=== PATIENT | male | born 1945 | race Caucasian/White ===

== ENCOUNTER 2019-10-18 12:38 | Outpatient (CLI) | payer MEDICARE, SELFPAY ==
--- NOTE | ~2019-10-18 | US_ITS ---
EXAMINATION:US venous doppler LE RT INDICATION:Right leg pain and swelling TECHNIQUE: Multiple grayscale, color flow and Doppler images of the right lower extremity deep venous systems were obtained and reviewed. COMPARISON:No prior studies for comparison. FINDINGS: The common femoral, superficial femoral and popliteal veins demonstrate normal respiratory variation, augmentation and compressibility. Color flow is also seen within the posterior tibial, pe roneal, greater saphenous and profunda veins. IMPRESSION: 1: No lower extremity deep venous thrombosis. Reviewed, dictated and finalized at location B.
== END 2019-10-18 12:39 | disposition home or self-care (01) ==
PROVIDERS: PCP Internal Medicine; Visit Provider Internal Medicine
DX: R52 Pain, unspecified (principal); R60.9 Edema, unspecified
CPT/HCPCS: 93971

== ENCOUNTER 2021-05-04 11:36 | Inpatient (IN) | payer MEDICARE, SELFPAY ==
[2021-05-04] VITALS (12 sets, daily range): BP systolic 158–165; BP diastolic 100–118; PULSE 87–104; RESP 18–34; TEMP 37.1; O2SAT 95–97
--- NOTE | ~2021-05-04 | CT_ITS ---
EXAMINATION: CT brain wo con DATE: 05/04/2021 14:03 INDICATION: Slurred speech. Weakness. TECHNIQUE: Computed tomography (CT) of the head was performed without intravenous contrast. The mA wa s adjusted according to patient size. Iterative reconstruction technique was employed. The dose-lengt h product was 681.00 mGy-cm. COMPARISON: Head CT 11/12/2017 FINDINGS: There is an infarct in right parietal occipital region. There are scattered areas of low at tenuation in the cerebral white matter. There is a small old infarct in left parietal lobe. There is no intracranial hemorrhage or abnormal mass lesion. The ventricles are normal in size. There is mild mucosal thickening in the paranasal sinuses. The orbits are normal. There is a right mastoid effusion . IMPRESSION: 1. Age-indeterminate infarct in right parietal occipital region. 2. Small old infarct in left parietal lobe. 3. Moderate nonspecific cerebral white matter disease, which likely represents chronic small vessel i schemic disease. Reviewed, dictated and finalized at location A. CH DUMPER IMPRESSION: 1. Age-indeterminate infarct in right parietal occipital region. 2. Small old infarct in left parietal lobe. 3. Moderate nonspecific cerebral white matter disease, which likely represents chronic small vessel ischemic disease.
--- NOTE | ~2021-05-04 | US_ITS ---
US venous doppler LE RT DATE: 05/04/2021 14:28 INDICATION: Right lower extremity swelling TECHNIQUE: Real-time and color flow imaging and Doppler analysis of the veins of the right lower extr emity COMPARISON: 10/18/2019 venous duplex examination of the right lower extremity FINDINGS: The greater saphenous vein is patent. There is normal color flow signal and augmentation an d normal compression of the deep veins of the right lower extremity. There is no evidence of venous t hrombosis. There is an approximately 3.1 x 0.7 x 1.8 cm popliteal cyst. IMPRESSION: No evidence of deep venous thrombosis Right popliteal cyst Reviewed, dictated and finalized at Location A. Reviewed, dictated and finalized at location A. FORCEMENT MAKER
--- NOTE | ~2021-05-04 | US_ITS ---
EXAMINATION: US carotid duplex BI DATE: 05/05/2021 08:42 INDICATION: Speech deficit. Cerebrovascular accident. TECHNIQUE: Grayscale, color Doppler, and pulsed Doppler images of the cervical carotid arteries were obtained. The degree of vessel stenosis is placed in one of the following categories: normal, <50%, 5 0-69%, >=70% but less than near-occlusion, near-occlusion, or total occlusion. Note that percent sten osis relative to normal distal artery lumen diameter is indirectly measured from velocity measurement s as described by Valentino, et al. Radiology 2003; 229:340-346. COMPARISON: CTA neck 05/04/21 FINDINGS: RIGHT: The right common carotid artery (CCA) peak systolic velocity (PSV) is 72 cm/s. The right internal car otid artery (ICA) PSV is 192 cm/s. The right ICA end-diastolic velocity (EDV) is 81 cm/s. The right I CA/CCA PSV ratio is 2.7. Grayscale and color Doppler images yield an estimate of <50% diameter reduct ion from plaque in the ICA. There is antegrade flow in the right vertebral artery. LEFT: The left CCA PSV is 74 cm/s. The left ICA PSV is 197 cm/s. The left ICA EDV is 74 cm/s. The left ICA/ CCA PSV ratio is 2.7. Grayscale and color Doppler images yield an estimate of <50% diameter reduction from plaque in the ICA. There is antegrade flow in the left vertebral artery. IMPRESSION: 1. <50% stenosis in the right internal carotid artery. 2. <50% stenosis in the left internal carotid artery. Reviewed, dictated and finalized at location A. PATIAL IMAGERY INTELLIGENCE ANALYST
--- NOTE | ~2021-05-04 | XR_ITS ---
EXAMINATION: XR chest 1V portable DATE: 05/06/2021 07:11 INDICATION: Shortness of breath. Bacterial pneumonia and fluid overload. TECHNIQUE: A single frontal view of the chest was obtained. COMPARISON: Chest single view 05/04/2021 FINDINGS: There are airspace opacities in all lung zones bilaterally, left worse in right. No pleural effusion or pneumothorax. Cardiomegaly is noted. IMPRESSION: 1. Diffuse lung disease with improvement on the right, consistent with pulmonary edema versus pneumon ia. 2. Cardiomegaly. Reviewed, dictated and finalized at location A. WARE QUALITY ANALYST IMPRESSION: 1. Diffuse lung disease with improvement on the right, consistent with pulmonar y edema versus pneumonia. 2. Cardiomegaly.
--- NOTE | ~2021-05-04 | XR_ITS ---
EXAMINATION: XR chest 1V portable DATE: 05/04/2021 12:56 INDICATION: Shortness of breath. TECHNIQUE: A single frontal view of the chest was obtained. COMPARISON: Chest 2 views 09/25/2013, CT abdomen and pelvis 01/12/2017 FINDINGS: There are airspace opacities in the mid and lower lung zones. No pleural effusion or pneumo thorax. Cardiomegaly is noted. There are old healed right rib fractures. IMPRESSION: 1. Airspace opacities in the mid and lower lung zones, consistent with pulmonary edema versus pneumon ia. 2. Cardiomegaly. Reviewed, dictated and finalized at location A. INSPECTOR IMPRESSION: 1. Airspace opacities in the mid and lower lung zones, consistent with pulmonar y edema versus pneumonia. 2. Cardiomegaly.
--- NOTE | ~2021-05-04 | CT_ITS ---
EXAMINATION: CTA brain carotid DATE: 05/04/2021 16:14 INDICATION: Speech deficit. TECHNIQUE: Computed tomographic angiography (CTA) of the head was performed with 100 mL Omnipaque-350 intravenous contrast. CTA of the neck was performed with intravenous contrast. Automated exposure co ntrol and iterative reconstruction technique were employed. The dose-length product was 1292.87 mGy-c m. Maximum intensity projection and volume rendered 3D-reconstructions were created by the technologi st on a separate workstation. COMPARISON: Head CT 05/04/2021 FINDINGS: HEAD CTA: There is an infarct in the right parietal-occipital region. There are scattered areas of lo w attenuation in the cerebral white matter. There is a small old infarct in left parietal lobe. There is internal hemorrhage or abnormal mass lesion. The ventricles are normal in size. The orbits are no rmal. There is a right mastoid effusion. There is mild mucosal thickening in the paranasal sinuses. T he vertebral arteries are codominant. There is no significant stenosis of basilar artery or the poste rior cerebral arteries. There is no significant stenosis of the intracranial internal carotid arterie s or anterior or middle cerebral arteries. Anterior communicating artery is normal. The posterior com municating arteries are normal. NECK CTA: There are moderate-sized bilateral pleural effusions. There are groundglass opacities and s eptal thickening in the lungs. There are airspace opacities in the lungs bilaterally with a dependent predominance. There is mild mediastinal lymphadenopathy, likely reactive. The right sternocleidomast oid muscle in right submandibular gland are absent. There are no pathologically enlarged lymph nodes. There is plaque in the proximal internal carotid arteries. There is 38% stenosis of the proximal rig ht internal carotid artery relative to normal distal artery lumen diameter (NASCET criteria). There i s 12% stenosis of the proximal left internal carotid artery relative to normal distal artery lumen di ameter. There is no significant stenosis of the vertebral arteries. There is severe cervical spondylo sis. IMPRESSION: 1. Age-indeterminate infarct in right parietal occipital region. 2. Small old infarct in left parietal lobe. 3. Moderate nonspecific cerebral white matter disease, which likely represents chronic small vessel i schemic disease. 4. No aneurysm or significant intracranial arterial stenosis. 5. 38% stenosis of the proximal right internal carotid artery relative to normal distal artery lumen diameter (NASCET criteria). 6. 12% stenosis of the proximal left internal carotid artery relative to normal distal artery lumen d iameter. 7. Moderate-sized bilateral pleural effusions. 8. Diffuse lung disease, likely moderate pulmonary edema and dependent atelectasis. Reviewed, dictated and finalized at location A. A CRITIC IMPRESSION: 1. Age-indeterminate infarct in right parietal occipital region. 2. Small old infarct in left parietal lobe. 3. Moderate nonspecific cerebral white matter disease, which likely represents chronic small vessel ischemic disease. 4. No aneurysm or significant intracranial arterial stenosis. 5. 38% stenosis of the proximal right internal carotid artery relative to dennise l distal artery lumen diameter (NASCET criteria). 6. 12% stenosis of the proximal left internal carotid artery relative to normal distal artery lumen diameter. 7. Moderate-sized bilateral pleural effusions. 8. Diffuse lung disease, likely moderate pulmonary edema and dependent atelecta sis.
--- NOTE | 2021-05-04 11:44 | ECG_ITS ---
Measurements Intervals [place] Rate: 98 P: SC: 0 QRS: 21 QRSD: 97 T: 27 QT: 379 QTc: 484 Interpretive Statements ATRIAL FIBRILLATION FREQUENT VENTRICULAR PREMATURE COMPLEXES BORDERLINE R WAVE PROGRESSION, ANTERIOR LEADS CONSIDER INFERIOR INFARCT, AGE INDETERMINATE BASELINE ARTIFACT- I, II, III, AVR, AVF, V2-V6 ABNORMAL ECG Electronically Signed On 05-05-2021 16:16:07 RECORD PRESS TENDER by Thang Guerra D.O.
[2021-05-04 12:01] LABS: Basophils Absolute Auto 0.1 K/mm3 (0.0-0.1); Basophils Percent Auto 0.5 % (0.2-1.2); Eosinophils Percent Auto 0.2 % (0-4.4); Hematocrit 49.4 % (42.0-52.0); Immature Granulocyte Absolute 0.07 K/mm3 (0.00-0.031); Immature Granulocyte Percent A 0.6 % (0-0.5); Lymphocytes Percent Auto 22.2 % (18.3-44.2); Mean Corpuscular HGB Conc 32.4 g/dl (32-36); Mean Corpuscular Hemoglobin 30.4 pg (26-34); Mean Corpuscular Volume 93.7 fl (80-100); Mean Platelet Volume 10.3 fl (7.4-10.4); Monocytes Absolute Auto 1.3 K/mm3 (0.1-0.6); Monocytes Percent Auto 10.5 % (2.6-8.5); Platelet Count Result 214 k/mm3 (150-375); Red Blood Count 5.27 M/mm3 (4.6-6.20); Red Cell Distribution Width 15.4 % (11.5-14.5); White Blood Count 12.2 K/mm3 (4.5-10.0)
[2021-05-04 12:11] LABS: INR 1.2
[2021-05-04 12:12] LABS: Partial Thromboplastin Time 29.2 SECONDS (22.3-36.8)
--- NOTE | 2021-05-04 12:14 | PC.NURSE ---
Per pt has been lethargic the last 4 days and sleeping more than usual. She also noted some slurred speech and that he seemed to be short of breath but pt had no complaints other than some back pain. She called 911 when he was unable to hold a conversation with her and had difficulty standing/walking. Denies sick contacts. States they never leave the house.
[2021-05-04 12:19] LABS: Alanine Aminotransferase 39 U/L (4-50); Albumin Level 4.4 g/dL (3.5-5.1); Alkaline Phosphatase 70 U/L (38-126); Anion Gap 2 mmol/L (8-16); Aspartate Amino Transferase 41 U/L (17-59); Bilirubin,Total 1.1 mg/dL (0.2-1.3); Blood Urea Nitrogen 26 mg/dL (9-20); Calcium 8.8 mg/dL (8.4-10.2); Carbon Dioxide 34 mmol/L (22-30); Chloride 108 mmol/L (98-107); Estimated CRCL calculation 70 ml/min; Estimated Glomerular Filt Rate 54; Glucose 144 mg/dL (65-110); Potassium 4.8 mmol/L (3.4-5.0); Sodium 144 mmol/L (137-145)
[2021-05-04 12:21] LABS: Alveolar/Arterial O2 Gradient 201.6 mmHg; Base Excess ABG -0.3 mEq/l (+/-2.0); Carboxyhemoglobin 1.4 % THb (0-2.0); Fractional Inspired Oxygen 52 %; HCO3 ABG 30.5 mEq/l (22.0-26.0); Methemoglobin ABG 0.4 %THb (0-1.5); Oxygen Saturation ABG 92.8 % (95.0-100.0); Oxyhemoglobin 92.1 % THb (90.0-100.0); PO2 ABG 80.7 mmHg (80.0-100.0); PO2 FiO2 Ratio Arterial Blood 1.55 %; Reduced Hemoglobin 6.1 %THb (0-5.0); Total Hemoglobin 16.2 g/dL (12.0-18.0)
[2021-05-04 12:22] LABS: Modified Allen's Test Pass; Site Drawn RIGHT RADIAL; pH ABG 7.204 (7.350-7.450)
[2021-05-04 12:23] LABS: Device HIGH FLOW NASAL CANN
[2021-05-04 12:31] LABS: NT Pro B Type Natriuretic Pept 2520 pg/mL (5-100); Troponin I < 0.012 ng/mL (0.000-0.034)
--- NOTE | 2021-05-04 13:49 | ED.SOB ---
HPI - SOB/Dyspnea General Chief Complaint: Shortness of Breath/Dyspnea Stated Complaint: LOW O2 SATS Time Seen by Provider: 05/04/21 11:54 Source: patient, EMS and RN notes reviewed Mode of arrival: EMS Limitations: altered mental status History of Present Illness HPI Narrative: This is a 75 year old male with history of atrial fibrillation, Squamous cell carcinoma, and hypertension who presents for evaluation of difficulty breathing and confusion. Nursing staff spoke to patient's . She told nursing that he has been lethargic for 4 days. Today he was slurred his speech and having difficulty conversing with her. He was also too weak to walk today so they called EMS. EMS reported to nursing that his oxygen saturation was 60s in room air, so patient was placed on nonrebreather. Patient denies any shortness of breath , chest pain, abdominal pain, nausea or vomiting. He is oriented to person and place. He denies any lung or heart disease. He reports atrial fibrillation. Related Data Home Medications Medication Instructions Recorded Confirmed aspirin 81 mg tablet,delayed 81 mg PO DAILY 03/16/19 11/21/20 release finasteride 5 mg tablet 5 mg PO DAILY 03/16/19 11/21/20 Allergies Allergy/AdvReac Type Severity Reaction Status Date / Time No Known Allergies Allergy Verified 05/04/21 16:28 Review of Systems Review of Systems: All systems reviewed & are unremarkable except as noted in HPI and below PMFSH Past Medical History Medical History (Updated 05/04/21 @ 19:03 by Cristiana Harden MD) BPH (benign prostatic hyperplasia) CVA (cerebral vascular accident) Hx of atrial fibrillation, no current medication Hyperlipidemia Hypertension Hypothyroidism Obesity Surgical History Surgical History (Updated 05/04/21 @ 17:17 by Chloe Hunt NP) History of removal of pigmented skin lesion S/P TURP Family History Family History Sibling Patient's sister is in good health Family history of lung cancer, Onset Age: 62 Family history of malignant neoplasm of breast Father Family history of primary malignant neoplasm of liver Social History Social History (Updated 05/04/21 @ 17:30 by Chloe Hunt NP) Social History: The patient lives with his lucille. He states that he has three children . 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 He used to drink heavily when he was younger. Code staus : full code Smoking status: Former smoker Second hand tobacco smoke exposure: No Smoking end date: 04/06/14 Alcohol intake: never Substance use: never Exam Const: General: alert and ill appearing Nutritional Appearance: obese Eyes: EOM: EOMs intact bilaterally Resp: Effort & Inspection: normal respiratory effort and no retractions Auscultation: clear to auscultation bilaterally Cardio: Rate: regular rate Rhythm: abnormal rhythm Heart sounds: no murmurs GI: GI Palp: Yes Soft to palpation, No Tenderness to palpation present (GI) and No Guarding due to palpation present (GI) Auscultation: normal bowel sounds Skin: Other: right leg with erythematous rash, no tenderness. Neuro: General: patient oriented x3 and moves all extremities Extrem: General: edema Psych: Mental Status: mental status grossly normal Affect: normal affect Course Reevaluation(s) Reevaluation #1: Patient has been oriented x 3 . He is improving in BIPAP slowly. CTA did not show any significant narrowing or thrombus so will admit to [facility] for evaluation. Treating CHF and pneumonia. Patient is aware of his admission to [facility]. Date: 05/04/21 Time: 17:30 Consultations Consultation #1: I discussed case with Chloe Hunt who accepts patient to hospitalist service for acute respiratory failure. CT shows possible age indeterminate infarct. PAtient has no focal deficits on exam. Patient's last known
[2021-05-04 13:59] LABS: Alveolar/Arterial O2 Gradient 191.8 mmHg; Base Excess ABG 0.2 mEq/l (+/-2.0); Carboxyhemoglobin 1.7 % THb (0-2.0); Fractional Inspired Oxygen 50 %; HCO3 ABG 30.7 mEq/l (22.0-26.0); Methemoglobin ABG 0.2 %THb (0-1.5); Oxygen Saturation ABG 92.2 % (95.0-100.0); Oxyhemoglobin 91.8 % THb (90.0-100.0); PO2 ABG 77.5 mmHg (80.0-100.0); PO2 FiO2 Ratio Arterial Blood 1.55 %; Reduced Hemoglobin 6.3 %THb (0-5.0); Total Hemoglobin 16.3 g/dL (12.0-18.0)
[2021-05-04 14:00] LABS: PCO2 ABG 77.5 mmHg (35.0-45.0); pH ABG 7.216 (7.350-7.450)
[2021-05-04 14:01] LABS: Device BIPAP; Expiratory Pressure 6 cmH2O; Inspiratory Pressure 14 cmH2O; Modified Allen's Test Pass; Site Drawn LEFT RADIAL
[2021-05-04 14:23] LABS: SARS-CoV-2 RNA PCR Negative
[2021-05-04] MEDS: FUROSEMIDE INJ 40 MG/4 ML VIAL IV PUSH ×2 (15:34→21:29)
[2021-05-04 15:58] LABS: Free T4 Free Thyroxine Reflex 0.83 ng/dL (0.78-2.19)
--- NOTE | 2021-05-04 16:27 | PM.IMHP ---
H&P: HPI History of Present Illness Date/Time: 05/04/21 16:27 this is a 75-year-old male patient with past medical history of atrial fibrillation. The patient has had edema to his lower extremities for over year. The patient has been lethargic for 4 days. He has had a slurred speech and having difficulty conversing with her. The patient has been complaining of having lower back pain due to laying on the couch frequently. The patient was to weak to walk today therefore the EMS was activated. The patient denied being short of breath however his O2 saturations were noted to be 60% air. The patient was then placed on a non-rebreather. Patient is answering some questions for me when I entered the room. The patient currently on a BiPAP machine with settings 18/6 50% FiO2 and a rate of 24. His white count is 12.2. ABG pH 7.216, pCO2 77.5, PO2 77.5, and O2 saturation 92.2% his BNP is reported as 2520. Patient's right leg is red and excoriated. He has 4+ edema to the right lower extremity and 3+ pitting edema to the left. Patient's right leg is blanchable. Patient's venous Doppler to the right lower extremity shows no evidence of deep vein thrombosis. He has a right popliteal cyst. Chest x-ray was read as airspace opacities in the mid lower lung zones consistent with pulmonary edema versus pneumonia. Cardiomegaly. Head CT was read as the following 1. Age-indeterminate infarct in right parietal occipital region. 2. Small old infarct in left parietal lobe. 3. Moderate nonspecific cerebral white matter disease, which likely represents chronic small vessel ischemic disease. A consult was placed for neurology. The patient was started on azithromycin Rocephin as well as a dose of IV Lasix in the emergency room. Blood cultures are pending. It is difficult to get a history from the patient at this time due to him being on a BiPAP. The patient appears to be more awake and is moving all extremities. The patient is negative for COVID. However it is difficult to understand with the patient is staying with the BiPAP on. The patient is being admitted to inpatient services on the date of 05/04/2021. Chief Complaint: Confusion hypoxic Review of Systems Review of Systems: ROS unobtainable: Yes unobtainable due to mental status PMFSH Past Medical History Medical History (Updated 05/04/21 @ 17:46 by Chloe Hunt NP) BPH (benign prostatic hyperplasia) CVA (cerebral vascular accident) Hx of atrial fibrillation, no current medication Hyperlipidemia Hypertension Hypothyroidism Obesity Surgical History Surgical History (Updated 05/04/21 @ 17:17 by Chloe Hunt NP) History of removal of pigmented skin lesion S/P TURP Family History Family History Sibling Patient's sister is in good health Family history of lung cancer, Onset Age: 62 Family history of malignant neoplasm of breast Father Family history of primary malignant neoplasm of liver Social History Social History (Updated 05/04/21 @ 17:30 by Chloe Hunt NP) Social History: The patient lives with his lucille. He states that he has three children . 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 He used to drink heavily when he was younger. Code staus : full code Smoking status: Former smoker Second hand tobacco smoke exposure: No Smoking end date: 04/06/14 Alcohol intake: never Substance use: never Meds Home Medications and Allergies Home Medications Medication Instructions Recorded Confirmed Type aspirin 81 mg tablet,delayed 81 mg PO DAILY 03/16/19 11/21/20 History release finasteride 5 mg tablet 5 mg PO DAILY 03/16/19 11/21/20 History lisinopril 40 mg tablet 40 mg PO DAILY #90 tablet 06/22/20 11/21/20 Rx metoprolol tartrate 50 mg tablet 50 mg PO BID #180 tablet 06/22/20 11/21/20 Rx levothyroxine 112 mcg tablet 112 mcg PO DAILY #90 tablet
[2021-05-04 16:39] LABS: Total Triiodothyronine (T3) 0.71 NG/ML (0.97-1.69)
[2021-05-04 18:00] LABS: Alveolar/Arterial O2 Gradient 211.7 mmHg; Base Excess ABG 1.8 mEq/l (+/-2.0); Fractional Inspired Oxygen 50 %; HCO3 ABG 31.8 mEq/l (22.0-26.0); Oxygen Content ABG 19.9 %vol (16.0-22.0); PO2 ABG 60.8 mmHg (80.0-100.0); PO2 FiO2 Ratio Arterial Blood 1.22 %; Total Hemoglobin 16.2 g/dL (12.0-18.0)
[2021-05-04 18:01] LABS: pH ABG 7.247 (7.350-7.450)
[2021-05-04 18:05] LABS: Oxygen Saturation ABG 86.2 % (95.0-100.0); Oxyhemoglobin 87.5 % THb (90.0-100.0); PCO2 ABG 74.7 mmHg (35.0-45.0)
[2021-05-04 18:06] LABS: Device BIPAP; Expiratory Pressure 6 cmH2O; Inspiratory Pressure 18 cmH2O; Modified Allen's Test Pass; Site Drawn RIGHT RADIAL
[2021-05-04 19:15] LABS: Add Urine Microscopic? YES; Appearance Urine Clear (Clear); Bilirubin Urine Negative (Negative); Blood Urine 1+ (Negative); Color Urine Straw (Yellow); Glucose Urine UA Negative (Negative); Ketones Urine Negative (Negative); Leukocyte Esterase Ur Negative LEU/UL (Negative); Mucus Urine Rare /lpf; Nitrate Urine Negative (Negative); Protein Urine 2+ mg/dL (Negative); RBC Urine 0-2 /hpf (0-2); Specific Grav Ur 1.018 (1.001-1.035); Squamous Epithelial Cell Urine Rare /hpf (Few); Urobilinogen Urine Negative mg/dL (<2.0); WBC Urine 0-3 /hpf
[2021-05-04] MEDS: IPRATROPIUM BR 0.02% INH SOLN 0.5 MG/2.5 ML VIAL INHALATION (19:34)
[2021-05-04] MEDS: ALBUTEROL SULFATE NEB 2.5 MG/0.5 ML INH INHALATION (19:34)
[2021-05-04 20:39] LABS: Alveolar/Arterial O2 Gradient 217.4 mmHg; Fractional Inspired Oxygen 50 %; HCO3 ABG 31.2 mEq/l (22.0-26.0); Oxygen Content ABG 21.1 %vol (16.0-22.0); Oxygen Saturation ABG 91.8 % (95.0-100.0); Oxyhemoglobin 92.7 % THb (90.0-100.0); PO2 ABG 68.7 mmHg (80.0-100.0); PO2 FiO2 Ratio Arterial Blood 1.37 %; Total Hemoglobin 16.2 g/dL (12.0-18.0); pH ABG 7.316 (7.350-7.450)
[2021-05-04 20:40] LABS: PCO2 ABG 62.6 mmHg (35.0-45.0)
[2021-05-04 20:41] LABS: Device BIPAP; Modified Allen's Test Pass; Site Drawn RIGHT RADIAL
[2021-05-04 20:42] LABS: Expiratory Pressure 6 cmH2O; Inspiratory Pressure 20 cmH2O
[2021-05-05] VITALS (32 sets, daily range): BP systolic 103–153; BP diastolic 55–85; PULSE 85–119; RESP 20–26; TEMP 35.9–37.2; O2SAT 94–100; BMI 43.4
--- NOTE | 2021-05-05 01:04 | ADMGEN ---
This patient, Evan Wright Jr., was admitted to IMU Room 203-01 on 05/05/21 at 0045. Patient/family oriented to hospital policies and general routines including ID bracelet, bed and alarms, visiting hours, pain management, procedures, bathroom and other care routines, personal items, smoking policy, room service/diet, and visiting hours. Information on how to activate the Rapid Response Team has been discussed. Patient/Family are encouraged to report perceived risks to care and to ask questions if they do not understand what they are told or what they should do.
[2021-05-05] MEDS: ALBUTEROL SULFATE NEB 2.5 MG/0.5 ML INH INHALATION ×4 (02:20→20:53)
[2021-05-05] MEDS: IPRATROPIUM BR 0.02% INH SOLN 0.5 MG/2.5 ML VIAL INHALATION ×4 (02:20→20:52)
[2021-05-05 05:13] LABS: Alveolar/Arterial O2 Gradient 207.8 mmHg; Base Excess ABG 4.2 mEq/l (+/-2.0); Fractional Inspired Oxygen 50 %; Oxygen Saturation ABG 92.6 % (95.0-100.0); Oxyhemoglobin 92.4 % THb (90.0-100.0); PO2 ABG 72.3 mmHg (80.0-100.0); PO2 FiO2 Ratio Arterial Blood 1.45 %; Total Hemoglobin 15.4 g/dL (12.0-18.0); pH ABG 7.305 (7.350-7.450)
[2021-05-05 05:16] LABS: Device BIPAP; Inspiratory Pressure 20 cmH2O; Modified Allen's Test Pass; PCO2 ABG 67.9 mmHg (35.0-45.0); Site Drawn RIGHT RADIAL
[2021-05-05 05:17] LABS: Expiratory Pressure 6 cmH2O
[2021-05-05 05:25] LABS: Basophils Absolute Auto 0.1 K/mm3 (0.0-0.1); Basophils Percent Auto 0.6 % (0.2-1.2); Eosinophils Absolute Auto 0.1 K/mm3 (0-0.3); Eosinophils Percent Auto 1.3 % (0-4.4); Hematocrit 47.1 % (42.0-52.0); Hemoglobin 14.4 g/dL (14.0-18.0); Immature Granulocyte Absolute 0.03 K/mm3 (0.00-0.031); Immature Granulocyte Percent A 0.3 % (0-0.5); Lymphocytes Absolute Auto 2.26 K/mm3 (0.9-3.2); Lymphocytes Percent Auto 21.9 % (18.3-44.2); Mean Corpuscular HGB Conc 30.6 g/dl (32-36); Mean Corpuscular Hemoglobin 29.8 pg (26-34); Mean Corpuscular Volume 97.5 fl (80-100); Mean Platelet Volume 11.2 fl (7.4-10.4); Monocytes Absolute Auto 1.3 K/mm3 (0.1-0.6); Monocytes Percent Auto 12.7 % (2.6-8.5); Neutrophils Absolute Auto 6.5 K/mm3 (1.3-6.7); Neutrophils Percent Auto 63.2 % (45.5-73.1); Platelet Count Result 194 k/mm3 (150-375); Red Blood Count 4.83 M/mm3 (4.6-6.20); Red Cell Distribution Width 15.6 % (11.5-14.5); White Blood Count 10.3 K/mm3 (4.5-10.0)
[2021-05-05 05:49] LABS: Alanine Aminotransferase 29 U/L (4-50); Albumin Level 3.8 g/dL (3.5-5.1); Alkaline Phosphatase 53 U/L (38-126); Anion Gap 3 mmol/L (8-16); Aspartate Amino Transferase 31 U/L (17-59); Bilirubin,Total 1.1 mg/dL (0.2-1.3); Blood Urea Nitrogen 25 mg/dL (9-20); Calcium 8.4 mg/dL (8.4-10.2); Carbon Dioxide 34 mmol/L (22-30); Chloride 104 mmol/L (98-107); Estimated CRCL calculation 62 ml/min; Estimated Glomerular Filt Rate 46; Glucose 114 mg/dL (65-110); Lactate Dehydrogenase 509 U/L (313-618); Lipase 109 U/L (23-300); Magnesium 1.9 mg/dL (1.6-2.3); Potassium 3.9 mmol/L (3.4-5.0); Sodium 141 mmol/L (137-145)
[2021-05-05 07:29] LABS: Glucose Point of Care 97 mg/dl (65-105)
[2021-05-05] MEDS: FUROSEMIDE INJ 40 MG/4 ML VIAL IV PUSH ×2 (09:06→20:34)
[2021-05-05] MEDS: ASPIRIN 81 MG ENTERIC TABLET PO (09:06)
[2021-05-05 11:36] LABS: Free T4 Free Thyroxine Reflex 0.87 ng/dL (0.78-2.19)
--- NOTE | 2021-05-05 12:00 | WPDNEURCNPN ---
Assessment and Plan Additional Plan 1. Right parieto-occipital stroke by CTA. With small old infarct in left parietal lobe as well. No aneurysm or significant intracranial arterial stenosis. 2. 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 Normal carotid ultrasound 3. Atrial fibrillation and with documentation of bihemispheric stroke will benefit from anticoagulation if there is no other contraindication. An echocardiogram will be obtained. Consult date: 05/05/21 HPI: Evan Wright Jr. is a 75 year old male Admitted to the hospital for the complaints of change in the mental status and difficulties in breathing and confusion in addition to ongoing history of 1. Atrial fibrillation 2. Squamous cell carcinoma 3. Hypertension as per the nursing staff he had been lethargic for four days on the day of admission he complained of slurred speech and had difficulties in conversation. He was too weak to walk so the call the EMS who brought him to the emergency room his oxygen saturation was down to 60 on room air when he was placed on non-rebreather. He had been taking aspirin eighty one mg daily with finasteride five and he is not known to be allergic to any medications. But he did have the history of cerebrovascular accident in the past along with history of atrial fibrillation, hypertension, hypothyroidism, and benign prostatic hyperplasia. He is a former smoker and never drink alcohol. Patient was admitted to the hospital for acute respiratory failure. Pertinent lab included CBC with mild leukocytosis and BNP of two thousand five hundred in twenty along with low PO2. Initial chest x-ray documented cardiomegaly, moderate nonspecific white matter disease on CT scan of the brain without evidence of bleed venous Doppler study negative with right popliteal cyst, negative CTA of the head and neck Review of Systems Review of Systems: All systems reviewed & are unremarkable except as noted in HPI and below PMFSH Past Medical History Medical History BPH (benign prostatic hyperplasia) CVA (cerebral vascular accident) Hx of atrial fibrillation, no current medication Hyperlipidemia Hypertension Hypothyroidism Obesity Surgical History Surgical History History of removal of pigmented skin lesion S/P TURP Family History Family History Sibling Patient's sister is in good health Family history of lung cancer, Onset Age: 62 Family history of malignant neoplasm of breast Father Family history of primary malignant neoplasm of liver Social History Social History Social History: The patient lives with his lucille. He states that he has three children . 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 He used to drink heavily when he was younger. Code staus : full code Smoking packs per day: 1 Smoking cigarettes per day: 20.0 Years smoked: 40 Smoking pack-years: 40.00 Smoking status: Former smoker Second hand tobacco smoke exposure: No Smoking end date: 04/06/14 Alcohol intake: never Substance use: never Spiritual care concerns: No Meds Home Medications and Allergies Home Medications Medication Instructions Recorded Confirmed Type aspirin 81 mg tablet,delayed 81 mg PO DAILY 03/16/19 05/05/21 History release finasteride 5 mg tablet 5 mg PO DAILY 03/16/19 05/05/21 History lisinopril 40 mg tablet 40 mg PO DAILY #90 tablet 06/22/20 05/05/21 Rx metoprolol tartrate 50 mg tablet 50 mg PO BID #180 tablet 06/22/20 05/05/21 Rx levothyroxine 112 mcg tablet 112 mcg PO DAILY #90 tablet 11/21/20 05/05/21 Rx felodipine 5 mg tablet,extended 5 mg PO DAILY #90 tablet 12/11/20 05/05/21 Rx release 24 hr simvastatin 10
--- NOTE | 2021-05-05 13:55 | PM.IMPN ---
Progress Note: A&P Assessment and Plan (1) Cerebral infarct: Qualifiers: Laterality of affected vessel: unspecified Code(s): I63.9 - Cerebral infarction, unspecified Status: Acute Assessment and Plan: Pt seen by neurology Right parieto-occipital stroke by CTA. With small old infarct in left parietal lobe as well. No aneurysm or significant intracranial arterial stenosis. Echo pending US carotids negative MRI pt could not have earlier this morning due to severe hypoxia, can go elena AM for MRI. PT IS ON ASA and STATIN (2) Congestive heart failure: Qualifiers: Heart failure chronicity: acute Code(s): I50.9 - Heart failure, unspecified Status: Acute Assessment and Plan: An echo has been ordered. Continue with IV Lasix. Continue with metoprolol on lisinopril. Monitor BMP (3) Pneumonia: Code(s): J18.9 - Pneumonia, unspecified organism Status: Acute Assessment and Plan: Patient was started on azithromycin Rocephin. Nebulizer treatments. Blood and sputum cultures are pending. (4) Acute respiratory failure with hypoxia and hypercapnia: Code(s): J96.01 - Acute respiratory failure with hypoxia; J96.02 - Acute respiratory failure with hypercapnia Status: Acute Assessment and Plan: Pt was on bipap this morning, pt had abg pt is reduced to 4 liters of oxygen. Pts COVID screening was negative. According to the chest x-ray it could be pulmonary edema versus pneumonia. However the patient's BNP is elevated and he is edematous. Continue with iv lasix and IV rocephin and Azithromycin (5) BPH (benign prostatic hyperplasia): Code(s): N40.0 - Benign prostatic hyperplasia without lower urinary tract symptoms Status: Acute Assessment and Plan: Continue with finasteride (6) Hx of atrial fibrillation, no current medication: Code(s): Z86.79 - Personal history of other diseases of the circulatory system Status: Chronic Assessment and Plan: Continue with metoprolol (7) Hypertension: Code(s): I10 - Essential (primary) hypertension Status: Chronic Assessment and Plan: Continue with metoprolol and lisinopril, Bp is 103/73 continue to watch. (8) Hyperlipidemia: Code(s): E78.5 - Hyperlipidemia, unspecified Status: Chronic Assessment and Plan: Continue with simvastatin. (9) Obesity: Code(s): E66.9 - Obesity, unspecified Status: Acute Assessment and Plan: Adviced to loose weight (10) Hypothyroidism: Code(s): E03.9 - Hypothyroidism, unspecified Status: Acute Assessment and Plan: Continue with levothyroxine (11) CVA (cerebral vascular accident): Code(s): I63.9 - Cerebral infarction, unspecified Status: Chronic Assessment and Plan: Patient has age indeterminate infarction the right parietal occipital region. The patient was started on an aspirin. Neurology consulted. MRI brain and US CAROTIDS and echo ordered. Subjective Date/time seen: 05/05/21 13:55 Interval history: INTERVAL HISTORY: 75-year-old male patient with past medical history of atrial fibrillation. The patient has had edema to his lower extremities for over year. The patient has been lethargic for 4 days. He has had a slurred speech and having difficulty conversing with her. The patient has been complaining of having lower back pain due to laying on the couch frequently. The patient was to weak to walk today therefore the EMS was activated. The patient denied being short of breath however his O2 saturations were noted to be 60% air. The patient was then placed on a non-rebreather. 05/05/2021: Pt is doing better today holding conversation not confused on 4 liters of oxygen. Pt could not have MRI earlier this morning as he was wearing his BIPAP and was too unwell, will postpone until elena AM. Pt is covid is negative cxr shows pneumonia. Review
[2021-05-05 14:21] LABS: Glucose Point of Care 129 mg/dl (65-105)
[2021-05-05 17:19] LABS: Glucose Point of Care 140 mg/dl (65-105)
[2021-05-05 18:23] LABS: Glucose Point of Care 137 mg/dl (65-105)
[2021-05-05 20:21] LABS: Glucose Point of Care 139 mg/dl (65-105)
[2021-05-06] VITALS (20 sets, daily range): BP systolic 114–154; BP diastolic 55–85; PULSE 92–122; RESP 18–26; TEMP 36.6–37; O2SAT 95–97
--- NOTE | 2021-05-06 | ECHO_ITS ---
Patient Info Name: Evan Wright Age: 75 years : 1945 Gender: Male Ht: 75 in Wt: 337 lbs BSA: 2.91 m2 HR: 101 bpm BP: 154 / 81 mmHg Heart Rhythm: Sinus Rhythm Technical Quality: Fair Exam Date: 05/06/2021 9:33 AM Exam Location: [facility] Pulmonary Patient Status: Inpatient Admit Date: 05/04/2021 Staff Ordering Physician: Chloe Hunt NP Phys Assistant: Julianna Sun RDCS Attending Provider: Jose G Bah MD Referring Physician: Gilbert MAN; Exam Type: CA echo dop color flow w con Study Info Indications - chf Complete two-dimensional, color flow and Doppler transthoracic echocardiogram is performed. Summary 1. Complete two-dimensional, color flow and Doppler transthoracic echocardiogram is performed. 2. Left ventricular chamber dimension is normal. 3. Definity contrast administered improved wall motion interpretation. 4. Left ventricular systolic function is normal, estimated at 55-60%. 5. There is mildly increased left ventricular wall thickness. 6. Left ventricular septal wall motion is abnormal with septal motion related to bundle branch block. 7. The left ventricular diastolic function is abnormal. 8. E/e' 12 is mildly elevated. 9. Right ventricular systolic function is reduced based on an abnormal TAPSE 1.2 cm. 10. Left atrial chamber dimension is mildly enlarged. 11. The aortic valve is not well visualized. Trileaflet aortic valve leaflets. 12. There is mild aortic valve sclerosis. 13. The mitral valve has mildly calcified annulus. 14. No pulmonary hypertension, estimated pulmonary arterial systolic pressure is 34 mmHg. 15. The aortic root size at the sinus of Valsalva is borderline dilated. Aortic annular calcification. Left Ventricle E/e' 12 is mildly elevated. Definity contrast administered improved wall motion interpretation. Left ventricular chamber dimension is normal. Left ventricular systolic function is normal, estimated at 55-60%. There is mildly increased left ventricular wall thickness. Left ventricular septal wall motion is abnormal with septal motion related to bundle branch block. The left ventricular diastolic function is abnormal. Right Ventricle Right ventricular systolic function is reduced based on an abnormal TAPSE 1.2 cm. Right ventricular chamber dimension is not well visualized. Left Atria Left atrial chamber dimension is mildly enlarged. Right Atria Right atrial chamber dimension is not well visualized. Aortic Valve The aortic valve is not well visualized. Trileaflet aortic valve leaflets. There is mild aortic valve sclerosis. There is no aortic valve stenosis. There is no aortic valve regurgitation. Pulmonic Valve There is no pulmonic regurgitation. Mitral Valve The mitral valve has mildly calcified annulus. There is no mitral valve stenosis. There is no mitral valve regurgitation. Tricuspid Valve There is no tricuspid valve regurgitation. No pulmonary hypertension, estimated pulmonary arterial systolic pressure is 34 mmHg. Pericardium/Pleural There is no pericardial effusion. Inferior Vena Cava Normal inferior vena cava with >50% collapse upon inspiration consistent with normal right atrial pressure, 5 mmHg. Aorta The aortic root size at the sinus of Valsalva is borderline dilated. Aortic annular calcification. Left Ventricular Outflow Tract Name Santa
[2021-05-06] MEDS: IPRATROPIUM BR 0.02% INH SOLN 0.5 MG/2.5 ML VIAL INHALATION ×4 (02:51→21:00)
[2021-05-06] MEDS: ALBUTEROL SULFATE NEB 2.5 MG/0.5 ML INH INHALATION ×4 (02:51→21:00)
[2021-05-06 05:26] LABS: Alveolar/Arterial O2 Gradient 142.5 mmHg; Base Excess ABG 5.2 mEq/l (+/-2.0); Fractional Inspired Oxygen 40 %; HCO3 ABG 32.4 mEq/l (22.0-26.0); Oxygen Content ABG 19.6 %vol (16.0-22.0); Oxygen Saturation ABG 94.6 % (95.0-100.0); PCO2 ABG 57.8 mmHg (35.0-45.0); PO2 ABG 76.2 mmHg (80.0-100.0); Total Hemoglobin 14.8 g/dL (12.0-18.0); pH ABG 7.366 (7.350-7.450)
[2021-05-06 05:28] LABS: Device NON-INVASIVE VENT; Modified Allen's Test Pass; Non-Invasive Expiratory Pressure 6 CMH2O; Non-Invasive Inspiratory Pressure 20 CMH2O; Non-Invasive Vent Rate 24 /MIN; Site Drawn RIGHT RADIAL
[2021-05-06 08:30] LABS: Glucose Point of Care 124 mg/dl (65-105)
[2021-05-06] MEDS: PERFLUTREN LIPID MICROSPHERES 1.5 ML VIAL DILUTED TO 10 ML TOTAL VOLUME IV PUSH (10:37)
--- NOTE | 2021-05-06 10:38 | IVDEFINITY ---
Prior to administration of IV Definity the patient was educated on the risks and benefits of the imaging enhancing agent including potential adverse side effects. The patient verbalized understanding. Allergies were verified. No exclusion criteria were identified and at least one of the following inclusion criteria were met: 1) physician request, 2) patient technically difficult to image (per the [place] [employer] guidelines of two or more segments not discernable within the apical view), or 3) questionable left ventricular function. ?
[2021-05-06] MEDS: ENOXAPARIN 40 MG/0.4 ML SYRINGE SUB-Q (11:19)
[2021-05-06] MEDS: FUROSEMIDE INJ 40 MG/4 ML VIAL IV PUSH ×2 (11:19→20:29)
[2021-05-06] MEDS: ATORVASTATIN 20 MG TABLET PO (11:19)
[2021-05-06] MEDS: ASPIRIN 325 MG ENTERIC TABLET PO (11:20)
[2021-05-06 12:46] LABS: Glucose Point of Care 177 mg/dl (65-105)
--- NOTE | 2021-05-06 14:39 | PM.IMPN ---
Progress Note: A&P Assessment and Plan (1) Cerebral infarct: Qualifiers: Laterality of affected vessel: unspecified Code(s): I63.9 - Cerebral infarction, unspecified Status: Acute Assessment and Plan: Pt seen by neurology Right parieto-occipital stroke by CTA. With small old infarct in left parietal lobe as well. No aneurysm or significant intracranial arterial stenosis. Echo pending US carotids negative MRI pt could not have due to BMI will have to have MRI outpatient. PT IS ON ASA and STATIN (2) Congestive heart failure: Qualifiers: Heart failure chronicity: acute Code(s): I50.9 - Heart failure, unspecified Status: Acute Assessment and Plan: An echo has been ordered. Continue with IV Lasix. Continue with metoprolol on lisinopril. Monitor BMP (3) Pneumonia: Code(s): J18.9 - Pneumonia, unspecified organism Status: Acute Assessment and Plan: Patient was started on azithromycin Rocephin. Nebulizer treatments. Blood and sputum cultures are pending. (4) Acute respiratory failure with hypoxia and hypercapnia: Code(s): J96.01 - Acute respiratory failure with hypoxia; J96.02 - Acute respiratory failure with hypercapnia Status: Acute Assessment and Plan: Pt was on bipap this morning, pt had abg pt is reduced to 4 liters of oxygen. Pts COVID screening was negative. According to the chest x-ray it could be pulmonary edema versus pneumonia. However the patient's BNP is elevated and he is edematous. Continue with iv lasix and IV rocephin and Azithromycin (5) BPH (benign prostatic hyperplasia): Code(s): N40.0 - Benign prostatic hyperplasia without lower urinary tract symptoms Status: Acute Assessment and Plan: Continue with finasteride (6) Hx of atrial fibrillation, no current medication: Code(s): Z86.79 - Personal history of other diseases of the circulatory system Status: Chronic Assessment and Plan: Continue with metoprolol (7) Hypertension: Code(s): I10 - Essential (primary) hypertension Status: Chronic Assessment and Plan: Continue with metoprolol and lisinopril, Bp is 133/76 continue to watch. (8) Hyperlipidemia: Code(s): E78.5 - Hyperlipidemia, unspecified Status: Chronic Assessment and Plan: Continue with simvastatin. (9) Obesity: Code(s): E66.9 - Obesity, unspecified Status: Acute Assessment and Plan: Adviced to loose weight (10) Hypothyroidism: Code(s): E03.9 - Hypothyroidism, unspecified Status: Acute Assessment and Plan: Continue with levothyroxine (11) CVA (cerebral vascular accident): Code(s): I63.9 - Cerebral infarction, unspecified Status: Chronic Assessment and Plan: Patient has age indeterminate infarction the right parietal occipital region. The patient was started on an aspirin. Neurology consulted. US CAROTIDS and echo ordered. MRI unable to perform due to weight Subjective Date/time seen: 05/06/21 14:39 Interval history: INTERVAL HISTORY: 75-year-old male patient with past medical history of atrial fibrillation. The patient has had edema to his lower extremities for over year. The patient has been lethargic for 4 days. He has had a slurred speech and having difficulty conversing with her. The patient has been complaining of having lower back pain due to laying on the couch frequently. The patient was to weak to walk today therefore the EMS was activated. The patient denied being short of breath however his O2 saturations were noted to be 60% air. The patient was then placed on a non-rebreather. 05/05/2021: Pt is doing better today holding conversation not confused on 4 liters of oxygen. Pt could not have MRI earlier this morning as he was wearing his BIPAP and was too unwell, will postpone until elena AM. Pt is covid is negative cxr shows pneumonia.
[2021-05-06 17:10] LABS: Glucose Point of Care 121 mg/dl (65-105)
[2021-05-06 20:40] LABS: Glucose Point of Care 157 mg/dl (65-105)
[2021-05-07] VITALS (20 sets, daily range): BP systolic 111–138; BP diastolic 58–73; PULSE 49–108; RESP 17–24; TEMP 35.9–37.1; O2SAT 90–97
--- NOTE | 2021-05-07 02:23 | PCRCNOTE ---
pt refusing 0200 nebulizer treatment, stating he would like to rest instead of being woken up.
[2021-05-07 07:43] LABS: Hematocrit 45.1 % (42.0-52.0); Hemoglobin 14.3 g/dL (14.0-18.0); Mean Corpuscular HGB Conc 31.7 g/dl (32-36); Mean Corpuscular Hemoglobin 30.2 pg (26-34); Mean Corpuscular Volume 95.3 fl (80-100); Mean Platelet Volume 10.4 fl (7.4-10.4); Platelet Count Result 189 k/mm3 (150-375); Red Blood Count 4.73 M/mm3 (4.6-6.20); Red Cell Distribution Width 14.9 % (11.5-14.5); White Blood Count 9.3 K/mm3 (4.5-10.0)
[2021-05-07 07:55] LABS: Anion Gap 3 mmol/L (8-16); Blood Urea Nitrogen 28 mg/dL (9-20); Calcium 8.1 mg/dL (8.4-10.2); Carbon Dioxide 37 mmol/L (22-30); Chloride 97 mmol/L (98-107); Estimated CRCL calculation 62 ml/min; Estimated Glomerular Filt Rate 46; Glucose 123 mg/dL (65-110); Potassium 3.8 mmol/L (3.4-5.0); Sodium 137 mmol/L (137-145)
[2021-05-07] MEDS: ENOXAPARIN 40 MG/0.4 ML SYRINGE SUB-Q (08:05)
[2021-05-07] MEDS: ATORVASTATIN 20 MG TABLET PO (08:05)
[2021-05-07] MEDS: ASPIRIN 325 MG ENTERIC TABLET PO (08:05)
[2021-05-07] MEDS: FUROSEMIDE INJ 40 MG/4 ML VIAL IV PUSH ×2 (08:06→21:10)
[2021-05-07] MEDS: IPRATROPIUM BR 0.02% INH SOLN 0.5 MG/2.5 ML VIAL INHALATION ×3 (08:21→22:48)
[2021-05-07] MEDS: ALBUTEROL SULFATE NEB 2.5 MG/0.5 ML INH INHALATION ×3 (08:21→22:47)
--- NOTE | 2021-05-07 08:30 | P.CDI_ITS ---
CDI Query Clarification Request -CHF has been documented -05/06 Echo summary: EF 55-60%, abnormal left ventricular diastolic function -05/04 BNP 2520 -Pt is on Lasix 40mg IV q 12 hrs. Please further clarify type and acuity of CHF: * Systolic *Acute * Diastolic *Chronic * Both Systolic and Diastolic *Acute on Chronic * Unable to determine *Unable to determine <Mireille encinas RN - Last Filed: 05/07/21 08:33> Clarified Diagnosis (1) Acute on chronic combined systolic (congestive) and diastolic (congestive) heart failure: Code(s): I50.43 - Acute on chronic combined systolic (congestive) and diastolic (congestive) heart failure <Mireille Mendoza RN - Last Filed: 05/07/21 08:33> Status: Acute <Mireille Mendoza RN - Last Filed: 05/07/21 08:33> Assessment and Plan: most likely patient has both systolic diastolic congestive heart failure with a mild EF reduction as well as abnormal diastolic dysfunction. <Jose Soler MD - Last Filed: 05/15/21 18:22>
[2021-05-07 08:36] LABS: Glucose Point of Care 117 mg/dl (65-105)
[2021-05-07 12:21] LABS: Glucose Point of Care 149 mg/dl (65-105)
[2021-05-07 16:25] LABS: Glucose Point of Care 107 mg/dl (65-105)
--- NOTE | 2021-05-07 17:35 | P.PNIM_ITS ---
Progress Note: A&P Assessment and Plan (1) Cerebral infarct: Qualifiers: Laterality of affected vessel: unspecified Code(s): I63.9 - Cerebral infarction, unspecified Status: Acute Assessment and Plan: Pt seen by neurology Right parieto-occipital stroke by CTA. With small old infarct in left parietal lobe as well. No aneurysm or significant intracranial arterial stenosis. Echo pending US carotids negative MRI pt could not have due to BMI will have to have MRI outpatient. PT IS ON ASA and STATIN (2) Congestive heart failure: Qualifiers: Heart failure chronicity: acute Code(s): I50.9 - Heart failure, unspecified Status: Acute Assessment and Plan: An echo has been ordered. Continue with IV Lasix. Continue with metoprolol on lisinopril. Monitor BMP (3) Pneumonia: Code(s): J18.9 - Pneumonia, unspecified organism Status: Acute Assessment and Plan: Patient was started on azithromycin Rocephin. Nebulizer treatments. Blood and sputum cultures are pending. (4) Acute respiratory failure with hypoxia and hypercapnia: Code(s): J96.01 - Acute respiratory failure with hypoxia; J96.02 - Acute respiratory failure with hypercapnia Status: Acute Assessment and Plan: Pt was on bipap this morning, pt had abg pt is reduced to 4 liters of oxygen. Pts COVID screening was negative. According to the chest x-ray it could be pulmonary edema versus pneumonia. However the patient's BNP is elevated and he is edematous. Continue with iv lasix and IV rocephin and Azithromycin (5) BPH (benign prostatic hyperplasia): Code(s): N40.0 - Benign prostatic hyperplasia without lower urinary tract symptoms Status: Acute Assessment and Plan: Continue with finasteride (6) Hx of atrial fibrillation, no current medication: Code(s): Z86.79 - Personal history of other diseases of the circulatory system Status: Chronic Assessment and Plan: Continue with metoprolol (7) Hypertension: Code(s): I10 - Essential (primary) hypertension Status: Chronic Assessment and Plan: Continue with metoprolol and lisinopril, Bp is 133/76 continue to watch. (8) Hyperlipidemia: Code(s): E78.5 - Hyperlipidemia, unspecified Status: Chronic Assessment and Plan: Continue with simvastatin. (9) Obesity: Code(s): E66.9 - Obesity, unspecified Status: Acute Assessment and Plan: Adviced to loose weight (10) Hypothyroidism: Code(s): E03.9 - Hypothyroidism, unspecified Status: Acute Assessment and Plan: Continue with levothyroxine (11) CVA (cerebral vascular accident): Code(s): I63.9 - Cerebral infarction, unspecified Status: Chronic Assessment and Plan: Patient has age indeterminate infarction the right parietal occipital region. The patient was started on an aspirin. Neurology consulted. US CAROTIDS and echo ordered. MRI unable to perform due to weight Subjective Date/time seen: 05/07/21 17:35 Interval history: INTERVAL HISTORY: 75-year-old male patient with past medical history of atrial fibrillation. The patient has had edema to his lower extremities for over year. The patient has been lethargic for 4 days. He has had a slurred speech and having difficulty conversing with her. The patient has been complaining of having lower back pain due to laying on the couch frequently. The patient was to weak to walk today therefore the EMS was activated. The patient denied being short of breath
--- NOTE | 2021-05-07 18:17 | PC.NURSE ---
This patient, Evan Wright Jr., was transferred to [[id number] ] on 05/07/21 at 1810. Personal belongings sent with patient. Report given to []. Appropriate documentation sent with patient.
[2021-05-07] MEDS: APIXABAN 5 MG TABLET PO (21:11)
[2021-05-07] MEDS: METOPROLOL TARTRATE 50 MG TAB PO (21:14)
[2021-05-07 22:46] LABS: Glucose Point of Care 149 mg/dl (65-105)
[2021-05-08] VITALS (8 sets, daily range): PULSE 83–105; RESP 20; O2SAT 93
[2021-05-08] MEDS: IPRATROPIUM BR 0.02% INH SOLN 0.5 MG/2.5 ML VIAL INHALATION (03:03)
[2021-05-08] MEDS: ALBUTEROL SULFATE NEB 2.5 MG/0.5 ML INH INHALATION (03:03)
[2021-05-08] MEDS: LEVOTHYROXINE SODIUM 112 MCG TABLET PO (06:02)
[2021-05-08 07:54] LABS: Glucose Point of Care 116 mg/dl (65-105)
[2021-05-08] MEDS: ATORVASTATIN 20 MG TABLET PO (08:21)
[2021-05-08] MEDS: FUROSEMIDE INJ 40 MG/4 ML VIAL IV PUSH (08:21)
[2021-05-08] MEDS: FINASTERIDE 5 MG TABLET PO (08:21)
[2021-05-08] MEDS: METOPROLOL TARTRATE 50 MG TAB PO (08:21)
[2021-05-08] MEDS: APIXABAN 5 MG TABLET PO (08:21)
--- NOTE | 2021-05-08 10:08 | PM.DS ---
DS: Admitting Diagnosis Discharge Date 05/08/2021 Admitting Diagnosis Confusion hypoxic DS: Discharge Diagnosis Discharge Diagnosis (1) Acute on chronic combined systolic (congestive) and diastolic (congestive) heart failure: Code(s): I50.43 - Acute on chronic combined systolic (congestive) and diastolic (congestive) heart failure Status: Acute Assessment and Plan: most likely patient has both systolic diastolic congestive heart failure with a mild EF reduction as well as abnormal diastolic dysfunction. DS: Summary Hospital Course Reason for hospitalization: this is a 75-year-old male patient with past medical history of atrial fibrillation. The patient has had edema to his lower extremities for over year. The patient has been lethargic for 4 days. He has had a slurred speech and having difficulty conversing with her. The patient has been complaining of having lower back pain due to laying on the couch frequently. The patient was to weak to walk today therefore the EMS was activated. The patient denied being short of breath however his O2 saturations were noted to be 60% air. The patient was then placed on a non-rebreather. Patient is answering some questions for me when I entered the room. The patient currently on a BiPAP machine with settings 18/6 50% FiO2 and a rate of 24. His white count is 12.2. ABG pH 7.216, pCO2 77.5, PO2 77.5, and O2 saturation 92.2% his BNP is reported as 2520. Patient's right leg is red and excoriated. He has 4+ edema to the right lower extremity and 3+ pitting edema to the left. Patient's right leg is blanchable. Patient's venous Doppler to the right lower extremity shows no evidence of deep vein thrombosis. He has a right popliteal cyst. Chest x-ray was read as airspace opacities in the mid lower lung zones consistent with pulmonary edema versus pneumonia. Cardiomegaly. Head CT was read as the following 1. Age-indeterminate infarct in right parietal occipital region. 2. Small old infarct in left parietal lobe. 3. Moderate nonspecific cerebral white matter disease, which likely represents chronic small vessel ischemic disease. A consult was placed for neurology. The patient was started on azithromycin Rocephin as well as a dose of IV Lasix in the emergency room. Blood cultures are pending. It is difficult to get a history from the patient at this time due to him being on a BiPAP. The patient appears to be more awake and is moving all extremities. The patient is negative for COVID. However it is difficult to understand with the patient is staying with the BiPAP on. The patient is being admitted to inpatient services on the date of 05/04/2021. Chief Complaint: Confusion hypoxic Hospital Course: patient with stroke requiring anticoagulation with Eliquis or Xarelto, patient is refusing it as he as history or hematuria with Xarelto, patient understands he has high risk of CVA. patient will continue a aspirin, statin and will follow up with his primary care as soon as possible, patient is instructed if any symptoms redevelop to go to nearest ER. (1) Cerebral infarct: Qualifiers: Laterality of affected vessel: unspecified Code(s): I63.9 - Cerebral infarction, unspecified Status: Acute Assessment and Plan: Pt seen by neurology Right parieto-occipital stroke by CTA. With small old infarct in left parietal lobe as well. No aneurysm or significant intracranial arterial stenosis. Echo pending US carotids negative MRI pt could not have due to BMI will have to have MRI outpatient. PT IS ON ASA and STATIN (2) Congestive heart failure: Qualifiers: Heart failure chronicity: acute Code(s): I50.9 - Heart failure, unspecified Status: Acute Assessment and Plan: An echo has been ordered. Continue with IV Lasix. Continue with metoprolol on lisinopril. Monitor BMP (3) Pneumonia: Code(s): J18.9 - Pneumonia, unspecified organism
== END 2021-05-08 10:42 | disposition home or self-care (01) | DRG 189 ==
LOC: ANHED 19:03 → ANHIMU 05-05 03:44 → ANH2MED 05-07 19:56 → ANHIMU 05-09 15:01
PROVIDERS: Family Medicine; Nurse Practitioner; Admitting Provider Internal Medicine; Emergency Provider General Practice; PCP Internal Medicine; Visit Provider Family Medicine
DX: J96.01 Acute respiratory failure with hypoxia (principal); I63.9 Cerebral infarction, unspecified; J18.9 Pneumonia, unspecified organism; I50.43 Acute on chronic combined systolic (congestive) and diastolic (congestive) heart failure; Z68.41 Body mass index [BMI] 40.0-44.9, adult; E66.9 Obesity, unspecified; J96.02 Acute respiratory failure with hypercapnia; R47.81 Slurred speech; Z20.822 Contact with and (suspected) exposure to COVID-19; I11.0 Hypertensive heart disease with heart failure; G47.33 Obstructive sleep apnea (adult) (pediatric); E78.5 Hyperlipidemia, unspecified; E03.9 Hypothyroidism, unspecified; N40.0 Benign prostatic hyperplasia without lower urinary tract symptoms; Z79.82 Long term (current) use of aspirin; Z79.899 Other long term (current) drug therapy; Z85.828 Personal history of other malignant neoplasm of skin; Z86.73 Personal history of transient ischemic attack (TIA), and cerebral infarction without residual deficits; Z86.79 Personal history of other diseases of the circulatory system; Z87.891 Personal history of nicotine dependence
CPT/HCPCS: 36415; 36600; 70450; 70496; 70498; 71045; 80048; 80053; 81001; 82375; 82728; 82805; 82948; 83050; 83605; 83615; 83690; 83735; 83880; 84439; 84443; 84480; 84484; 85025; 85027; 85610; 85730; 87040; 93005; 93880; 93971; 94002; 94003; 94640; 96365; 96367; 96375; 97110; 97161; 97165; 97530; 97535; 99291; A9270; C8929; C9803; J0456; J0696; J1650; J1940; Q9957; Q9967; U0003; U0005

== ENCOUNTER 2021-05-08 15:08 | Emergency (ER) | payer MEDICARE, SELFPAY ==
[2021-05-08] VITALS (8 sets, daily range): BP systolic 126–131; BP diastolic 78–89; PULSE 65–95; RESP 14–25; TEMP 36.2–36.7; O2SAT 85–98
--- NOTE | ~2021-05-08 | XR_ITS ---
EXAMINATION: XR chest 2V DATE: 05/08/2021 15:42 INDICATION: Shortness of breath and hypoxia. TECHNIQUE: PA and lateral views of the chest were obtained. COMPARISON: Chest radiograph dated 05/06/2021 FINDINGS: Mild opacities in the bilateral dependent lower lung zones. No pneumothorax or pleural effusion. Card iomegaly. Old healed right sixth and seventh rib fractures. IMPRESSION: 1. Mild opacities in the in bilateral dependent lower lung zones which could represent mild pulmonary edema, atelectasis, pneumonia or some combination thereof. 2. Cardiomegaly. Reviewed, dictated and finalized at location A. IFIED PHYSICAL THERAPIST ASSISTANT IMPRESSION: 1. Mild opacities in the in bilateral dependent lower lung zones which could re present mild pulmonary edema, atelectasis, pneumonia or some combination thereo f. 2. Cardiomegaly.
--- NOTE | 2021-05-08 15:28 | ECG_ITS ---
Measurements Intervals [place] Rate: 92 P: CA: 0 QRS: 47 QRSD: 109 T: 44 QT: 386 QTc: 479 Interpretive Statements ATRIAL FIBRILLATION VENTRICULAR BIGEMINY MINIMAL Q WAVES- INFERIOR LEADS BASELINE ARTIFACT- I, II, III, AVR, AVL, AVF, V2-V6 ABNORMAL ECG Electronically Signed On 05-08-2021 16:16:32 [employer]OTHES DESIGNER by Thang Guerra D.O.
[2021-05-08] MEDS: ALBUTEROL SULFATE NEB 2.5 MG/0.5 ML INH INHALATION (15:51)
[2021-05-08 15:56] LABS: Basophils Percent Auto 0.4 % (0.2-1.2); Eosinophils Absolute Auto 0.4 K/mm3 (0-0.3); Eosinophils Percent Auto 3.7 % (0-4.4); Hematocrit 50.6 % (42.0-52.0); Immature Granulocyte Absolute 0.04 K/mm3 (0.00-0.031); Immature Granulocyte Percent A 0.4 % (0-0.5); Lymphocytes Absolute Auto 2.12 K/mm3 (0.9-3.2); Lymphocytes Percent Auto 21.7 % (18.3-44.2); Mean Corpuscular HGB Conc 31.6 g/dl (32-36); Mean Corpuscular Hemoglobin 29.9 pg (26-34); Mean Corpuscular Volume 94.4 fl (80-100); Mean Platelet Volume 10.3 fl (7.4-10.4); Monocytes Absolute Auto 1.3 K/mm3 (0.1-0.6); Monocytes Percent Auto 13.2 % (2.6-8.5); Neutrophils Absolute Auto 5.9 K/mm3 (1.3-6.7); Neutrophils Percent Auto 60.6 % (45.5-73.1); Platelet Count Result 206 k/mm3 (150-375); Red Blood Count 5.36 M/mm3 (4.6-6.20); Red Cell Distribution Width 14.7 % (11.5-14.5); White Blood Count 9.8 K/mm3 (4.5-10.0)
[2021-05-08 16:06] LABS: Alanine Aminotransferase 28 U/L (4-50); Albumin Level 4.4 g/dL (3.5-5.1); Alkaline Phosphatase 73 U/L (38-126); Anion Gap 4 mmol/L (8-16); Aspartate Amino Transferase 45 U/L (17-59); Blood Urea Nitrogen 27 mg/dL (9-20); Calcium 8.7 mg/dL (8.4-10.2); Carbon Dioxide 39 mmol/L (22-30); Chloride 96 mmol/L (98-107); Estimated CRCL calculation 61 ml/min; Estimated Glomerular Filt Rate 46; Glucose 161 mg/dL (65-110); INR 1.3; Potassium 3.9 mmol/L (3.4-5.0); Prothrombin Time 16.2 Seconds (11.1-14.7); Sodium 139 mmol/L (137-145)
[2021-05-08 16:07] LABS: Partial Thromboplastin Time 35.4 SECONDS (22.3-36.8)
--- NOTE | 2021-05-08 16:13 | ED.SOB ---
HPI - SOB/Dyspnea General Chief Complaint: Shortness of Breath/Dyspnea Stated Complaint: low O2 Time Seen by Provider: 05/08/21 15:15 History of Present Illness HPI Narrative: Patient is a 75-year-old male who presents ER with low oxygen saturation. Patient was discharged from the hospital today after being treated for CVA and pneumonia and CHF. He was started on doxycycline for the pneumonia and also Eliquis. While in the hospital he had been oxygen dependent and had not been oxygen dependent prior to being hospitalized. He was discharged home without oxygen and his pulse oximeter was in the 70s at home according to light. No new shortness of breath or chest pain. No new cough or fevers or chills. No chest pain. Related Data Home Medications Medication Instructions Recorded Confirmed aspirin 81 mg tablet,delayed 81 mg PO DAILY 03/16/19 05/05/21 release finasteride 5 mg tablet 5 mg PO DAILY 03/16/19 05/05/21 Allergies Allergy/AdvReac Type Severity Reaction Status Date / Time No Known Allergies Allergy Verified 05/04/21 16:28 Review of Systems Review of Systems: All systems reviewed & are unremarkable except as noted in HPI and below Constitutional: Constitutional: Denies chills, Denies fever(s) and Denies weakness ENT: Denies nasal congestion and Denies sore throat Cardiovascular: Cardiovascular: Denies chest pain, Denies rapid heart rate and Denies radiating jaw, neck or arm pain Respiratory: Respiratory: Denies cough, Denies dyspnea and Reports wheezing Gastrointestinal: Gastrointestinal: Denies abdominal pain, Denies nausea and Denies vomiting PMFSH Past Medical History Medical History BPH (benign prostatic hyperplasia) CVA (cerebral vascular accident) Hx of atrial fibrillation, no current medication Hyperlipidemia Hypertension Hypothyroidism Obesity Surgical History Surgical History History of removal of pigmented skin lesion S/P TURP Family History Family History Sibling Patient's sister is in good health Family history of lung cancer, Onset Age: 62 Family history of malignant neoplasm of breast Father Family history of primary malignant neoplasm of liver Social History Social History Social History: The patient lives with his lucille. He states that he has three children . 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 He used to drink heavily when he was younger. Code staus : full code Smoking packs per day: 1 Smoking cigarettes per day: 20.0 Years smoked: 40 Smoking pack-years: 40.00 Smoking status: Former smoker Second hand tobacco smoke exposure: No Smoking end date: 04/06/14 Alcohol intake: never Substance use: never Spiritual care concerns: No Exam Narrative: GENERAL: Well-appearing, well-nourished, and in no acute distress. HEAD: Normocephalic, atraumatic. ENT: Mucous membranes moist. CHEST: Bibasilar wheezing. No respiratory distress. HEART: Regular rate and rhythm. Normal peripheral pulses. ABDOMEN: Soft, nontender, nondistended. EXTREMITIES: Normal range of motion. Normal strength.. SKIN: Warm, dry, no rash. NEURO: Alert and oriented x3. PSYCH: Normal mood and affect. Course Course Emergency Course: Patient requires 2 L of oxygen at home at rest. Evaluated by respiratory therapy. Set up for home oxygen and is being given a tank to take home. He has been educated on its use and verbalized understanding. Vital Signs Vital signs: Vital Signs Temperature 97.2 F L 05/08/21 15:18 Pulse Rate 89 05/08/21 15:18 Respiratory Rate 14 05/08/21 15:18 Blood Pressure 126/89 05/08/21 15:18 Pulse Oximetry 98 05/08/21 15:18 Temperature 97.2 F L 05/08/21 15:18 Pulse Rate 75
[2021-05-08 16:19] LABS: NT Pro B Type Natriuretic Pept 1350 pg/mL (5-100)
[2021-05-08 16:20] LABS: Troponin I < 0.012 ng/mL (0.000-0.034)
--- NOTE | 2021-05-08 17:53 | PCRCNOTE ---
PT resting on room air desated to 85 after sitting on RA after 3 min. Added oxygen to 2 LPM and pt sated 94. With activity pt needs 2 lpm as well. PT requires oxygen at home during rest and activity.
--- NOTE | 2021-05-08 18:06 | HOMEO2EVAL ---
Evaluation was performed at [facility] Home Oxygen Evaluation RC: Home Oxygen (O2) Evaluation Start: 05/08/21 17:52 Freq: Status: Active Protocol: RPE Activity Type Activity Date Activity User E-Sign Co-Sign Detail Recorded Client Recorded Date Recorded By Document 05/08/21 17:52 ELM [email or web address] 05/08/21 17:53 ELM Document 05/08/21 17:53 ELM [email or web address] 05/08/21 17:53 ELM 05/08/21 05/08/21 17:52 17:53 Home O2 Evaluation Test Phase Resting Exercise Oxygen Delivery Room Air Room Air Pulse Oximetry (90-100 %) 85 L 85 L Pulse Rate (60-100 beats/min) 88 Activity Tolerance Good Good Home Oxygen Evaluation Comments Pt requires 2 LPM at home for rest and activity Treatment Charges O2 Evaluation - Inpatient
--- NOTE | 2021-05-08 18:13 | PCRCNOTE ---
OXYGEN SET UP WITH [place] HOME PATIENT, TANK IN THE ROOM. INFO FAXED AND CONFIRMED O2 DELIVERY WITH HOTBED TRANSFER OPERATOR.
== END 2021-05-08 18:45 | disposition home or self-care (01) ==
PROVIDERS: Emergency Provider Emergency Medicine; PCP Internal Medicine
DX: R06.02 Shortness of breath (principal); Z99.81 Dependence on supplemental oxygen; N40.0 Benign prostatic hyperplasia without lower urinary tract symptoms; E78.5 Hyperlipidemia, unspecified; I10 Essential (primary) hypertension; E03.9 Hypothyroidism, unspecified
CPT/HCPCS: 36415; 71046; 80053; 83880; 84484; 85025; 85610; 85730; 93005; 94640; 99284

== ENCOUNTER 2021-08-01 01:05 | Day surgery (SDC) | payer MEDICARE, SELFPAY ==
[2021-07-22 12:31] VITALS: BMI 41.3
--- NOTE | 2021-08-01 08:02 | WPDANESEPPF ---
Anes - Initial Pre Proc Eval Procedure: Operation Date: 08/01/21 11:00 Proposed Procedures p Colonoscopy - Ant Calero MD Date/Time: 08/01/21 08:02 Surgeon: Ant Calero MD Pre Op Diagnosis: positive cologuard Patient Data Age: 75 Gender: M Height: 1.91 m Weight: 150 kg Allergies Allergy/AdvReac Type Severity Reaction Status Date / Time No Known Allergies Allergy Verified 08/01/21 10:04 Home Medications Medication Instructions Recorded Confirmed Type aspirin 81 mg tablet,delayed 81 mg PO DAILY 03/16/19 07/22/21 History release finasteride 5 mg tablet 5 mg PO DAILY 03/16/19 07/22/21 History albuterol sulfate 2 puff INHALATION QID PRN #8 gm 05/08/21 07/22/21 Rx atorvastatin 40 mg tablet 40 mg PO DAILY #90 tablet 05/10/21 07/22/21 Rx levothyroxine 112 mcg tablet 112 mcg PO DAILY #90 tablet 05/12/21 07/22/21 Rx metoprolol tartrate 50 mg tablet 50 mg PO BID #180 tablet 06/09/21 07/22/21 Rx felodipine 5 mg tablet,extended 5 mg PO DAILY #90 tablet 06/10/21 07/22/21 Rx release 24 hr lisinopril 40 mg tablet 40 mg PO DAILY #90 tablet 06/11/21 07/22/21 Rx aspirin 325 mg tablet 325 mg PO DAILY 06/18/21 07/22/21 History betamethasone dipropionate 0.05 % 1 applic TOPICAL BID PRN #60 ml 06/18/21 07/22/21 Rx lotion triamcinolone acetonide 0.1 % 1 applic TOPICAL BID #30 g 06/18/21 07/22/21 Rx topical cream Other studies: Admit Date: 05/04/2021 Staff Ordering Physician: Chloe Hunt NP Starting Gate Driver: Julianna Sun RDCS Attending Provider: Jose G Bah MD Referring Physician: Gilbert MAN; Exam Type: CA echo dop color flow w con Study Info Indications - chf Complete two-dimensional, color flow and Doppler transthoracic echocardiogram is performed. Summary 1. Complete two-dimensional, color flow and Doppler transthoracic echocardiogram is performed. 2. Left ventricular chamber dimension is normal. 3. Definity contrast administered improved wall motion interpretation. 4. Left ventricular systolic function is normal, estimated at 55-60%. 5. There is mildly increased left ventricular wall thickness. 6. Left ventricular septal wall motion is abnormal with septal motion related to bundle branch block. 7. The left ventricular diastolic function is abnormal. 8. E/e' 12 is mildly elevated. 9. Right ventricular systolic function is reduced based on an abnormal TAPSE 1.2 cm. 10. Left atrial chamber dimension is mildly enlarged. 11. The aortic valve is not well visualized. Trileaflet aortic valve leaflets. 12. There is mild aortic valve sclerosis. 13. The mitral valve has mildly calcified annulus. 14. No pulmonary hypertension, estimated pulmonary arterial systolic pressure is 34 mmHg. 15. The aortic root size at the sinus of Valsalva is borderline dilated. Aortic annular calcification. Patient hx anesthesia problems: none Family hx anesthesia problems: none Results Review: All pre-operative results and documents have been reviewed as part of the pre-operative evaluation. [facility] Past Medical History Medical History (Updated 08/01/21 @ 10:36 by Ant Calero MD) Acute on chronic combined systolic (congestive) and diastolic (congestive) heart failure BPH (benign prostatic hyperplasia) Congestive heart failure CVA (cerebral vascular accident) Hx of atrial fibrillation, no current medication Hyperlipidemia Hypertension Hypothyroidism Obesity Surgical History Surgical History History of removal of pigmented skin lesion S/P TURP Family History Family History Sibling Patient's sister is in good health Family history of lung cancer, Onset Age: 62 Family history of malignant neoplasm of breast Father Family history of primary malignant neoplasm of liver Social Hist
[2021-08-01 10:07] VITALS: BP 96/68; PULSE 70; RESP 18; TEMP 36.1; O2SAT 94
[2021-08-01] MEDS: LACTATED RINGERS 1,000 ML 150 ML IV CONT (10:14)
--- NOTE | 2021-08-01 10:34 | WPDGICN ---
Assessment and Plan Assessment and plan (1) Positive colorectal cancer screening using Cologuard test: Code(s): R19.5 - Other fecal abnormalities Status: Acute Assessment and Plan: Patient found to have Cologuard test which was positive recently. This suggest higher than average risk of colon polyps for this reason colonoscopy will be performed. Further recommendations will be given after endoscopy. (2) Family history of colonic polyps: Code(s): Z83.71 - Family history of colonic polyps Status: Acute Assessment and Plan: Patient has 2 brothers who have had colon polyps. Plan is for surveillance colonoscopy at this time because of this finding. GI Consult Note Consult date/time: 08/01/21 10:34 HPI: Evan Wright Jr. is a 75 year old male Presents for screening colonoscopy. Patient's current weight appetite and bowel movements are normal. Patient denies abdominal pain. He has had no bleeding. Family history is significant for 2 brothers that have had colon polyps. Patient has had Cologuard test on several occasions previously negative recent Cologuard test was found to be positive. For this reason he presents today for screening colonoscopy. 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 He has been treated for underlying CHF. He does have a history of CVA for which she is essentially recovered. Patient presents today for neoplasia screening colonoscopy. Review of Systems Review of Systems: All systems reviewed & are unremarkable except as noted in HPI and below [facility] [place] Past Medical History Medical History (Updated 08/01/21 @ 10:36 by Ant Calero MD) Acute on chronic combined systolic (congestive) and diastolic (congestive) heart failure BPH (benign prostatic hyperplasia) Congestive heart failure CVA (cerebral vascular accident) Hx of atrial fibrillation, no current medication Hyperlipidemia Hypertension Hypothyroidism Obesity Surgical History Surgical History History of removal of pigmented skin lesion S/P TURP Family History Family History Sibling Patient's sister is in good health Family history of lung cancer, Onset Age: 62 Family history of malignant neoplasm of breast Father Family history of primary malignant neoplasm of liver Social History Social History Social History: The patient lives with his lucille. He states that he has three children . 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 He used to drink heavily when he was younger. Code staus : full code Smoking packs per day: 1 Smoking cigarettes per day: 20.0 Years smoked: 55 Smoking pack-years: 55.00 Smoking status: Former smoker Tobacco type: cigarettes Second hand tobacco smoke exposure: No Smoking end date: 04/06/14 Alcohol intake: former Substance use: never Substance use type: does not use Living arrangements: with family Spiritual care concerns: No Meds Home Medications and Allergies Home Medications Medication Instructions Recorded Confirmed Type aspirin 81 mg tablet,delayed 81 mg PO DAILY 03/16/19 07/22/21 History release finasteride 5 mg tablet 5 mg PO DAILY 03/16/19 07/22/21 History albuterol sulfate 2 puff INHALATION QID PRN #8 gm 05/08/21 07/22/21 Rx atorvastatin 40 mg tablet 40 mg PO DAILY #90 tablet 05/10/21 07/22/21 Rx levothyroxine 112 mcg tablet 112 mcg PO DAILY #90 tablet 05/12/21 07/22/21 Rx metoprolol tartrate 50 mg tablet 50 mg PO BID #180 tablet 06/09/21 07/22/21 Rx felodipine 5 mg tablet,extended 5 mg PO DAILY #90 tablet 06/10/21 07/22/21 Rx release 24 hr lisinopril 40 mg tablet 40 mg PO DAILY #90 tablet 06/11/21 07/22/21 Rx aspirin 325 mg tab
[2021-08-01 11:48] VITALS: BP 103/66; PULSE 62; RESP 22; O2SAT 98
[2021-08-01 11:58] VITALS: BP 106/66; PULSE 72; RESP 16; O2SAT 97
[2021-08-01 12:08] VITALS: BP 120/71; PULSE 63; RESP 15; O2SAT 98
== END 2021-08-01 12:24 | disposition home or self-care (01) ==
PROVIDERS: PCP Internal Medicine; Visit Provider Internal Medicine Gastroenterology
PROC: 0DJD8ZZ Inspection of Lower Intestinal Tract, Via Natural or Artificial Opening Endoscopic (ICD-10-PCS; CPT 45378; principal; 2021-08-01 11:00)
DX: R19.5 Other fecal abnormalities (principal); D12.5 Benign neoplasm of sigmoid colon; Z83.71 Family history of colonic polyps; I11.0 Hypertensive heart disease with heart failure; I50.43 Acute on chronic combined systolic (congestive) and diastolic (congestive) heart failure; E78.5 Hyperlipidemia, unspecified; E03.9 Hypothyroidism, unspecified; N40.0 Benign prostatic hyperplasia without lower urinary tract symptoms; Z86.73 Personal history of transient ischemic attack (TIA), and cerebral infarction without residual deficits; E66.01 Morbid (severe) obesity due to excess calories; Z68.41 Body mass index [BMI] 40.0-44.9, adult; Z87.891 Personal history of nicotine dependence; Z79.82 Long term (current) use of aspirin; Z79.51 Long term (current) use of inhaled steroids
CPT/HCPCS: 45385; 88305; J2704; J7120

== ENCOUNTER 2021-09-09 08:04 | Outpatient (CLI) | payer MEDICARE, SELFPAY ==
--- NOTE | 2021-10-03 09:34 | WPDSLEEPSTUD ---
Sleep Study Date of Study: 09/09/21 Ordering Provider: Sina Etienne MD Interpreting Physician: Varsha Paz MD Sleep Study Type: Split Polysomnogram Height: 1.91 m Weight: 148.778 kg Body Mass Index: 41.0 Neck Circumference (inches): 18 [place]: 10 Reason for Sleep Study Hypersomnolence Sleep History Evan Juan Jr is a 75-year-old man who was hospitalized in April with a stroke, congestive heart failure and pneumonia. Since then he has been on oxygen around the clock. Since starting oxygen he has been able to sleep more comfortably and does not wake up as much during the night. He does not awaken from sleep feeling short of breath, does not awaken at night with heartburn, belching or coughing. He does not snore and does not snore loudly enough that others complain about it. He does not have trouble sleeping with a cold. He does not wake up gasping for breath at night. He does not have breathing problems at night observed by others. He frequently sweats excessively at night. He does not notice his heart pounding or beating irregularly at night. He constantly falls asleep during the day. He occasionally falls asleep involuntarily. He does not fall asleep while driving. He does not have loss of muscle tone with strong emotion. He does not have daytime difficulties due to excessive sleepiness. He does not feel paralyzed on waking or falling asleep. He does not have vivid dreamlike scenes upon awakening or falling asleep. He does not feel afraid to go to sleep. He does not have nightmares. He does not have dream recall. He does not have racing thoughts. He denies feelings of sadness, depression and anxiety. He does not have muscular tension. He occasionally notices parts of his body jerking. He rarely kicks at night. He does not have crawling aching feelings in his legs. He does not have any kind of leg pain at night. He does not have morning jaw pain. He does not grind his teeth during sleep. He is not bothered by pain during the day or awakened by pain during the night. He does not wake up feeling stiff in the morning. He frequently wakes up with sore achy muscles. He does not wake up with pain in the neck and spine. Normal bedtime is between 9:00 p.m. and 9:30 p.m. taking 5 minutes to fall asleep, waking twice at night to urinate. He wakes in the morning between 430 and 5:00 a.m.. Weekend schedule is the same. He takes naps in the afternoon or evening. A short nap 10 or 15 minutes in duration may be refreshing. He feels good on waking. He feels better in the afternoon compared to other times of day Habits: Stop tobacco 5 years ago. Caffeine 6 cups a day. No alcohol or recreational drugs. [facility] Past Medical History Medical History Acute on chronic combined systolic (congestive) and diastolic (congestive) heart failure BPH (benign prostatic hyperplasia) Congestive heart failure CVA (cerebral vascular accident) Hx of atrial fibrillation, no current medication Hyperlipidemia Hypertension Hypothyroidism Obesity Surgical History Surgical History History of removal of pigmented skin lesion S/P TURP Family History Family History Sibling Patient's sister is in good health Family history of lung cancer, Onset Age: 62 Family history of malignant neoplasm of breast Father Family history of primary malignant neoplasm of liver Social History Social History (Updated 10/03/21 @ 09:21 by Karen Martinez [facility]) Social History: The patient lives with his lucille. He states that he has three children . 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 He used to drink heavily when he was younger. Code staus : full code Smoking packs per day: 1 Smoking cigarettes per day: 20.0 Years sm
[2021-10-03 10:16] VITALS: BMI 41.0
== END 2021-09-10 05:42 | disposition home or self-care (01) ==
PROVIDERS: PCP Internal Medicine; Visit Provider Internal Medicine Pulmonary Disease
DX: G47.10 Hypersomnia, unspecified (principal); J96.11 Chronic respiratory failure with hypoxia; J96.12 Chronic respiratory failure with hypercapnia
CPT/HCPCS: 95811

== ENCOUNTER 2021-10-01 13:55 | Outpatient (CLI) | payer MEDICARE, SELFPAY ==
--- NOTE | ~2021-10-01 | XR_ITS ---
XR chest 2V DATE: 10/01/2021 14:28 INDICATION: Hypoxia. Chronic respiratory failure. TECHNIQUE: AP and lateral views COMPARISON: May 08, 2021 PA and lateral chest FINDINGS: Mild cardiomegaly. Is aortic calcification, ectasia and tortuosity. There is pulmonary vascular congestion. Small bilateral pleural effusions. Mild central and lower lung zone infiltrates and/or atelectasis. Old healed posterolateral right sixth, seventh and eighth rib fractures. Degenerative spurring of the thoracic spine. IMPRESSION: Mild cardiomegaly, mild congestive changes, including small pleural effusions Bilateral central and to a greater extent lower lung infiltrate and/or atelectasis, most prominent at the right lung base; this may be due to pulmonary edema. Superimposed pneumonia is not excluded. Reviewed, dictated and finalized at location B. IMPRESSION: Mild cardiomegaly, mild congestive changes, including small pleural effusions Bilateral central and to a greater extent lower lung infiltrate and/or atelecta sis, most prominent at the right lung base; this may be due to pulmonary edema. Superimposed pneumonia is not excluded.
[2021-10-01 14:30] VITALS: PULSE 69; O2SAT 86
[2021-10-01 14:32] VITALS: O2SAT 87
[2021-10-01 14:33] VITALS: O2SAT 92
[2021-10-01 14:35] VITALS: PULSE 106; O2SAT 89
[2021-10-01 14:45] VITALS: PULSE 64; O2SAT 94
--- NOTE | 2021-10-01 15:30 | HOMEO2EVAL ---
Evaluation was performed at [facility] Home Oxygen Evaluation RC: Home Oxygen (O2) Evaluation Start: 10/01/21 15:26 Freq: Status: Active Protocol: RPE Activity Type Activity Date Activity User E-sign Co-sign Detail Recorded Client Recorded Date Recorded By Document 10/01/21 14:30 ELENI [email or web address] 10/01/21 15:30 ELENI Document 10/01/21 14:32 ELENI [email or web address] 10/01/21 15:30 ELENI Document 10/01/21 14:33 ELENI [email or web address] 10/01/21 15:30 ELENI Document 10/01/21 14:35 ELENI [email or web address] 10/01/21 15:30 ELENI Document 10/01/21 14:45 ELENI [email or web address] 10/01/21 15:30 ELENI 10/01/21 10/01/21 10/01/21 14:30 14:32 14:33 Home O2 Evaluation Test Phase Resting Resting Resting Oxygen Delivery Room Air Nasal Cannula Nasal Cannula Oxygen Flow Rate (L/min) 1 2 Pulse Oximetry (90-100 %) 86 L 87 L 92 Pulse Rate (60-100 beats/min) 69 Activity Tolerance Rating of Perceived Dyspnea (PD) Ambulation Distance (feet) Ambulation Distance (meters) Home Oxygen Evaluation Comments Treatment Charges O2 Evaluation - Outpatient 10/01/21 10/01/21 14:35 14:45 Home O2 Evaluation Test Phase Exercise Resting Oxygen Delivery Nasal Cannula Nasal Cannula Oxygen Flow Rate (L/min) 2 2 Pulse Oximetry (90-100 %) 89 L 94 Pulse Rate (60-100 beats/min) 106 H 64 Activity Tolerance Good Rating of Perceived Dyspnea (PD) +2 Mild, Some Difficulty, Noticeable to the Observer Ambulation Distance (feet) 100 Ambulation Distance (meters) 30.47 Home Oxygen Evaluation Comments PT REQUIRES 2 AT REST AND WITH ACTIVITY Treatment Charges
--- NOTE | 2021-10-02 07:13 | WPDPFTINT ---
PFT Procedure Performed PFT Procedure Performed Spirometry with Pre/Post Bronchodilator Plethysmography (Lung Vol) Diffusing Cap (DLCO) Flow Vol Loop PFT Interpretation This is a pulmonary function test with pre and post-bronchodilator spirometry, plethysmography and diffusing capacity. The test was performed and results interpreted in accordance with the 2019 and 2005 ATS/ERS Task Force guidelines respectively using the Global Lung Function Initiative-2012 reference equations. Patient demonstrated good effort and cooperation. Reproducibility criteria were met. The quality of the pre bronchodilator spirometry maneuver was Grade B and post bronchodilator spirometry maneuver was Grade A. Findings: Spirometry: There is decreased maximal expiratory airflow at low lung volumes with concave expiratory flow tracing. The contour the inspiratory flow tracing is normal. The pre bronchodilator FVC is 2.80 L, 58% predicted. The pre bronchodilator FEV1 is 1.90 L, 53% predicted. The pre bronchodilator FEV1: FVC ratio is 68%. The post bronchodilator FVC is 2.88 L, representing a 3% increase. The post bronchodilator FEV1 is 2.02 L, representing a 6% increase. The post bronchodilator FEV1: FVC ratio 70%. Plethysmography: The total lung capacity is 3.76 L, 46% predicted. The functional residual capacity is 1.29 L, 29% predicted. The residual volume is 0.96 L, 34% predicted. Diffusion capacity: The diffusion capacity unadjusted for hemoglobin and carboxyhemoglobin is 13.2, 49% predicted. The diffusion capacity adjusted for alveolar volume is 4.16, 119% predicted. Impression: There is a combined obstructive and restrictive ventilatory abnormality. There are no guidelines to assign the severity of obstruction and restriction with a combined abnormality. In my opinion, given the mildly concave expiratory flow tracing and minimally decreased FEV1: FVC ratio and moderately severe restrictive abnormality I would state there is a mild obstructive abnormality and a moderately severe restrictive abnormality resulting in a moderately severe decreased FEV1. There is no significant improvement after inhaling a single dose of albuterol. The diffusing capacity unadjusted for hemoglobin and carboxyhemoglobin is moderately decreased and normalizes when adjusted for alveolar volume. There are no prior studies for comparison
== END 2021-10-01 13:56 | disposition home or self-care (01) ==
PROVIDERS: PCP Internal Medicine; Visit Provider Internal Medicine Pulmonary Disease
DX: J96.11 Chronic respiratory failure with hypoxia (principal); J96.12 Chronic respiratory failure with hypercapnia; Z87.891 Personal history of nicotine dependence; I51.7 Cardiomegaly
CPT/HCPCS: 71046; 94060; 94618; 94726; 94729

== ENCOUNTER 2021-10-11 07:22 | Outpatient (CLI) | payer MEDICARE, SELFPAY ==
--- NOTE | ~2021-10-11 | CT_ITS ---
EXAMINATION: CT lung screening DATE: 10/11/2021 07:57 INDICATION: Personal history of nicotine dependence, prior smoker with 55 pack year history TECHNIQUE: Computed tomography (CT) of the chest was performed without intravenous contrast. The dose -length product (DLP) was 596.90 mGy-cm. Automated exposure control and iterative reconstruction tech Yunno were employed. COMPARISON: 09/25/2013 FINDINGS: There is mild emphysema. There is a 2 mm nodule of the right upper lobe. There is mild depe ndent atelectasis. The lungs are free of focal airspace opacities. Calcified pleural plaques are note d which can be seen in the setting of prior asbestos exposure. There is a small left pleural effusion of unclear etiology. No pathologically enlarged thoracic lymph nodes are identified. The heart size is normal. Calcified coronary artery atherosclerosis is noted. There are healed right-sided rib fract ures. There are bridging osteophytes at multiple levels in the spine, consistent with diffuse idiopat hic skeletal hyperostosis (DISH). IMPRESSION: 1. Lung-RADS category 2S: Benign appearance or behavior. Continue annual screening with noncontrast l ow-dose chest CT in 12 months. 2. Small left pleural effusion of unclear etiology. Reviewed, dictated and finalized at location B. IMPRESSION: 1. Lung-RADS category 2S: Benign appearance or behavior. Continue annual screen ing with noncontrast low-dose chest CT in 12 months. 2. Small left pleural effusion of unclear etiology.
== END 2021-10-11 07:23 | disposition home or self-care (01) ==
PROVIDERS: PCP Internal Medicine; Visit Provider Nurse Practitioner Family
DX: Z12.2 Encounter for screening for malignant neoplasm of respiratory organs (principal); Z87.891 Personal history of nicotine dependence; J90 Pleural effusion, not elsewhere classified
CPT/HCPCS: 71271

== ENCOUNTER 2022-01-08 12:16 | Inpatient (IN) | payer MEDICARE, SELFPAY ==
[2022-01-08] VITALS (35 sets, daily range): BP systolic 116–153; BP diastolic 73–95; PULSE 74–104; RESP 16–36; TEMP 36.4–36.8; O2SAT 92–98; BMI 42.1
--- NOTE | ~2022-01-08 | XR_ITS ---
EXAMINATION: [id number] DATE: 01/08/2022 15:27 INDICATION: Left pleural effusion postthoracentesis TECHNIQUE: frontal view of the chest was obtained. COMPARISON: Chest radiograph dated 01/08/2022 at 1:01 PM FINDINGS: Improved aeration of the partially collapsed left lung with residual large left pleural effusion like ly loculated along the lateral aspect of the upper to lower left hemithorax. No pneumothorax or defin itive right-sided pleural effusion. Pulmonary vascular congestion. Decrease in the indistinct interst itial pattern in the right mid to lower lung zone consistent with improving pulmonary edema. Left hea rt border is obscured limiting assessment for heart size. Visualized bones and soft tissues are unrem arkable. IMPRESSION: 1. Decreased still large likely loculated left pleural effusion with improved aeration of the partial ly collapsed left lung. Underlying pneumonia or malignancy not excludable. 2. Decreasing mild pulmonary edema in the right lung. Reviewed, dictated and finalized at location A. IMPRESSION: 1. Decreased still large likely loculated left pleural effusion with improved a eration of the partially collapsed left lung. Underlying pneumonia or malignanc y not excludable. 2. Decreasing mild pulmonary edema in the right lung.
--- NOTE | ~2022-01-08 | XR_ITS ---
XR chest 1V portable 01/08/2022 13:04 Indication: Cough, shortness of breath. Pneumonia. Procedure: AP portable chest Comparison: Comparison to multiple prior studies sequentially, with oldest reviewed study dated 05/04. Findings: New large left pleural effusion. There is cardiomegaly. There is pulmonary edema. Impression: 1: Cardiomegaly with pulmonary edema. 2: New large left pleural effusion. Reviewed, dictated and finalized at location B. Impression: 1: Cardiomegaly with pulmonary edema. 2: New large left pleural effusion.
--- NOTE | ~2022-01-08 | XR_ITS ---
XR chest 1V portable 01/12/2022 10:22 Indication: Shortness of breath Procedure: AP portable chest Comparison: Comparison to multiple prior studies sequentially, with oldest reviewed study dated 08/2021. Findings: Large left pleural effusion unchanged. Diffuse bilateral airspace disease is unchanged, mos t likely edema. Possible small right effusion. No pneumothorax. Impression: 1: Diffuse bilateral airspace disease, most likely edema. 2: Stable large left pleural effusion. Reviewed, dictated and finalized at location A. Impression: 1: Diffuse bilateral airspace disease, most likely edema. 2: Stable large left pleural effusion.
--- NOTE | ~2022-01-08 | CT_ITS ---
EXAMINATION: CTA chest PE protocol DATE: 01/08/2022 16:53 INDICATION: Low oxygen levels. Pleural effusion. TECHNIQUE: Computed tomography angiography (CTA) of the chest was performed with 100 mL Omnipaque-350 intravenous contrast timed to evaluate the pulmonary arteries. Coronal maximum intensity projection 3D-reconstructions were created by the technologist. Automated exposure control and iterative reconst ruction technique were employed. The dose-length product was 834.76 mGy-cm. COMPARISON: Chest CT 10/11/2021, chest single view 01/08/2022 FINDINGS: There are calcified pleural plaques on the right. There is a large left pleural effusion. T here are airspace opacities in left lung with volume loss, likely predominantly atelectasis. The hear t size is normal. No pericardial effusion. There is no pulmonary embolus. There is ectasia of ascendi ng aorta measuring 4.9 cm. There are old healed right rib fractures. IMPRESSION: 1. No pulmonary embolus. 2. Large left pleural effusion. Reviewed, dictated and finalized at location A.
--- NOTE | ~2022-01-08 | XR_ITS ---
EXAMINATION: XR chest 1V portable DATE: 01/10/2022 06:03 INDICATION: Large pleural effusion TECHNIQUE: frontal view of the chest was obtained. COMPARISON: Chest radiograph dated 01/09/[address] dated 01/08/2022 FINDINGS: No significant change in a large left pleural effusion which extends from the apex. Compensatory atel ectasis throughout much of the left lung with unchanged small amount of residual aerated lung at the medial aspect of the mid and upper lung zones. Cannot exclude underlying pneumonia or malignancy. Rig ht lung is clear. No pneumothorax or right-sided pleural effusion. Portions of the left side of the c ardiac silhouette are obscured of the heart does not appear enlarged on prior CT. A couple old healed right rib fractures. IMPRESSION: 1. Unchanged large left pleural effusion with partial collapse of the left lung. Underlying malignanc y or pneumonia not excludable. Reviewed, dictated and finalized at location A. IMPRESSION: 1. Unchanged large left pleural effusion with partial collapse of the left lung . Underlying malignancy or pneumonia not excludable.
--- NOTE | ~2022-01-08 | US_ITS ---
EXAMINATION: US thoracentesis DATE: 01/08/2022 15:36 INDICATION: Left pleural effusion TECHNIQUE: The procedure and its risks and benefits were discussed with the patient. Potential risks discussed included bleeding, infection, and pneumothorax. The patient understood the risks and agreed to proceed. The skin was prepped and draped in sterile fashion. 1% lidocaine was used for local anes thesia. Under ultrasound guidance, a 5 Fr catheter with trochar was advanced into the large left pleu ral effusion. Fluid was aspirated. The catheter was removed, and a dressing was applied. There were n o immediate complications. FINDINGS: Ultrasound images demonstrate a complex large left pleural effusion with a few thin internal septatio ns. Subsequent images demonstrate the catheter within the fluid. IMPRESSION: 1. Successful ultrasound-guided thoracentesis yielding 700 mL of dark maroon-colored fluid. 2. Several thin internal septations consistent with a complex exudative effusion. Reviewed, dictated and finalized at location A. IMPRESSION: 1. Successful ultrasound-guided thoracentesis yielding 700 mL of dark maroon-c olored fluid. 2. Several thin internal septations consistent with a complex exudative effusio n.
--- NOTE | ~2022-01-08 | XR_ITS ---
EXAMINATION: XR chest 1V portable DATE: 01/09/2022 09:11 INDICATION: Pleural effusion. Dyspnea. TECHNIQUE: A single frontal view of the chest was obtained. COMPARISON: Chest single view 01/08/2022 FINDINGS: There is a large left pleural effusion. There are airspace opacities in all right lung zone s, worse in the mid and lower lung zones. No pneumothorax. The heart size is obscured. There are old healed right rib fractures. IMPRESSION: 1. Worsened large left pleural effusion. 2. Stable airspace opacities in right lung, consistent with pulmonary edema versus pneumonia versus a telectasis. Reviewed, dictated and finalized at location A. IMPRESSION: 1. Worsened large left pleural effusion. 2. Stable airspace opacities in right lung, consistent with pulmonary edema salo jo-ann pneumonia versus atelectasis.
--- NOTE | ~2022-01-08 | US_ITS ---
EXAMINATION: US venous doppler [facility] DATE: 01/09/2022 10:38 INDICATION: Bilateral lower limb edema TECHNIQUE: Nunez scale images without and with compression and Doppler images of the bilateral lower e xtremity veins were obtained. COMPARISON: 05/04/2021 FINDINGS: The right common femoral vein, profunda femoral vein, femoral vein, popliteal vein, peroneal trunk, p osterior tibial veins, and greater saphenous vein are patent. The left common femoral vein, profunda femoral vein, femoral vein, popliteal vein, peroneal trunk, po sterior tibial veins, and greater saphenous vein are patent. IMPRESSION: 1. Patent bilateral lower extremity veins. No evidence of deep venous thrombosis. Reviewed, dictated and finalized at location B. IMPRESSION: 1. Patent bilateral lower extremity veins. No evidence of deep venous thrombosi s.
--- NOTE | 2022-01-08 12:34 | ECG_ITS ---
Measurements Intervals [place] Rate: 85 P: IA: 0 QRS: 10 QRSD: 104 T: 34 QT: 367 QTc: 438 Interpretive Statements ATRIAL FIBRILLATION BASELINE ARTIFACT LOW-VOLTAGE QRS IN PRECORDIAL LEADS ABNORMAL ECG COMPARED TO ECG 05/08/2021 15:44:18 PVCS VERSUS ABERRANT CONDUCTION NO LONGER APPRECIATED Electronically Signed On 01-08-2022 15:25:13 CDT by Gabriel Coello M.D.
--- NOTE | 2022-01-08 12:47 | ED.GENADULT ---
HPI - General Adult General Chief complaint: Shortness of Breath/Dyspnea Stated complaint: SHORT OF BREATH ON HOME O2 Time Seen by Provider: 01/08/22 12:29 Source: RN notes reviewed History of Present Illness HPI narrative: Patient presents emergency department from home for shortness of breath. Patient states has been having progressively worsening shortness of breath over the past 2 to 3 days states has been associate with a cough this been nonproductive. He denies any fevers or chills chest pain abdominal pain nausea vomiting states he has had swelling in his legs. He states he does have a history of CHF and is chronically on 2 L nasal cannula at all times he is followed by Drs. Etienne for pulmonary as well as Dr. Bran for cardiology. states he has had to turn up his at home oxygen to 3 to 4 L at home Related Data Home Medications Medication Instructions Recorded Confirmed finasteride 5 mg tablet 5 mg PO DAILY 03/16/19 01/05/22 aspirin 325 mg tablet 325 mg PO DAILY 06/18/21 01/05/22 Allergies Allergy/AdvReac Type Severity Reaction Status Date / Time No Known Allergies Allergy Verified 01/02/22 08:43 Review of Systems Review of Systems: Gen.: Denies fevers or chills ENT: Denies congestion Respiratory: See HPI CV: Denies chest pain or palpitations GI: Denies abdominal pain nausea, emesis or diarrhea Musculoskeletal: Denies back pain or muscle pain Neuro: Denies numbness, tingling, weakness or focal weakness Skin: Denies rash Except as documented, all other systems reviewed and negative [facility] Past Medical History Medical History Acute on chronic combined systolic (congestive) and diastolic (congestive) heart failure BPH (benign prostatic hyperplasia) Congestive heart failure CVA (cerebral vascular accident) Hx of atrial fibrillation, no current medication Hyperlipidemia Hypertension Hypothyroidism Obesity Surgical History Surgical History History of removal of pigmented skin lesion S/P TURP Family History Family History Sibling Patient's sister is in good health Family history of lung cancer, Onset Age: 62 Family history of malignant neoplasm of breast Father Family history of primary malignant neoplasm of liver Social History Social History Social History: The patient lives with his lucille. He states that he has three children . 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 He used to drink heavily when he was younger. Code staus : full code Smoking packs per day: 1 Smoking cigarettes per day: 20.0 Years smoked: 55 Smoking pack-years: 55.00 Smoking status: Former smoker Tobacco type: cigarettes Second hand tobacco smoke exposure: No Smoking end date: 04/06/16 Alcohol intake: former Substance use: never Substance use type: does not use Spiritual care concerns: No Exam Narrative: APPEARANCE: No acute distress, nontoxic, resting in bed EYES: EOMI HEENT: Normocephalic, atraumatic, OMM RESPIRATORY: No respiratory distress decreased breath sounds in the bilateral lung gonzalez mild wheezing in upper lung gonzalez CARDIOVASCULAR: Irregular irregular without murmurs rubs or gallops. ABDOMINAL: Soft, nontender, nondistended, no rebound or guarding MUSCULOSKELETAl: Moves all extremities. No clubbing, cyanosis 3+ edema of the bilateral lower extremities NEURO: Awake and alert. Following commands, speech normal, no focal deficits SKIN:: Warm, dry. No rashes lesions or abrasions PSYCHIATRIC: Normal affect/mood, Course Course Emergency Course: Discussed with Dr. Gusman for pulmonary recommends little thoracentesis of pleural effusion with labs sent off. Recommends patient start on antibiotics Discussed with Dr. Georges
[2022-01-08 12:57] LABS: PCO2 ABG 65.3 mmHg (35.0-45.0); PO2 ABG 80.8 mmHg (80.0-100.0); pH ABG 7.261 (7.350-7.450)
[2022-01-08 12:58] LABS: Base Excess ABG 0.1 mEq/l (+/-2.0); HCO3 ABG 28.7 mEq/l (22.0-26.0); Oxygen Content ABG 17.9 %vol (16.0-22.0); Oxygen Saturation ABG 93.9 % (95.0-100.0); Oxyhemoglobin 92.9 % THb (90.0-100.0); Total Hemoglobin 13.7 g/dL (12.0-18.0)
[2022-01-08 12:59] LABS: Device NASAL CANNULA; Fractional Inspired Oxygen 44 %; Methemoglobin ABG 0.2 %THb (0-1.5); Modified Allen's Test Pass; Reduced Hemoglobin 5.7 %THb (0-5.0); Site Drawn LEFT RADIAL
[2022-01-08] MEDS: FUROSEMIDE INJ 40 MG/4 ML VIAL IV PUSH (13:15)
[2022-01-08 13:36] LABS: Basophils Absolute Auto 0.1 K/mm3 (0.0-0.1); Basophils Percent Auto 0.4 % (0.2-1.2); Eosinophils Absolute Auto 0.1 K/mm3 (0-0.3); Eosinophils Percent Auto 0.4 % (0-4.4); Hematocrit 43.4 % (42.0-52.0); Hemoglobin 13.1 g/dL (14.0-18.0); Immature Granulocyte Absolute 0.09 K/mm3 (0.00-0.031); Immature Granulocyte Percent A 0.6 % (0-0.5); Lymphocytes Absolute Auto 1.85 K/mm3 (0.9-3.2); Lymphocytes Percent Auto 13.3 % (18.3-44.2); Mean Corpuscular HGB Conc 30.2 g/dl (32-36); Mean Platelet Volume 9.7 fl (7.4-10.4); Monocytes Percent Auto 14.1 % (2.6-8.5); Neutrophils Absolute Auto 9.9 K/mm3 (1.3-6.7); Neutrophils Percent Auto 71.2 % (45.5-73.1); Platelet Count Result 344 k/mm3 (150-375); Red Blood Count 4.52 M/mm3 (4.6-6.20); White Blood Count 13.9 K/mm3 (4.5-10.0)
[2022-01-08 13:51] LABS: Alanine Aminotransferase 53 U/L (6-50); Albumin Level 3.9 g/dL (3.5-5.1); Alkaline Phosphatase 115 U/L (38-126); Anion Gap 11 mmol/L (8-16); Aspartate Amino Transferase 61 U/L (17-59); Bilirubin,Total 0.6 mg/dL (0.2-1.3); Blood Urea Nitrogen 26 mg/dL (9-20); Carbon Dioxide 37 mmol/L (22-30); Chloride 99 mmol/L (98-107); Estimated Glomerular Filt Rate 49; Glucose 201 mg/dL (65-110); Potassium 4.4 mmol/L (3.4-5.0); Sodium 147 mmol/L (137-145)
[2022-01-08 13:54] LABS: INR 1.3; Prothrombin Time 15.5 Seconds (11.1-14.7)
[2022-01-08 13:55] LABS: Partial Thromboplastin Time 34.3 SECONDS (22.3-36.8)
[2022-01-08 14:03] LABS: NT Pro B Type Natriuretic Pept 1270 pg/mL (5-100); Troponin I < 0.012 ng/mL (0.000-0.034)
[2022-01-08 14:21] LABS: SARS-CoV-2 RNA PCR Negative
[2022-01-08 16:04] LABS: pH Pleural Fluid 7.199 (7.210-7.500)
--- NOTE | 2022-01-08 16:27 | PM.CNCAR ---
Assessment and Plan Assessment and plan (1) Morbid obesity with BMI of 40.0-44.9, adult: Code(s): E66.01 - Morbid (severe) obesity due to excess calories; Z68.41 - Body mass index [BMI] 40.0-44.9, adult Status: Acute (2) Pleural effusion: Code(s): J90 - Pleural effusion, not elsewhere classified Status: Acute (3) Obstructive sleep apnea: Code(s): G47.33 - Obstructive sleep apnea (adult) (pediatric) Status: Acute (4) Atrial fibrillation: Code(s): I48.91 - Unspecified atrial fibrillation Status: Acute (5) History of CVA (cerebrovascular accident): Code(s): Z86.73 - Personal history of transient ischemic attack (TIA), and cerebral infarction without residual deficits Status: Acute (6) Acute on chronic diastolic (congestive) heart failure: Code(s): I50.33 - Acute on chronic diastolic (congestive) heart failure Status: Acute Plan Patient improved with thoracentesis and IV Lasix. Continue with IV intermittent diuresis. AFIB is rate-controlled, continue with oral home dose Metoprolol. Not on anticoagulation for his AFIB due to the reasons mentioned in HPI. History of Present Illness History of Present Illness Consult date/time: 01/08/22 16:27 Requesting physician: Caleb Meadows DO Consult reason: congestive heart failure Reason For Visit: SHORT OF BREATH ON HOME O2 Narrative: Patient is a 76 year old male with a history of diastolic heart failure, atrial fibrillation not on anticoagulation, morbid obesity, history of CVA who presented with shortness of breath and acute hypoxic respiratory failure. Patient is a known patient of Dr. Bran. 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 Patient declined to be on anticoagulation after this, and had declined Watchman as well. Patient then had a CVA. After the CVA, he started anticoagulation, but again developed hematuria, so has been off of it. Patient began having shortness of breath yesterday. ED evaluation showed BNP of 1270. CXR showed large left pleural effusion. Underwent thoracentesis which showed 700ccs of dark maroon-colored fluid, several thin internal septations consistent with a complex exudative effusion. EKG shows rate controlled AFIB. Patient given IV Lasix. A CTA has been ordered and pending at this time. Review of Systems Review of Systems: All systems reviewed & are unremarkable except as noted in HPI and below (HPI) [facility] Past Medical History Medical History Acute on chronic combined systolic (congestive) and diastolic (congestive) heart failure BPH (benign prostatic hyperplasia) Congestive heart failure CVA (cerebral vascular accident) Hx of atrial fibrillation, no current medication Hyperlipidemia Hypertension Hypothyroidism Obesity Surgical History Surgical History History of removal of pigmented skin lesion S/P TURP Family History Family History Sibling Patient's sister is in good health Family history of lung cancer, Onset Age: 62 Family history of malignant neoplasm of breast Father Family history of primary malignant neoplasm of liver Social History Social History Social History: The patient lives with his lucille. He states that he has three children . 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 He used to drink heavily when he was younger. Code staus : full code Smoking packs per day: 1 Smoking cigarettes per day: 20.0 Years smoked: 55 Smoking pack-years: 55.00 Smoking status: Former smoker Tobacco type: cigarettes Second hand tobacco smoke exposure: No Smo
[2022-01-08 18:11] LABS: Appearance Pleural Fluid Bloody (Clear); Color Pleural Fluid Red (Colorless); Pleural fluid source Pleural fluid
[2022-01-08 18:14] LABS: Lymphocytes Pleural Fluid 44 %; Neutrophils Pleural Fluid 14 % (0-25)
[2022-01-08 18:15] LABS: Monocytes Pleural Fluid 42 %
--- NOTE | 2022-01-08 19:46 | PC.NURSE ---
report to corey steve imu. hospitalist at bedside
--- NOTE | 2022-01-08 19:47 | PM.IMHP ---
H&P: HPI History of Present Illness Date/Time: 01/08/22 19:47 Chief Complaint: Shortness of breath Narrative: This is a 76-year-old male patient to wears oxygen at home. He came to the emergency room with complaints of shortness of breath. He does have a history of CHF. Over the last 3 days he has had a cough that is nonproductive. Patient is typically on oxygen at 2 L per nasal cannula. He follows with ship fastener here at [facility]. Since he has been more short of breath he did increase his oxygen to 3-4 L at home. He typically sees Dr. Bran and cardiology was consulted today. His white count 13.9. Patient's arterial blood gases pH 7.26 and a CO2 of 65.3. Patient's creatinine is 1.4 BUN is 26. And glucose 201. BNP 1270. Chest x-ray was read as cardiomegaly with pulmonary edema. New large left pleural effusion. The patient had a thoracentesis that yielded 700 mL of dark maroon colored fluid. Several thin internal septations consistent with a complex exudate effusion. Repeat chest x-ray shows decreased still large likely loculated left pleural effusion with improved aeration the partially collapsed left lung. Underlying pneumonia or malignancy not excludable. Decreasing mild pulmonary edema and the right lung. Chest CTA was read as no pulmonary embolism. Large left pleural effusion. Patient was started on Rocephin and azithromycin as well as Lasix in the emergency room. Patient initially was admitted to observation and then changed to inpatient services on the date of service of 01/08/2022. Review of Systems Review of Systems: See HPI All systems reviewed & are unremarkable except as noted in HPI and below Constitutional: Constitutional: Reports as per HPI and Reports no additional constitutional complaints Eyes: Eyes: Reports as per HPI and Reports no additional eye complaints ENT: Reports system reviewed and no additional complaints, except as documented and Reports Normal hearing present Cardiovascular: Cardiovascular: Reports no additional cardiovascular complaints Respiratory: Respiratory: Reports no additional respiratory complaints and Reports no additional respiratory complaints Gastrointestinal: Gastrointestinal: Reports as per HPI and Reports no additional gastrointestinal complaints Musculoskeletal: Musculoskeletal: Reports no additional musculoskeletal complaints Integumentary/Breasts: Skin/Breast: Reports system reviewed and no additional complaints, except as docu and Reports as per HPI Neurologic: Reports system reviewed and no additional complaints, except as documented, Reports as per HPI and Reports Normal hearing present Psychiatric: Psychiatric: Reports no additional psychiatric complaints and Reports as per HPI Endocrine: Endocrine: Reports no additional endocrine complaints Hematologic/Lymphatic: Hematologic/Lymphatic: Reports no additional hematologic/lymphatic complaints Allergic/Immunologic: Allergic/Immunologic: Reports no additional allergic/immunologic complaints [facility] Past Medical History Medical History Acute on chronic combined systolic (congestive) and diastolic (congestive) heart failure BPH (benign prostatic hyperplasia) Congestive heart failure CVA (cerebral vascular accident) History of throat cancer Hx of atrial fibrillation, no current medication Hx of bladder cancer Hyperlipidemia Hypertension Hypothyroidism Obesity Surgical History Surgical History H/O knee surgery telly History of bladder surgery History of removal of pigmented skin lesion History of throat surgery S/P TURP Family History Family History Sibling Family history of lung cancer, Onset Age: 62 Family history of malignant neoplasm of breast sister Father Family history of primary malignant neoplasm of eva
--- NOTE | 2022-01-08 20:00 | PC.NURSE ---
RT called and reported nurse can transport pt on n/c and RT will come down for BiPAP at later time.
--- NOTE | 2022-01-08 20:22 | ADMGEN ---
This patient, Evan Wright Jr., was admitted to IMU Room 201-01 at 2020. Patient/family oriented to hospital policies and general routines including ID bracelet, bed and alarms, visiting hours, pain management, procedures, bathroom and other care routines, personal items, smoking policy, room service/diet, and visiting hours. Information on how to activate the Rapid Response Team has been discussed. Patient/Family are encouraged to report perceived risks to care and to ask questions if they do not understand what they are told or what they should do.
[2022-01-08 22:07] LABS: Lactate Dehydrogenase 216 U/L (120-246)
[2022-01-08 22:21] LABS: Troponin I < 0.012 ng/mL (0.000-0.034)
[2022-01-09] VITALS (16 sets, daily range): BP systolic 107–139; BP diastolic 64–88; PULSE 80–123; RESP 16–32; TEMP 36.2–36.7; O2SAT 92–98
--- NOTE | 2022-01-09 | ECHO_ITS ---
Patient Info Name: Evan Wright Age: 76 years : 1945 Gender: Male Ht: 75 in Wt: 357 lbs BSA: 3.00 m2 HR: 105 bpm BP: 139 / 88 mmHg Heart Rhythm: Atrial Fibrillation Technical Quality: Fair Exam Date: 01/09/2022 8:31 AM Exam Location: [facility] Patient Status: Outpatient Admit Date: 01/08/2022 Staff Ordering Physician: Chloe Hunt NP Microsystems Engineer: Julianna Sun RDCS Attending Provider: Darvin Rob MD Referring Physician: Gilbert MAN; Exam Type: CA echo dop color flow w con Study Info Indications - pleural effusion Complete two-dimensional, color flow and Doppler transthoracic echocardiogram is performed with contrast to opacify the left ventricle and to improve the deliniation of the left ventricle endocardial borders. Contrast/Agitated Saline Contrast/Ag. Saline: Definity Amount: 3.00 ml Administered By: Julianna Sun RDCS Existing IV Access: Yes IV Access Condition: patent with no signs of infiltration Summary 1. Technically difficult study with limited views. Despite definity contrast enhancement regional wall motion assessment limited due to poor endomyocardial border definition in several views. 2. Left ventricular chamber dimension is normal. 3. Left ventricular systolic function is normal, estimated at 60-65%. 4. There is mildly increased left ventricular wall thickness. 5. Right ventricular chamber dimension is not well visualized. TAPSE 2.1 suggestive of preserved LV systolic function. 6. Right atrial chamber dimension is mildly enlarged. 7. There is trace tricuspid valve regurgitation. 8. No pulmonary hypertension, estimated pulmonary arterial systolic pressure is 22 mmHg. Left Ventricle Left ventricular chamber dimension is normal. Left ventricular systolic function is normal, estimated at 60-65%. There is mildly increased left ventricular wall thickness. The left ventricular diastolic function is indeterminate. Technically difficult study with limited views. Despite definity contrast enhancement regional wall motion assessment limited due to poor endomyocardial border definition in several views. Right Ventricle Right ventricular chamber dimension is not well visualized. TAPSE 2.1 suggestive of preserved LV systolic function. Left Atria Left atrial chamber dimension is normal. Right Atria Right atrial chamber dimension is mildly enlarged. Aortic Valve The aortic valve is not well visualized. There is no aortic valve stenosis. Pulmonic Valve The pulmonic valve is not well visualized. Mitral Valve The mitral valve has not well visualized. There is trace mitral valve regurgitation. Tricuspid Valve The tricuspid valve leaflets are not well visualized. There is trace tricuspid valve regurgitation. No pulmonary hypertension, estimated pulmonary arterial systolic pressure is 22 mmHg. Pericardium/Pleural The pericardium appears epicardial fat pad. There is small pericardial effusion. Aorta The aortic root size at the sinus of Valsalva is mildly dilated. The prox ascending aorta size is mildly dilated. There is mild aortic atherosclerosis. Left Ventricular Outflow Tract Name Value Normal LVOT 2D
--- NOTE | 2022-01-09 03:53 | PC.NURSE ---
PATIENT IS HAVING DIFFICULTY URINATING. KEEPS GETTING UP AND TRYING AND HIS HEART RATE INCREASES INTO 160'S AND PATIENT BECOMES MORE SOB. BLADDER SCAN WAS GREATER THAN 350. DR AREVALO IS AWARE AND A DUMONT CATHETER WAS ORDERED.
[2022-01-09 04:20] LABS: Basophils Absolute Auto 0.1 K/mm3 (0.0-0.1); Basophils Percent Auto 0.4 % (0.2-1.2); Eosinophils Absolute Auto 0.2 K/mm3 (0-0.3); Eosinophils Percent Auto 1.3 % (0-4.4); Hematocrit 44.1 % (42.0-52.0); Hemoglobin 13.3 g/dL (14.0-18.0); Immature Granulocyte Absolute 0.09 K/mm3 (0.00-0.031); Immature Granulocyte Percent A 0.7 % (0-0.5); Lymphocytes Absolute Auto 2.53 K/mm3 (0.9-3.2); Lymphocytes Percent Auto 20.5 % (18.3-44.2); Mean Corpuscular HGB Conc 30.2 g/dl (32-36); Mean Corpuscular Hemoglobin 28.9 pg (26-34); Mean Corpuscular Volume 95.7 fl (80-100); Mean Platelet Volume 9.7 fl (7.4-10.4); Monocytes Absolute Auto 1.6 K/mm3 (0.1-0.6); Monocytes Percent Auto 12.6 % (2.6-8.5); Neutrophils Percent Auto 64.5 % (45.5-73.1); Platelet Count Result 356 k/mm3 (150-375); Red Blood Count 4.61 M/mm3 (4.6-6.20); White Blood Count 12.3 K/mm3 (4.5-10.0)
[2022-01-09] MEDS: LEVOTHYROXINE SODIUM 112 MCG TABLET PO (05:49)
[2022-01-09 07:23] LABS: Alanine Aminotransferase 49 U/L (6-50); Albumin Level 3.5 g/dL (3.5-5.1); Alkaline Phosphatase 112 U/L (38-126); Anion Gap 10 mmol/L (8-16); Aspartate Amino Transferase 43 U/L (17-59); Bilirubin,Total 0.6 mg/dL (0.2-1.3); Blood Urea Nitrogen 24 mg/dL (9-20); Carbon Dioxide 34 mmol/L (22-30); Chloride 97 mmol/L (98-107); Estimated CRCL calculation 74 ml/min; Estimated Glomerular Filt Rate 59; Glucose 154 mg/dL (65-110); Potassium 4.4 mmol/L (3.4-5.0); Sodium 141 mmol/L (137-145)
[2022-01-09] MEDS: PERFLUTREN LIPID MICROSPHERES 1.5 ML VIAL DILUTED TO 10 ML TOTAL VOLUME IV PUSH (08:42)
--- NOTE | 2022-01-09 08:43 | IVDEFINITY ---
Prior to administration of IV Definity the patient was educated on the risks and benefits of the imaging enhancing agent including potential adverse side effects. The patient verbalized understanding. Allergies were verified. No exclusion criteria were identified and at least one of the following inclusion criteria were met: 1) physician request, 2) patient technically difficult to image (per the [employer] guidelines of two or more segments not discernable within the apical view), or 3) questionable left ventricular function. ?
[2022-01-09] MEDS: FINASTERIDE 5 MG TABLET PO (09:17)
[2022-01-09] MEDS: METOPROLOL TARTRATE 50 MG TAB PO (09:17)
[2022-01-09] MEDS: lisinopriL 20 MG TABLET 40 MG PO (09:17)
[2022-01-09] MEDS: FELODIPINE 5 MG TAB CR PO (09:17)
[2022-01-09] MEDS: ATORVASTATIN 40 MG TABLET PO (09:17)
[2022-01-09] MEDS: FUROSEMIDE INJ 40 MG/4 ML VIAL IV PUSH (09:17)
[2022-01-09] MEDS: TOLNAFTATE 1% POWDER 45 GM BTL 1 APPLIC TOPICAL ×2 (09:17→21:47)
[2022-01-09] MEDS: ASPIRIN 325 MG TABLET PO (09:17)
--- NOTE | 2022-01-09 09:23 | PM.CNPUL ---
Assessment and Plan Assessment and plan (1) Pleural effusion on left: Code(s): J90 - Pleural effusion, not elsewhere classified Status: Acute Assessment and Plan: patient presents on 01/08 with 2 weeks worsening oxygenation, back pain, leukocytosis, acute on chronic hypercarbic and hypoxemic respiratory failure with a complex left pleural effusion by ultrasound (several septations), status post thoracentesis of 700 mL of dark maroon fluid with a pH of 7.20. CT scan after the thoracentesis shows a large left pleural effusion with areas of loculation. Chest x-ray this morning demonstrates worsening consolidation of the left lung such that 10% of the hemithorax is aerated. Patient is currently on ceftriaxone and azithromycin and recommend changing to broader antibiotics pending pleural cultures in case this is the empyema to vancomycin, imipenem and Levaquin. Recommend patient be transferred to higher level of care facility with cardiothoracic evaluation for consideration of surgical chest tube or VATS procedure. Along these lines I have requested radiographs be forwarded to CTS colleagues at [facility] and am awaiting a call back from them. I will have Dr. Rob, the hospitalist, request transfer to [facility]. Discussed with Dr. Rob, will follow with you. (2) Respiratory failure with hypoxia and hypercapnia: Code(s): J96.91 - Respiratory failure, unspecified with hypoxia; J96.92 - Respiratory failure, unspecified with hypercapnia Status: Acute Assessment and Plan: Patient with a history of restrictive lung disease, obstructive sleep apnea on CPAP 11 and now presents with acute on chronic hypercarbic and hypoxemic respiratory failure with a blood gas of 7.26/65/81 on 6 L nasal cannula. I changed his BiPAP to a noninvasive ventilator with an AVAPS mode and adjusted the settings for comfort which resulted in a rate of 16, tidal volume 500, EPAP 7, minimal inspiratory pressure 8, maximal inspiratory pressure 25, inspiratory time 1.2, rise of 5 which is are slowest and 45%. The patient should wear the noninvasive ventilator p.r.n. during the day and at night. History of Present Illness History of Present Illness Consult date: 01/09/22 Chief complaint: acute respiratory failure with hypoxia and hyperca Narrative: 01/09/2022: This is a new pulmonary consult for complex left pleural effusion. 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 Patient tells me he has had 2 weeks of worsening oxygenation requiring him to turn up his oxygen from his usual 2 L to 4 L. the patient has chronic back pain and says that this may have been worse over the last 2 weeks. patient states his cough has increased over the last 2 days with no change in his white phlegm production. Patient denied fever, chills, rigors, Or shortness of breath. Patient presented to the emergency due room on 01/08 and had a white blood cell count of 13.9, 0.4% eosinophils, creatinine of 1.4, BNP of 1270 and a blood gas on 6 L nasal cannula with a pH of 7.26/65/81. Patient had a chest x-ray demonstrating a large left pleural effusion new compared to 10/01/2021. Patient had An ultrasound-guided left lung thoracentesis that noticed a complex large left pleural effusion with a several thin internal septations . thoracentesis with 700 mill is of dark maroon fluid removed, grand stain rare white blood cells, no organisms seen, pH 7.20, differential neutrophils 14, lymphocytes 44, monocytes 42. a CTA scan of the was then obtained and demonstrated no pulmonary embolism, calcified pleural plaques on the right a large partially lo
--- NOTE | 2022-01-09 10:59 | PM.PNCARD ---
Progress Note: A&P Assessment and Plan (1) Respiratory failure with hypoxia and hypercapnia: Code(s): J96.91 - Respiratory failure, unspecified with hypoxia; J96.92 - Respiratory failure, unspecified with hypercapnia Status: Acute (2) Pleural effusion on left: Code(s): J90 - Pleural effusion, not elsewhere classified Status: Acute (3) Acute renal insufficiency: Code(s): N28.9 - Disorder of kidney and ureter, unspecified Status: Acute (4) Morbid obesity with BMI of 40.0-44.9, adult: Code(s): E66.01 - Morbid (severe) obesity due to excess calories; Z68.41 - Body mass index [BMI] 40.0-44.9, adult Status: Acute (5) Atrial fibrillation: Code(s): I48.91 - Unspecified atrial fibrillation Status: Acute Plan Pulmonary recommends patient be transferred to high level of care facility for CTS eval for surgical chest tube or VATS. Given his AFIB with RVR overnight and this morning, will increase dose of Metoprolol to optimize rate control. Subjective Date/time seen: 01/09/22 10:59 Interval history: CT scan was done yesterday afternoon which showed large left pleural effusion with areas of loculation. CXR this morning shows worsening consolidation of the lung. Seen by Pulmonary who recommends patient be transferred to high level of care facility for CTS eval for surgical chest tube or VATS. Patient in AFIB with RVR overnight and this morning. Patient denies any chest pain or feeling palpitations. Review of Systems Review of Systems: All systems reviewed & are unremarkable except as noted in HPI and below (subjective) Exam Const: General: comfortable and no acute distress Other: Morbidly obese Resp: Effort & Inspection: normal respiratory effort Other: Decreased breath sounds on the left Cardio: Rate: tachycardic Rhythm: abnormal rhythm irregularly irregular Heart sounds: no murmurs Skin: General skin exam: normal color Neuro: Speech: normal speech Extrem: General: no edema Psych: Mental Status: mental status grossly normal Objective Data Vital Signs Vital Signs: Vital Signs - 24 hr 01/08/22 12:39 01/08/22 12:45 01/08/22 12:45 Temperature 36.8 C Pulse Rate 83 86 83 Respiratory Rate 20 32 H Blood Pressure 126/82 127/82 Pulse Oximetry 94 95 Oxygen Delivery Nasal Cannula Oxygen Flow Rate 6.0 01/08/22 13:46 01/08/22 14:12 01/08/22 12:40 Temperature Pulse Rate 88 Respiratory Rate 18 18 29 H Blood Pressure Pulse Oximetry 95 Oxygen Delivery BiPAP BiPAP Oxygen Flow Rate 01/08/22 12:45 01/08/22 12:46 01/08/22 13:00 Temperature Pulse Rate 87 83 89 Respiratory Rate 32 H 16 24 H Blood Pressure 119/85 Pulse Oximetry 95 95 Oxygen Delivery Oxygen Flow Rate 01/08/22 13:01 01/08/22 13:45 01/08/22 14:00 Temperature Pulse Rate 94 91 87 Respiratory Rate 36 H 22 H 29 H Blood Pressure 129/81 Pulse Oximetry 94 98 Oxygen Delivery Oxygen Flow Rate 01/08/22 14:16 01/08/22 14:17 01/08/22 14:30 Temperature Pulse Rate 85 81 86 Respiratory Rate 28 H 31 H 28 H Blood Pressure 118/85 Pulse Oximetry Oxygen Delivery Oxygen Flow Rate 01/08/22 14:31 01/08/22 14:45 01/08/22 14:46 Temperature Pulse Rate 85 83 74 Respiratory Rate 29 H 23 H 19 Blood Pressure 116/84 121/73 Pulse Oximetry Oxygen Delivery Oxygen Flow Rate 01/08/22 14:47 01/08/22 15:04 01/08/22 15:15 Temperature Pulse Rate 75 83 86 Respiratory Rate 17 30 H 21 H Blood Pressure Pulse Oximetry Oxygen Delivery Oxygen Flow Rate 01/08/22 15:42 01/08/22 15:45 01/08/22 16:00 Temperature Pulse Rate 85 91 81 Respiratory Rate 17 30 H 17 Blood Pressure Pulse Oximetry Oxygen Delivery Oxygen Flow Rate 01/08/22 17:28 01/08/22 17:30 01/08/22 17:31 Temperature Pulse Rate 93 89 94 Respiratory Rate 23 H 27 H 20 Blood Pressure 153/89 H Pulse Oximetry 97
--- NOTE | 2022-01-09 12:56 | PM.IMPN ---
Progress Note: A&P Assessment and Plan (1) Pleural effusion on left: Code(s): J90 - Pleural effusion, not elsewhere classified Status: Acute Assessment and Plan: -new Status post thoracentesis 01/08/2022. 700 mL recovered. Pulmonary consult On Rocephin and azithromycin Post tap CT with local to pleural effusion PH on the pleural fluid analysis low suggestive of complicated pleural effusion/empyema Antibiotics switched to vancomycin Primaxin and Levaquin Needs VATS like CT surgery Discussed [facility] hospitalist team and excepted it this facility awaiting bed placement. (2) Acute on chronic diastolic (congestive) heart failure: Code(s): I50.33 - Acute on chronic diastolic (congestive) heart failure Status: Acute Assessment and Plan: -continue with lisinopril and monitor BMP -continue with IV Lasix. -continue with metoprolol. -cardiology has been consulted and has already seen the patient. -echo 01/09/2022 with EF 60-65%, no pulmonary hypertension (3) Obstructive sleep apnea: Code(s): G47.33 - Obstructive sleep apnea (adult) (pediatric) Status: Acute Assessment and Plan: -continue with home settings for CPAP (4) Chronic respiratory failure with hypoxia and hypercapnia: Code(s): J96.11 - Chronic respiratory failure with hypoxia; J96.12 - Chronic respiratory failure with hypercapnia Status: Acute Assessment and Plan: Pulmonary consulted -the patient stated that he has sleep apnea and had is having difficulty with his CPAP machine. Sometimes he cannot tolerated for more than 4 5 hours. -The patient wears oxygen at 2-3 L typically but he increased it himself to 4 -5 this past week. (5) Atrial fibrillation: Code(s): I48.91 - Unspecified atrial fibrillation Status: Acute Assessment and Plan: -patient is no longer on anticoagulation due to hematuria another bleeding problems. -the patient is in atrial fibrillation today but is rate controlled. -continue with metoprolol. (6) Acute on chronic combined systolic (congestive) and diastolic (congestive) heart failure: Code(s): I50.43 - Acute on chronic combined systolic (congestive) and diastolic (congestive) heart failure Status: Acute Assessment and Plan: -continue with IV Lasix -continue with metoprolol -contine with lisinopril (7) Pneumonia: Qualifiers: Laterality: bilateral Lung location: lower lobe of lung Pneumonia type: due to unspecified organism Qualified Code(s): J18.9 - Pneumonia, unspecified organism Code(s): J18.9 - Pneumonia, unspecified organism Status: Acute Assessment and Plan: -Continue with azithromycin Rocephin. -blood and sputum cultures are pending. Switch antibiotic to vancomycin Primaxin and Levaquin (8) BPH (benign prostatic hyperplasia): Code(s): N40.0 - Benign prostatic hyperplasia without lower urinary tract symptoms Status: Acute Assessment and Plan: -continue with finasteride (9) Hypertension: Code(s): I10 - Essential (primary) hypertension Status: Chronic Assessment and Plan: -continue metoprolol -continue with lisinopril -continue with felodipine (10) Hyperlipidemia: Code(s): E78.5 - Hyperlipidemia, unspecified Status: Chronic Assessment and Plan: -Continue with atorvastatin (11) Hypothyroidism: Code(s): E03.9 - Hypothyroidism, unspecified Status: Acute Assessment and Plan: -continue levothyroxine -continue with levothyroxine. Subjective Date/time seen: 01/09/22 12:56 Interval history: This is a 76-year-old male patient to wears oxygen at home.? He came to the emergency room with complaints of shortness of breath.? He does have a history of CHF.? Over the last 3 days he has had a cough that is nonproductive.? Patient is typically on oxygen at 2 L per nasal cannula.? He follows with security coordinator here at [facility]
--- NOTE | 2022-01-09 14:56 | PC.NURSE ---
On 01/09/22, the student, [Mirna Montero], provided care and completed [facility] documentation on this patient. I have reviewed the student's documentation and agree with the findings.
[2022-01-09] MEDS: ACETAMINOPHEN 500 MG TABLET 1000 MG PO (18:22)
[2022-01-09] MEDS: METOPROLOL TARTRATE 50 MG TAB 100 MG PO (21:46)
[2022-01-10] VITALS (15 sets, daily range): BP systolic 95–138; BP diastolic 62–82; PULSE 69–112; RESP 18–28; TEMP 36.3–36.8; O2SAT 92–98
[2022-01-10 04:36] LABS: Basophils Absolute Auto 0.1 K/mm3 (0.0-0.1); Basophils Percent Auto 0.5 % (0.2-1.2); Eosinophils Absolute Auto 0.2 K/mm3 (0-0.3); Eosinophils Percent Auto 1.9 % (0-4.4); Hematocrit 41.6 % (42.0-52.0); Hemoglobin 12.7 g/dL (14.0-18.0); Immature Granulocyte Absolute 0.08 K/mm3 (0.00-0.031); Immature Granulocyte Percent A 0.7 % (0-0.5); Lymphocytes Absolute Auto 2.44 K/mm3 (0.9-3.2); Mean Corpuscular HGB Conc 30.5 g/dl (32-36); Mean Corpuscular Hemoglobin 28.8 pg (26-34); Mean Corpuscular Volume 94.3 fl (80-100); Mean Platelet Volume 9.6 fl (7.4-10.4); Monocytes Absolute Auto 1.4 K/mm3 (0.1-0.6); Monocytes Percent Auto 12.4 % (2.6-8.5); Neutrophils Absolute Auto 7.4 K/mm3 (1.3-6.7); Neutrophils Percent Auto 63.5 % (45.5-73.1); Platelet Count Result 352 k/mm3 (150-375); Red Blood Count 4.41 M/mm3 (4.6-6.20); Red Cell Distribution Width 13.5 % (11.5-14.5); White Blood Count 11.6 K/mm3 (4.5-10.0)
[2022-01-10 05:04] LABS: Alanine Aminotransferase 37 U/L (6-50); Albumin Level 3.4 g/dL (3.5-5.1); Alkaline Phosphatase 92 U/L (38-126); Anion Gap 6 mmol/L (8-16); Aspartate Amino Transferase 37 U/L (17-59); Bilirubin,Total 0.5 mg/dL (0.2-1.3); Blood Urea Nitrogen 27 mg/dL (9-20); Calcium 8.6 mg/dL (8.4-10.2); Carbon Dioxide 38 mmol/L (22-30); Chloride 96 mmol/L (98-107); Estimated CRCL calculation 69 ml/min; Estimated Glomerular Filt Rate 54; Glucose 147 mg/dL (65-110); Magnesium 2.1 mg/dL (1.6-2.3); Potassium 4.2 mmol/L (3.4-5.0); Sodium 140 mmol/L (137-145)
[2022-01-10] MEDS: LEVOTHYROXINE SODIUM 112 MCG TABLET PO (06:15)
[2022-01-10] MEDS: lisinopriL 20 MG TABLET 40 MG PO (09:28)
[2022-01-10] MEDS: FELODIPINE 5 MG TAB CR PO (09:29)
[2022-01-10] MEDS: ASPIRIN 325 MG TABLET PO (09:29)
[2022-01-10] MEDS: FINASTERIDE 5 MG TABLET PO (09:29)
[2022-01-10] MEDS: FUROSEMIDE INJ 40 MG/4 ML VIAL IV PUSH (09:29)
[2022-01-10] MEDS: ATORVASTATIN 40 MG TABLET PO (09:29)
[2022-01-10] MEDS: METOPROLOL TARTRATE 50 MG TAB 100 MG PO ×2 (09:29→20:25)
[2022-01-10] MEDS: TOLNAFTATE 1% POWDER 45 GM BTL 1 APPLIC TOPICAL ×2 (09:50→20:25)
--- NOTE | 2022-01-10 09:55 | PM.PNPUL ---
Progress Note: A&P Assessment and Plan (1) Pleural effusion on left: Code(s): J90 - Pleural effusion, not elsewhere classified Status: Acute Assessment and Plan: patient presents on 01/08 with 2 weeks worsening oxygenation, back pain, leukocytosis, acute on chronic hypercarbic and hypoxemic respiratory failure with a complex left pleural effusion by ultrasound (several septations), status post thoracentesis of 700 mL of dark maroon fluid with a pH of 7.20. CT scan after the thoracentesis shows a large left pleural effusion with areas of loculation. Chest x-ray this morning demonstrates worsening consolidation of the left lung such that 5% of the hemithorax is aerated. 01/09 Patient is currently on ceftriaxone and azithromycin and recommend changing to broader antibiotics pending pleural cultures in case this is the empyema to vancomycin, imipenem and Levaquin. Recommend patient be transferred to higher level of care facility with cardiothoracic evaluation for consideration of surgical chest tube or VATS procedure. Along these lines I have requested radiographs be forwarded to CTS colleagues at [facility] and am awaiting a call back from them. I will have Dr. Rob, the hospitalist, request transfer to [facility]. Later in the day, I spoke with the cardiothoracic team at [facility] and they have accepted the patient and are awaiting a bed. 01/10 patient is sitting in a chair and states he feels fine he has no respiratory complaints. 6 L saturations 96%. White blood cell count 11.6, creatinine 1.3. Chest x-ray with a centrally no change in the large left pleural effusion with approximately 90% of the left hemithorax consolidated. waiting for transfer to [facility]. Pulmonary inpatient services will resume on 01/13/2022, call with questions. (2) Respiratory failure with hypoxia and hypercapnia: Code(s): J96.91 - Respiratory failure, unspecified with hypoxia; J96.92 - Respiratory failure, unspecified with hypercapnia Status: Acute Assessment and Plan: Patient with a history of restrictive lung disease, obstructive sleep apnea on CPAP 11 and now presents with acute on chronic hypercarbic and hypoxemic respiratory failure with a blood gas of 7.26/65/81 on 6 L nasal cannula. 01/09 I changed his BiPAP to a noninvasive ventilator with an AVAPS mode and adjusted the settings for comfort which resulted in a rate of 16, tidal volume 500, EPAP 7, minimal inspiratory pressure 8, maximal inspiratory pressure 25, inspiratory time 1.2, rise of 5 which is are slowest and 45%. The patient should wear the noninvasive ventilator p.r.n. during the day and at night. 01/10 The patient stated that he tried to wear the noninvasive ventilator for an hour and 20 minutes last night but he could not get comfortable and could not sleep and therefore requested the machine be taken off and he did not wear it the rest of the night. Continue to try to see if patient can wear the noninvasive ventilator but I am not a to optimistic that he will be able to rest comfortably and sleep with this machine on. He says that it is not painful and he just can't get comfortable with the mask on his face. Subjective Date/time seen: 01/10/22 09:55 Interval history: 01/09/2022:? This is a new pulmonary consult for complex left pleural effusion.? 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 ? Patient tells me he has had 2 weeks of worsening oxygenation requiring him to turn up his oxygen from his usual 2 L to 4 L. the patient has chronic back pain and says that this may have been worse over the last 2 weeks.? patient states h
--- NOTE | 2022-01-10 11:54 | PM.PNCARD ---
Progress Note: A&P Assessment and Plan (1) Hx of atrial fibrillation, no current medication: Code(s): Z86.79 - Personal history of other diseases of the circulatory system Status: Chronic (2) Atrial fibrillation: Code(s): I48.91 - Unspecified atrial fibrillation Status: Acute Plan 76-year-old man with chronic persistent atrial fibrillation for a long time. He now presents with shortness of breath and has a complex left-sided pleural effusion that is going to require surgical attention. Transfer is pending to [facility] for thoracic surgery consultation. He is receiving metoprolol and has very good heart rate control at this time Hiram Bran MD [facility] Subjective Date/time seen: Date of service: 01/10/22 11:54 Interval history: Follow-up visit in this 76-year-old man with: History of permanent atrial fibrillation being managed with rate control. Patient as stated are consult note has chosen to not be anticoagulated and chosen to decline in left atrial appendage occlusion procedure in the past. He now has a complex left pleural effusion that requires surgical attention. He is currently waiting for a bed over at [facility] for thoracic surgery consultation. He feels well today sitting in the bed visiting his family he offers no complaints of any kind Exam Const: General: comfortable and no acute distress Other: Morbidly obese gentleman comfortable cooperative no distress sitting in bedside chair visiting with family HENMT: Mouth: Yes moist mucous membranes Eyes: Sclera: sclerae normal Neck: Neck: supple Other: Cannot assess JVD given his obesity Resp: Effort & Inspection: normal respiratory effort Other: Diminished breath sounds in the left hemithorax Cardio: Rhythm: abnormal rhythm irregularly irregular GI: GI Palp: Yes Soft to palpation Auscultation: normal bowel sounds Skin: General skin exam: normal color Neuro: Other: Alert and oriented x3 Objective Data Vital Signs Vital Signs: Vital Signs - 24 hr 01/09/22 12:00 01/09/22 16:00 01/09/22 12:00 Temperature 36.7 C 36.2 C L Pulse Rate 83 100 81 Respiratory Rate 28 H 16 Blood Pressure 107/85 107/64 Pulse Oximetry 94 97 Oxygen Delivery Oxygen Flow Rate 01/09/22 14:00 01/09/22 16:00 01/09/22 18:00 Temperature Pulse Rate 80 97 95 Respiratory Rate Blood Pressure Pulse Oximetry Oxygen Delivery Oxygen Flow Rate 01/09/22 12:00 01/09/22 16:00 01/09/22 20:00 Temperature 36.6 C Pulse Rate 83 Respiratory Rate 20 Blood Pressure 124/84 Pulse Oximetry 98 97 93 Oxygen Delivery Nasal Cannula Nasal Cannula Oxygen Flow Rate 6 6 01/09/22 21:10 01/09/22 21:46 01/09/22 20:00 Temperature Pulse Rate 94 Respiratory Rate Blood Pressure Pulse Oximetry 95 96 Oxygen Delivery Nasal Cannula Nasal Cannula Oxygen Flow Rate 5 6 01/10/22 00:00 01/10/22 04:00 01/09/22 20:00 Temperature 36.6 C 36.6 C Pulse Rate 79 105 H 97 Respiratory Rate 20 20 Blood Pressure 106/71 138/82 Pulse Oximetry 95 97 Oxygen Delivery Oxygen Flow Rate 01/09/22 22:00 01/10/22 00:00 01/10/22 02:00 Temperature Pulse Rate 103 H 77 81 Respiratory Rate Blood Pressure Pulse Oximetry Oxygen Delivery Oxygen Flow Rate 01/10/22 04:00 01/10/22 06:00 01/10/22 00:00 Temperature Pulse Rate 87 102 H Respiratory Rate Blood Pressure Pulse Oximetry 96 Oxygen Delivery Nasal Cannula Oxygen Flow Rate 6 01/10/22 04:00 01/10/22 08:00 01/10/22 08:00 Temperature 36.4 C L Pulse Rate 91 91 Respiratory Rate 20 20 Blood Pressure 120/74 Pulse Oximetry 96 96 96 Oxygen Delivery Nasal Cannula Nasal Cannula Oxygen Flow Rate 6 4 01/10/22 09:29 01/10/22 08:00 01/10/22 10:00 Temperature Pulse Rate 112 H 103 H 86 Respiratory Rate Blood Pressure Pulse Oximetry Oxygen Delivery Oxygen Flow Rate Inta
--- NOTE | 2022-01-10 12:43 | PM.IMPN ---
Progress Note: A&P Assessment and Plan (1) Pleural effusion on left: Code(s): J90 - Pleural effusion, not elsewhere classified Status: Acute Assessment and Plan: -new Status post thoracentesis 01/08/2022. 700 mL recovered. Pulmonary consult On Rocephin and azithromycin Post tap CT with local to pleural effusion PH on the pleural fluid analysis low suggestive of complicated pleural effusion/empyema Antibiotics switched to vancomycin Primaxin and Levaquin Needs VATS like CT surgery Discussed [facility] hospitalist team and excepted it this facility awaiting bed placement. (2) Acute on chronic diastolic (congestive) heart failure: Code(s): I50.33 - Acute on chronic diastolic (congestive) heart failure Status: Acute Assessment and Plan: -continue with lisinopril and monitor BMP -continue with IV Lasix. -continue with metoprolol. -cardiology has been consulted and has already seen the patient. -echo 01/09/2022 with EF 60-65%, no pulmonary hypertension (3) Obstructive sleep apnea: Code(s): G47.33 - Obstructive sleep apnea (adult) (pediatric) Status: Acute Assessment and Plan: -continue with home settings for CPAP (4) Chronic respiratory failure with hypoxia and hypercapnia: Code(s): J96.11 - Chronic respiratory failure with hypoxia; J96.12 - Chronic respiratory failure with hypercapnia Status: Acute Assessment and Plan: Pulmonary consulted -the patient stated that he has sleep apnea and had is having difficulty with his CPAP machine. Sometimes he cannot tolerated for more than 4 5 hours. -The patient wears oxygen at 2-3 L typically but he increased it himself to 4 -5 this past week. (5) Atrial fibrillation: Code(s): I48.91 - Unspecified atrial fibrillation Status: Acute Assessment and Plan: -patient is no longer on anticoagulation due to hematuria another bleeding problems. -the patient is in atrial fibrillation today but is rate controlled. -continue with metoprolol. (6) Acute on chronic combined systolic (congestive) and diastolic (congestive) heart failure: Code(s): I50.43 - Acute on chronic combined systolic (congestive) and diastolic (congestive) heart failure Status: Acute Assessment and Plan: -continue with IV Lasix -continue with metoprolol -contine with lisinopril (7) Pneumonia: Qualifiers: Pneumonia type: due to unspecified organism Laterality: bilateral Lung location: lower lobe of lung Qualified Code(s): J18.9 - Pneumonia, unspecified organism Code(s): J18.9 - Pneumonia, unspecified organism Status: Acute Assessment and Plan: -Continue with azithromycin Rocephin. -blood and sputum cultures are pending. Switch antibiotic to vancomycin Primaxin and Levaquin. WBC count improved (8) BPH (benign prostatic hyperplasia): Code(s): N40.0 - Benign prostatic hyperplasia without lower urinary tract symptoms Status: Acute Assessment and Plan: -continue with finasteride (9) Hypertension: Code(s): I10 - Essential (primary) hypertension Status: Chronic Assessment and Plan: -continue metoprolol -continue with lisinopril -continue with felodipine (10) Hyperlipidemia: Code(s): E78.5 - Hyperlipidemia, unspecified Status: Chronic Assessment and Plan: -Continue with atorvastatin (11) Hypothyroidism: Code(s): E03.9 - Hypothyroidism, unspecified Status: Acute Assessment and Plan: -continue levothyroxine -continue with levothyroxine. Time Spent With Patient Time: Stable to improved. Still has persistent left pleural effusion. Awaiting transfer to [facility]. Subjective Date/time seen: 01/10/22 12:43 Interval history: This is a 76-year-old male patient to wears oxygen at home.? He came to the emergency room with complaints of shortness of breath.? He does have a history of CHF.? Over
[2022-01-11] VITALS (20 sets, daily range): BP systolic 95–123; BP diastolic 49–73; PULSE 69–92; RESP 22–26; TEMP 36.3–36.9; O2SAT 92–98
[2022-01-11 04:18] LABS: Basophils Percent Auto 0.3 % (0.2-1.2); Eosinophils Absolute Auto 0.2 K/mm3 (0-0.3); Eosinophils Percent Auto 2.1 % (0-4.4); Hematocrit 39.3 % (42.0-52.0); Hemoglobin 12.1 g/dL (14.0-18.0); Immature Granulocyte Absolute 0.06 K/mm3 (0.00-0.031); Immature Granulocyte Percent A 0.6 % (0-0.5); Lymphocytes Absolute Auto 2.15 K/mm3 (0.9-3.2); Lymphocytes Percent Auto 20.3 % (18.3-44.2); Mean Corpuscular HGB Conc 30.8 g/dl (32-36); Mean Corpuscular Hemoglobin 28.9 pg (26-34); Mean Corpuscular Volume 93.8 fl (80-100); Mean Platelet Volume 9.8 fl (7.4-10.4); Monocytes Absolute Auto 1.4 K/mm3 (0.1-0.6); Monocytes Percent Auto 12.8 % (2.6-8.5); Neutrophils Absolute Auto 6.8 K/mm3 (1.3-6.7); Neutrophils Percent Auto 63.9 % (45.5-73.1); Platelet Count Result 332 k/mm3 (150-375); Red Blood Count 4.19 M/mm3 (4.6-6.20); Red Cell Distribution Width 13.5 % (11.5-14.5); White Blood Count 10.6 K/mm3 (4.5-10.0)
[2022-01-11 04:42] LABS: Alanine Aminotransferase 32 U/L (6-50); Albumin Level 3.2 g/dL (3.5-5.1); Alkaline Phosphatase 76 U/L (38-126); Anion Gap 9 mmol/L (8-16); Aspartate Amino Transferase 33 U/L (17-59); Bilirubin,Total 0.5 mg/dL (0.2-1.3); Blood Urea Nitrogen 31 mg/dL (9-20); Calcium 8.2 mg/dL (8.4-10.2); Carbon Dioxide 39 mmol/L (22-30); Chloride 93 mmol/L (98-107); Estimated CRCL calculation 64 ml/min; Estimated Glomerular Filt Rate 49; Glucose 152 mg/dL (65-110); Magnesium 2.1 mg/dL (1.6-2.3); Sodium 141 mmol/L (137-145)
[2022-01-11] MEDS: LEVOTHYROXINE SODIUM 112 MCG TABLET PO (06:04)
--- NOTE | 2022-01-11 08:56 | PM.PNCARD ---
Progress Note: A&P Assessment and Plan (1) Hx of atrial fibrillation, no current medication: Code(s): Z86.79 - Personal history of other diseases of the circulatory system Status: Chronic Plan 76-year-old man with chronic atrial fibrillation rate control is very good. No other cardiovascular issues at this time he is awaiting transfer to [facility] for thoracic surgical consultation Hiram Bran MD [facility] Subjective Date/time seen: Date of service: 01/11/22 08:56 Interval history: Follow-up visit in this 76-year-old man with: Chronic atrial fibrillation being managed with rate control. Patient now hospitalized with dyspnea and has a large complex left pleural effusion which needs surgical attention. He is still awaiting transfer to [facility] for thoracic surgical consultation Exam Const: General: comfortable and no acute distress Other: Morbidly obese gentleman sleeping flat in bed in the left lateral decubitus position. Upon awakening has no complaints HENMT: Mouth: Yes moist mucous membranes Eyes: Sclera: sclerae normal Neck: Neck: supple Other: Cannot assess JVD given his obesity Resp: Effort & Inspection: normal respiratory effort Auscultation: diminished lung sounds Other: Diminished breath sounds in the left hemithorax Cardio: Rate: regular rate and tachycardic Rhythm: abnormal rhythm irregularly irregular Heart sounds: no murmurs GI: Auscultation: normal bowel sounds Other: obese abdomen Skin: General skin exam: normal color Neuro: Speech: normal speech Other: Alert and oriented x3 Extrem: General: no edema Psych: Mental Status: mental status grossly normal Objective Data Vital Signs Vital Signs: Vital Signs - 24 hr 01/10/22 09:29 01/10/22 10:00 01/10/22 12:00 Temperature 36.3 C L Pulse Rate 112 H 86 69 Respiratory Rate 18 Blood Pressure 95/62 L Pulse Oximetry 95 Oxygen Delivery Oxygen Flow Rate Fraction of Inspired Oxygen 01/10/22 12:00 01/10/22 12:00 01/10/22 14:00 Temperature Pulse Rate 69 78 92 Respiratory Rate 18 Blood Pressure Pulse Oximetry 95 Oxygen Delivery Nasal Cannula Oxygen Flow Rate 4 Fraction of Inspired Oxygen 01/10/22 16:00 01/10/22 16:00 01/10/22 16:00 Temperature 36.6 C Pulse Rate 91 91 91 Respiratory Rate 18 22 H Blood Pressure 122/75 Pulse Oximetry 95 95 Oxygen Delivery Nasal Cannula Oxygen Flow Rate 4 Fraction of Inspired Oxygen 01/10/22 18:00 01/10/22 20:00 01/10/22 20:00 Temperature 36.8 C Pulse Rate 103 H 95 Respiratory Rate 22 H Blood Pressure 119/73 Pulse Oximetry 98 98 Oxygen Delivery Nasal Cannula Oxygen Flow Rate 6 Fraction of Inspired Oxygen 01/10/22 20:00 01/10/22 23:53 01/11/22 00:00 Temperature 36.4 C L Pulse Rate 97 82 Respiratory Rate 22 H Blood Pressure 121/76 Pulse Oximetry 92 92 Oxygen Delivery BiPAP Oxygen Flow Rate Fraction of Inspired Oxygen 36 01/10/22 22:00 01/11/22 00:00 01/11/22 02:00 Temperature Pulse Rate 75 82 77 Respiratory Rate Blood Pressure Pulse Oximetry Oxygen Delivery Oxygen Flow Rate Fraction of Inspired Oxygen 01/10/22 23:10 01/11/22 04:00 01/11/22 04:00 Temperature 36.8 C Pulse Rate 81 75 79 Respiratory Rate 28 H 24 H Blood Pressure 115/73 Pulse Oximetry 94 98 Oxygen Delivery BiPAP Oxygen Flow Rate Fraction of Inspired Oxygen 01/11/22 04:00 01/11/22 04:00 01/11/22 05:45 Temperature Pulse Rate 78 80 Respiratory Rate 25 H 23 H Blood Pressure Pulse Oximetry 98 94 92 Oxygen Delivery BiPAP BiPAP BiPAP Oxygen Flow Rate Fraction of Inspired Oxygen 36 01/11/22 06:00 01/11/22 08:15 Temperature 36.9 C Pulse Rate 81 84 Respiratory Rate 26 H Blood Pressure 109/56 L Pulse Oximetry 93 Oxygen Delivery Oxygen Flow Rate Fraction of Inspired Oxygen Intake/Output Intake/Output: Intake & O
[2022-01-11] MEDS: FINASTERIDE 5 MG TABLET PO (09:23)
[2022-01-11] MEDS: METOPROLOL TARTRATE 50 MG TAB 100 MG PO ×2 (09:23→20:34)
[2022-01-11] MEDS: ATORVASTATIN 40 MG TABLET PO (09:23)
[2022-01-11] MEDS: FELODIPINE 5 MG TAB CR PO (09:23)
[2022-01-11] MEDS: lisinopriL 20 MG TABLET 40 MG PO (09:23)
[2022-01-11] MEDS: FUROSEMIDE INJ 40 MG/4 ML VIAL IV PUSH (09:23)
[2022-01-11] MEDS: ASPIRIN 325 MG TABLET PO (09:23)
[2022-01-11] MEDS: TOLNAFTATE 1% POWDER 45 GM BTL 1 APPLIC TOPICAL ×2 (09:24→20:34)
[2022-01-11 16:33] LABS: Vancomycin Trough 14.9 ug/mL (10.0-20.0)
[2022-01-11 19:21] LABS: Amylase, Pleural Fluid 17 U/L
[2022-01-12] VITALS (10 sets, daily range): BP systolic 90–138; BP diastolic 60–75; PULSE 70–105; RESP 20–28; TEMP 36.3–36.4; O2SAT 92–96
--- NOTE | 2022-01-12 05:16 | PC.NURSE ---
[facility] called for patient update. Still no beds available at this time.
[2022-01-12] MEDS: LEVOTHYROXINE SODIUM 112 MCG TABLET PO (05:30)
--- NOTE | 2022-01-12 06:42 | PC.NURSE ---
I reviewed the License Pending Armida ROACH's documentation and agree with the findings.
--- NOTE | 2022-01-12 08:26 | PM.PNCARD ---
Progress Note: A&P Assessment and Plan (1) Atrial fibrillation: Code(s): I48.91 - Unspecified atrial fibrillation Status: Acute Plan 76-year-old man with chronic atrial fibrillation being managed with rate control. Patient has chosen not to be anticoagulated and has chosen to decline left atrial appendage occlusion procedure. He has a large complex loculated left pleural effusion which needs to be drained surgically. Still waiting for a bed at [facility] Hiram Bran MD [facility] Subjective Date/time seen: Date of service: 01/12/22 08:26 Interval history: Follow-up visit in this 76-year-old man with: Chronic atrial fibrillation being managed with rate control. Patient now hospitalized with dyspnea and has a large complex left pleural effusion which needs surgical attention. He is still awaiting transfer to [facility] for thoracic surgical consultation 01/12/2022: Patient asymptomatic with rate controlled atrial fib. Still waiting for a bed at [facility]. No active cardiac issues Exam Const: General: comfortable and no acute distress Other: Morbidly obese gentleman sleeping flat in bed in the left lateral decubitus position. Upon awakening has no complaints HENMT: Mouth: Yes moist mucous membranes Eyes: Sclera: sclerae normal Neck: Neck: supple Other: Cannot assess JVD given his obesity Resp: Effort & Inspection: normal respiratory effort Auscultation: diminished lung sounds Other: Diminished breath sounds in the left hemithorax Cardio: Rate: regular rate and tachycardic Rhythm: abnormal rhythm irregularly irregular Heart sounds: no murmurs GI: Auscultation: normal bowel sounds Other: obese abdomen Skin: General skin exam: normal color Neuro: Speech: normal speech Other: Alert and oriented x3 Extrem: General: no edema Psych: Mental Status: mental status grossly normal Objective Data Vital Signs Vital Signs: Vital Signs - 24 hr 01/11/22 08:57 01/11/22 09:23 01/11/22 10:00 Temperature Pulse Rate 90 92 Respiratory Rate Blood Pressure Pulse Oximetry 93 Oxygen Delivery Nasal Cannula Oxygen Flow Rate 3.5 01/11/22 12:14 01/11/22 12:00 01/11/22 12:00 Temperature 36.6 C Pulse Rate 71 76 Respiratory Rate 22 H Blood Pressure 95/49 L Pulse Oximetry 93 93 Oxygen Delivery Nasal Cannula Oxygen Flow Rate 4 01/11/22 14:00 01/11/22 16:00 10/08/22 17:39 Temperature 36.3 C L Pulse Rate 77 82 88 Respiratory Rate 23 H Blood Pressure 108/68 Pulse Oximetry 94 Oxygen Delivery Oxygen Flow Rate 01/11/22 18:00 01/11/22 16:00 01/11/22 20:00 Temperature 36.6 C Pulse Rate 85 85 Respiratory Rate 24 H Blood Pressure 123/64 Pulse Oximetry 94 94 Oxygen Delivery Nasal Cannula Oxygen Flow Rate 4 01/11/22 20:34 01/11/22 20:00 01/11/22 22:00 Temperature Pulse Rate 90 89 74 Respiratory Rate Blood Pressure Pulse Oximetry Oxygen Delivery Oxygen Flow Rate 01/11/22 23:11 01/12/22 00:00 01/12/22 01:56 Temperature 36.4 C Pulse Rate 69 76 79 Respiratory Rate 22 H Blood Pressure 112/71 Pulse Oximetry 95 Oxygen Delivery Oxygen Flow Rate 01/12/22 03:31 01/12/22 04:00 01/12/22 04:00 Temperature 36.4 C Pulse Rate 83 86 Respiratory Rate 20 Blood Pressure 120/71 Pulse Oximetry 96 92 Oxygen Delivery Nasal Cannula Oxygen Flow Rate 4 01/12/22 05:43 Temperature Pulse Rate 84 Respiratory Rate Blood Pressure Pulse Oximetry Oxygen Delivery Oxygen Flow Rate Intake/Output Intake/Output: Intake & Output 01/09/22 01/10/22 01/11/22 01/12/22 23:59 23:59 23:59 23:59 Intake Total 1470 2660 1510 700 Output Total 1100 2751 1650 800 Balance 370 -91 -140 -100 Meds/Results Medications: Active Medications Generic Name Dose Route Start Last Admin Trade Name Freq PRN Reason Stop Dose Admin Acetaminophen 1,000 mg 01/09/22 17:37
[2022-01-12] MEDS: FINASTERIDE 5 MG TABLET PO (08:28)
[2022-01-12] MEDS: ASPIRIN 325 MG TABLET PO (08:28)
[2022-01-12] MEDS: lisinopriL 20 MG TABLET 40 MG PO (08:28)
[2022-01-12] MEDS: FUROSEMIDE INJ 40 MG/4 ML VIAL IV PUSH (08:28)
[2022-01-12] MEDS: FELODIPINE 5 MG TAB CR PO (08:28)
[2022-01-12] MEDS: ATORVASTATIN 40 MG TABLET PO (08:28)
[2022-01-12] MEDS: METOPROLOL TARTRATE 50 MG TAB 100 MG PO (08:28)
[2022-01-12] MEDS: TOLNAFTATE 1% POWDER 45 GM BTL 1 APPLIC TOPICAL (08:29)
[2022-01-12 09:37] LABS: Basophils Absolute Auto 0.1 K/mm3 (0.0-0.1); Basophils Percent Auto 0.5 % (0.2-1.2); Eosinophils Absolute Auto 0.3 K/mm3 (0-0.3); Eosinophils Percent Auto 2.5 % (0-4.4); Hematocrit 41.6 % (42.0-52.0); Hemoglobin 12.8 g/dL (14.0-18.0); Immature Granulocyte Absolute 0.08 K/mm3 (0.00-0.031); Immature Granulocyte Percent A 0.7 % (0-0.5); Lymphocytes Absolute Auto 1.85 K/mm3 (0.9-3.2); Lymphocytes Percent Auto 15.1 % (18.3-44.2); Mean Corpuscular HGB Conc 30.8 g/dl (32-36); Mean Corpuscular Hemoglobin 28.7 pg (26-34); Mean Corpuscular Volume 93.3 fl (80-100); Mean Platelet Volume 9.8 fl (7.4-10.4); Monocytes Absolute Auto 1.7 K/mm3 (0.1-0.6); Monocytes Percent Auto 13.5 % (2.6-8.5); Neutrophils Absolute Auto 8.3 K/mm3 (1.3-6.7); Neutrophils Percent Auto 67.7 % (45.5-73.1); Platelet Count Result 341 k/mm3 (150-375); Red Blood Count 4.46 M/mm3 (4.6-6.20); Red Cell Distribution Width 13.3 % (11.5-14.5); White Blood Count 12.2 K/mm3 (4.5-10.0)
[2022-01-12 10:11] LABS: Alanine Aminotransferase 29 U/L (6-50); Albumin Level 3.6 g/dL (3.5-5.1); Alkaline Phosphatase 83 U/L (38-126); Aspartate Amino Transferase 35 U/L (17-59); Bilirubin,Total 0.6 mg/dL (0.2-1.3); Blood Urea Nitrogen 29 mg/dL (9-20); Calcium 8.4 mg/dL (8.4-10.2); Carbon Dioxide > 40 mmol/L (22-30); Chloride 90 mmol/L (98-107); Estimated CRCL calculation 60 ml/min; Estimated Glomerular Filt Rate 46; Glucose 151 mg/dL (65-110); Sodium 141 mmol/L (137-145)
--- NOTE | 2022-01-12 13:02 | PM.TDS ---
Transfer Discharge Sum: Prov Provider Date of admission: 01/08/22 20:14 Primary care physician: Mina Liao PA-C Admitting clinician: Darvin Rob MD Consults: 01/08/22 Consult to Physician Routine Comment: Consulting Provider: Angie Trivedi Reason for consultation: CHF Has provider been notified: Yes Consult to Physician Routine Comment: Consulting Provider: Hiram Rios call center associate/MD group to consult: pulmonary Reason for consultation: effusion Has provider been notified: Yes DS: Admitting Diagnosis Discharge Date 01/12/2022 Admitting Diagnosis Shortness of breath DS: Discharge Diagnosis Discharge Diagnosis (1) Pleural effusion on left: Code(s): J90 - Pleural effusion, not elsewhere classified Status: Acute (2) Acute on chronic diastolic (congestive) heart failure: Code(s): I50.33 - Acute on chronic diastolic (congestive) heart failure Status: Acute (3) Obstructive sleep apnea: Code(s): G47.33 - Obstructive sleep apnea (adult) (pediatric) Status: Acute (4) Chronic respiratory failure with hypoxia and hypercapnia: Code(s): J96.11 - Chronic respiratory failure with hypoxia; J96.12 - Chronic respiratory failure with hypercapnia Status: Acute (5) Atrial fibrillation: Code(s): I48.91 - Unspecified atrial fibrillation Status: Acute (6) Acute on chronic combined systolic (congestive) and diastolic (congestive) heart failure: Code(s): I50.43 - Acute on chronic combined systolic (congestive) and diastolic (congestive) heart failure Status: Acute (7) Pneumonia: Qualifiers: Pneumonia type: due to unspecified organism Laterality: bilateral Lung location: lower lobe of lung Qualified Code(s): J18.9 - Pneumonia, unspecified organism Code(s): J18.9 - Pneumonia, unspecified organism Status: Acute (8) BPH (benign prostatic hyperplasia): Code(s): N40.0 - Benign prostatic hyperplasia without lower urinary tract symptoms Status: Acute (9) Hypertension: Code(s): I10 - Essential (primary) hypertension Status: Chronic (10) Hyperlipidemia: Code(s): E78.5 - Hyperlipidemia, unspecified Status: Chronic (11) Hypothyroidism: Code(s): E03.9 - Hypothyroidism, unspecified Status: Acute Transfer Discharge Sum: Med Medications Active and Home Medications: Home Medications finasteride 5 mg tablet 5 mg PO DAILY 03/16/19 [History Confirmed 01/08/22] metoprolol tartrate 50 mg tablet 50 mg PO BID #180 tabs 06/09/21 [Rx Confirmed 01/08/22] lisinopril 40 mg tablet 40 mg PO DAILY #90 tabs 06/11/21 [Rx Confirmed 01/08/22] aspirin 325 mg tablet 325 mg PO DAILY 06/18/21 [History Confirmed 01/08/22] felodipine 5 mg tablet,extended release 24 hr 5 mg PO DAILY #90 tabs 09/07/21 [Rx Confirmed 01/08/22] atorvastatin 40 mg tablet 40 mg PO DAILY #90 tabs 10/30/21 [Rx Confirmed 01/08/22] levothyroxine 112 mcg tablet 112 mcg PO DAILY #90 tabs 11/08/21 [Rx Confirmed 01/08/22] furosemide 20 mg tablet 20 mg PO DAILY 01/08/22 [History Confirmed 01/08/22] Active Medications Acetaminophen (Acetaminophen 500 Mg Tablet) 1,000 mg PO TID PRN PRN Reason: Mild Pain (1-3) or Fever Last Admin: 01/09/22 18:22 Dose: 1,000 mg Aspirin (Aspirin 325 Mg Tablet) 325 mg PO DAILY [facility] Last Admin: 01/12/22 08:28 Dose: 325 mg Atorvastatin Calcium (Atorvastatin 40 Mg Tablet) 40 mg PO DAILY [facility] Last Admin: 01/12/22 08:28 Dose: 40 mg Felodipine (Felodipine 5 Mg Tab Cr) 5 mg PO DAILY [facility] Last Admin: 01/12/22 08:28 Dose: 5 mg Finasteride (Finasteride 5 Mg Tablet) 5 mg PO DAILY [facility] Last Admin: 01/12/22 08:28 Dose: 5 mg Furosemide (Furosemide Inj 40 Mg/4 Ml Vial) 40 mg IV PUSH DAILY [facility] Last Admin: 01/12/22 08:28 Dose: 40 mg Imipenem/Cilastatin Sodium (Primaxin 500 Mg/Ns 100 Ml) 500 mg in 100 mls @ 300 mls/hr IVPB Q6HR [facility] Last Infusion: 01/12/22 12:13 Dose
--- NOTE | 2022-01-12 13:26 | PC.NURSE ---
Bed accepted with [facility]. Report called to MARLEY Michelle with [facility] at 1312.
[2022-01-12 20:11] LABS: Total Protein Pleural Fluid 4.4 g/dL
[2022-01-12 20:25] LABS: Glucose Pleural Fluid 165 mg/dL
== END 2022-01-12 14:48 | disposition short-term general hospital (02) | DRG 186 ==
LOC: ANHED 12:56 → ANHIMU 17:11
PROVIDERS: Nurse Practitioner; Admitting Provider Internal Medicine; Emergency Provider Emergency Medicine; PCP Physician Assistant; Visit Provider Internal Medicine
DX: J90 Pleural effusion, not elsewhere classified (principal); I50.43 Acute on chronic combined systolic (congestive) and diastolic (congestive) heart failure; J18.9 Pneumonia, unspecified organism; J96.22 Acute and chronic respiratory failure with hypercapnia; J96.21 Acute and chronic respiratory failure with hypoxia; J96.11 Chronic respiratory failure with hypoxia; Z68.41 Body mass index [BMI] 40.0-44.9, adult; I48.20 Chronic atrial fibrillation, unspecified; I11.0 Hypertensive heart disease with heart failure; Z20.822 Contact with and (suspected) exposure to COVID-19; E66.01 Morbid (severe) obesity due to excess calories; N40.0 Benign prostatic hyperplasia without lower urinary tract symptoms; E78.5 Hyperlipidemia, unspecified; G47.33 Obstructive sleep apnea (adult) (pediatric); E03.9 Hypothyroidism, unspecified; Z79.82 Long term (current) use of aspirin; Z99.81 Dependence on supplemental oxygen; Z87.891 Personal history of nicotine dependence; Z86.73 Personal history of transient ischemic attack (TIA), and cerebral infarction without residual deficits; Z85.89 Personal history of malignant neoplasm of other organs and systems; Z85.51 Personal history of malignant neoplasm of bladder
CPT/HCPCS: 32555; 36415; 36600; 71045; 71275; 80053; 80202; 82150; 82375; 82805; 82945; 83050; 83605; 83615; 83735; 83880; 83986; 84157; 84443; 84478; 84484; 85025; 85610; 85730; 87015; 87040; 87102; 87116; 87206; 88108; 88305; 89051; 93005; 93970; 94002; 94003; 96365; 96367; 96375; 99291; A9270; C8929; C9803; J0456; J0696; J0743; J1940; J1956; J3370; Q9957; Q9967; U0003; U0005

== ENCOUNTER 2022-02-06 06:56 | Outpatient (CLI) | payer MEDICARE, SELFPAY ==
--- NOTE | ~2022-02-06 | XR_ITS ---
EXAMINATION: XR chest 2V DATE: 02/06/2022 07:22 INDICATION: Left pleural effusion TECHNIQUE: PA and lateral views of the chest were obtained. COMPARISON: 01/12/2022 FINDINGS: Hazy airspace opacities in the left mid to lower lung zone with some blunting at the costophrenic and cardiophrenic angles consistent with significant decrease in size of a now small left pleural effusi on. Additional more patchy retrocardiac opacities in the left lower lung zone and at the right lung b ase which could represent associated atelectasis and/or pneumonia. Tiny right pleural effusion. Calci fied pleural plaque along the posterior right hemidiaphragm which suggests a prior exudative effusion which may have been related to a few old right-sided rib fractures. Calcified nodule in the left upp er lung zone consistent with old granulomatous disease. No pneumothorax. Heart size is normal. Modera te thoracic spondylosis with bridging osteophytes at multiple levels consistent with diffuse idiopath ic skeletal hyperostosis (DISH). IMPRESSION: 1. Significant decrease in a now small left pleural effusion. Tiny right pleural effusion. 2. Opacities in the left lower lung zone and along the right lung base which could represent atelecta sis and/or pneumonia. Reviewed, dictated and finalized at location B. IMPRESSION: 1. Significant decrease in a now small left pleural effusion. Tiny right pleura l effusion. 2. Opacities in the left lower lung zone and along the right lung base which co uld represent atelectasis and/or pneumonia.
== END 2022-02-06 06:57 | disposition home or self-care (01) ==
PROVIDERS: PCP Internal Medicine
DX: J90 Pleural effusion, not elsewhere classified (principal); R91.8 Other nonspecific abnormal finding of lung field
CPT/HCPCS: 71046

== ENCOUNTER 2022-03-21 07:02 | Outpatient (CLI) | payer MEDICARE, SELFPAY ==
--- NOTE | ~2022-03-21 | XR_ITS ---
Clinical Indication: Pleural effusion PA and lateral views of the chest: Comparison: 02/06/2022 Findings: Lateral airspace opacity at the left lung base is again present. Probable minimal layering bilateral pleural effusions otherwise.. Cardiomediastinal silhouette is within normal limits. Bones and soft tissues are unremarkable. Impression: Left lateral lung base airspace opacity/consolidation is again present. This could reflect residual l oculated effusion versus other air space disease. Consider additional CT scan to elucidate. Probable minimal layering bilateral pleural effusions and minimal bibasilar pulmonary edema/atelectas is. Reviewed, dictated and finalized at location [] COUNSELOR Impression: Left lateral lung base airspace opacity/consolidation is again present. This co uld reflect residual loculated effusion versus other air space disease. Conside r additional CT scan to elucidate. Probable minimal layering bilateral pleural effusions and minimal bibasilar pul monary edema/atelectasis.
== END 2022-03-21 07:03 | disposition home or self-care (01) ==
PROVIDERS: PCP Internal Medicine; Visit Provider Internal Medicine Pulmonary Disease
DX: J90 Pleural effusion, not elsewhere classified (principal); R91.8 Other nonspecific abnormal finding of lung field
CPT/HCPCS: 71046

== ENCOUNTER 2022-06-29 09:50 | Emergency (ER) | payer MEDICARE, SELFPAY ==
--- NOTE | 2022-06-29 09:58 | ED.GENADULT ---
HPI - General Adult General Chief complaint: Urogenital-Male Stated complaint: FREQUENT URINATION/BACK PAIN/WEAKNESS Source: patient, family and RN notes reviewed History of Present Illness HPI narrative: 76-year-old male presents to urgent care with the daughter and at bedside. Patient states for the last 3-4 days he has been having pain lower back pain that worsens standing straight up and walking. Patient denies any pain radiation. Patient states his pain was worse earlier last week but after his daughter gave him physical therapy, his pain did improve. Patient states he is walking with a walker because his back feels better doing so. Patient reports polyuria yesterday. patient denies any recent illness including fevers, chills, vomiting, diarrhea, chest pain, shortness of breath, dysuria, saddle anesthesia, incontinence of stool or urine or any recent falls or injury. patient does not take any medication for his pain. Some parts of this dictation were generated by voice recognition software and may contain typographical and/or grammatical inaccuracies. Related Data Home Medications Medication Instructions Recorded Confirmed finasteride 5 mg tablet 5 mg PO DAILY 03/16/19 02/04/22 Allergies Allergy/AdvReac Type Severity Reaction Status Date / Time No Known Allergies Allergy Verified 06/29/22 10:03 Review of Systems Review of Systems: CONSTITUTIONAL: Denies fever, chills, or sweats. EYES: Denies visual changes, redness, or discharge. ENT: Denies otalgia and sore throat CARDIOVASCULAR: Denies chest pain, palpitations, or edema. RESPIRATORY: Denies cough or dyspnea. GASTROINTESTINAL: Denies abdominal pain, nausea, vomiting, or diarrhea. GENITOURINARY: Denies dysuria or hematuria. Reports polyuria yesterday. SKIN: Denies rash or itching. MUSCULOSKELETAL: lower back pain, worse with walking and standing straight up. NEUROLOGIC: Denies headache, numbness, or weakness. Pertinent positives per HPI. [facility] Past Medical History Medical History Acute on chronic combined systolic (congestive) and diastolic (congestive) heart failure BPH (benign prostatic hyperplasia) Congestive heart failure CVA (cerebral vascular accident) History of throat cancer Hx of atrial fibrillation, no current medication Hx of bladder cancer Hyperlipidemia Hypertension Hypothyroidism Obesity Surgical History Surgical History H/O knee surgery telly History of bladder surgery History of removal of pigmented skin lesion History of throat surgery S/P TURP Family History Family History Sibling Family history of lung cancer, Onset Age: 62 Family history of malignant neoplasm of breast sister Father Family history of primary malignant neoplasm of liver Social History Social History Social History: The patient lives with his lucille. He states that he has three children . 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 He used to drink heavily when he was younger. Code staus : DNR Smoking packs per day: 1 Smoking cigarettes per day: 20.0 Years smoked: 55 Smoking pack-years: 55.00 Smoking status: Former smoker Second hand tobacco smoke exposure: No Alcohol intake: former Substance use: never Substance use type: does not use Lack of Transportation: No Lack of Food: Never True Current Housing: I Have Housing Concerned About Future Housing: No Difficulty Paying Gas/Electric Bills: No Difficulty Paying for Meds: No Currently Unemployed: No Education: High School Diploma/GED Difficulty w/ Childcare or Family Care: No Living arrangements: with family Spiritual care concerns: No Comments At the time of my signa
[2022-06-29 10:10] VITALS: BP 121/76; PULSE 67; RESP 16; TEMP 36.3; O2SAT 95
== END 2022-06-29 10:43 | disposition home or self-care (01) ==
PROVIDERS: Emergency Provider Nurse Practitioner Family; PCP Internal Medicine
DX: M54.50 Low back pain, unspecified (principal); E78.5 Hyperlipidemia, unspecified; I48.91 Unspecified atrial fibrillation; I11.0 Hypertensive heart disease with heart failure; I50.40 Unspecified combined systolic (congestive) and diastolic (congestive) heart failure; Z86.73 Personal history of transient ischemic attack (TIA), and cerebral infarction without residual deficits; Z85.89 Personal history of malignant neoplasm of other organs and systems; Z87.891 Personal history of nicotine dependence
CPT/HCPCS: 81003; 87086; 99213; G0463

== ENCOUNTER 2022-10-13 09:25 | Outpatient (CLI) | payer MEDICARE, SELFPAY ==
--- NOTE | ~2022-10-13 | CT_ITS ---
CT Scan of the Chest without Contrast: Clinical Indication: Lung cancer screening, personal history of nicotine dependence Technique: Contiguous sections were acquired throughout the chest without intravenous contrast. Dose reduction technique was used on this scan by utilizing automated exposure control and iterative recon struction technique. The dose-length product (DLP) was 555.95 mGy-cm. COMPARISON: 01/08/2022, 10/11/2021 Findings: There is no evidence of any significant mediastinal, hilar or axillary lymphadenopathy. Atherosclerot ic calcifications of the aorta and coronary arteries are noted.. There is no evidence of pleural or pericardial effusion. Calcified right basilar pleural plaque prese nt. There is probable chronic pleural thickening or pleural plaque at the left lung base as well. Calcified left upper lobe granuloma noted. No other pulmonary nodule evident. Images through the upper abdomen reveal no abnormalities. Impression: Lung RADS 2: Benign appearance. 12 month follow-up screening CT advised. Reviewed, dictated and finalized at [facility]. Impression: Lung RADS 2: Benign appearance. 12 month follow-up screening CT advised.
== END 2022-10-13 09:26 | disposition home or self-care (01) ==
PROVIDERS: PCP Internal Medicine; Visit Provider Physician Assistant
DX: Z12.2 Encounter for screening for malignant neoplasm of respiratory organs (principal); Z87.891 Personal history of nicotine dependence
CPT/HCPCS: 71271

== ENCOUNTER 2023-03-27 14:03 | Inpatient (IN) | payer MEDICARE, SELFPAY ==
[2023-03-27] VITALS (17 sets, daily range): BP systolic 123–161; BP diastolic 77–97; PULSE 73–95; RESP 14–23; TEMP 36.4–36.6; O2SAT 96–99; BMI 42.7
--- NOTE | ~2023-03-27 | XR_ITS ---
EXAMINATION: XR knee LT 3V DATE: 03/27/2023 15:47 INDICATION: Left knee pain TECHNIQUE: Three views of the left knee were obtained. COMPARISON: None. FINDINGS: Alignment is normal. No fracture or osteochondral lesion. There is tricompartmental osteoar thritis of the knee, moderate in the medial compartment. No joint effusion/synovitis. Soft tissues a re unremarkable. IMPRESSION: 1. Osteoarthritis without acute osseous abnormality. Reviewed, dictated and finalized at location B. LIFE PHOTOGRAPHER
--- NOTE | ~2023-03-27 | XR_ITS ---
EXAMINATION: XR chest 1V portable INDICATION: History of congestive heart failure TECHNIQUE: Portable AP chest at 1700 hours COMPARISON: 03/21/2022 FINDINGS: Cardiomegaly is noted. There is a mild diffuse interstitial pattern. No pleural effusion or pneumothorax identified. There are healed bilateral rib fractures. IMPRESSION: 1. Cardiomegaly with probable mild pulmonary edema. Reviewed, dictated and finalized at location B. ACK TRIMMER
--- NOTE | ~2023-03-27 | XR_ITS ---
EXAMINATION: XR knee RT 3V DATE: 03/27/2023 15:47 INDICATION: Right knee pain TECHNIQUE: Two views of the right knee were obtained. COMPARISON: None. FINDINGS: Alignment is normal. No fracture or osteochondral lesion. There is tricompartmental osteoar thritis at the knee, moderate in the medial compartment. There is a large knee joint effusion. Soft t issues are unremarkable. IMPRESSION: 1. Large knee joint effusion without acute osseous abnormality. Reviewed, dictated and finalized at location B. BORER
--- NOTE | 2023-03-27 15:13 | ED.LOWEXIN ---
HPI - Extremity Injury (Lower) General Chief Complaint: Extremity Injury, Lower Stated Complaint: knee pain Time Seen by Provider: 03/27/23 15:00 Source: patient and family History of Present Illness HPI Narrative: 77 years old white male came to the ED by ambulance from home with bilateral knee pain mainly on the right side after trying to move from his walker to use a chair, probably twist or bend his right knee suddenly. Causing more pain at the right knee. He denies any trauma or fall Patient is telling me that he could not stand up, and cannot go home because of the severity of pain of the knees bilaterally. Patient has been to rehab in the past and would like to go back. His unable to take care of him. Related Data Home Medications Medication Instructions Recorded Confirmed finasteride 5 mg tablet 5 mg PO DAILY 03/16/19 01/14/23 aspirin 81 mg tablet,delayed 81 mg PO DAILY 07/09/22 01/14/23 release (Adult Low Dose Aspirin) metformin 500 mg tablet,extended mg PO 03/27/23 03/27/23 release 24 hr Allergies Allergy/AdvReac Type Severity Reaction Status Date / Time No Known Allergies Allergy Verified 03/27/23 14:14 Review of Systems Review of Systems: All systems reviewed & are unremarkable except as noted in HPI and below PMFSH Past Medical History Medical History Acute on chronic combined systolic (congestive) and diastolic (congestive) heart failure BPH (benign prostatic hyperplasia) Congestive heart failure CVA (cerebral vascular accident) History of throat cancer Hx of atrial fibrillation, no current medication Hx of bladder cancer Hyperglycemia Hyperlipidemia Hypertension Hypothyroidism Obesity Surgical History Surgical History H/O knee surgery telly History of bladder surgery History of removal of pigmented skin lesion History of throat surgery S/P TURP Family History Family History Sibling Family history of lung cancer, Onset Age: 62 Family history of malignant neoplasm of breast sister Father Family history of primary malignant neoplasm of liver Social History Social History Social History: The patient lives with his lucille. He states that he has three children . 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 He used to drink heavily when he was younger. Code staus : DNR Smoking packs per day: 1 Smoking cigarettes per day: 20.0 Years smoked: 55 Smoking pack-years: 55.00 Smoking status: Former smoker Second hand tobacco smoke exposure: No Alcohol intake: former Substance use: never Substance use type: does not use Lack of Transportation: No Lack of Food: Never True Current Housing: I Have Housing Concerned About Future Housing: No Difficulty Paying Gas/Electric Bills: No Difficulty Paying for Meds: No Currently Unemployed: No Education: High School Diploma/GED Difficulty w/ Childcare or Family Care: No Living arrangements: with family Spiritual care concerns: No Exam Narrative: General appearance: Well-developed, well-nourished , Skin: Normal color Head: Normocephalic, nontraumatic Eyes: Clear conjunctiva ENT: Oropharynx normal, ears normal, nose normal Neck: Supple, nontender Chest and respiratory: Airway patent, no respiratory distress, no accessory muscle use Heart: irregular irregularity Abdomen: Soft, nontender, no organomegaly, quiet bowel sounds Vascular: Normal peripheral pulses, normal capillary refill. Musculoskeletal: swollen right knee, no bruises, limited range of motion, slight diffuse tenderness posteriorly. Left knee showed no swelling, no bruises, no deformity, limited range of motion. Neurologic: Alert and oriented ?3, DRIVER TRAINER is normal as tested, no
[2023-03-27] MEDS: HYDROcodone/acetaminophen (*CRX) 5-325 MG TABLET 1 TAB PO (15:38)
--- NOTE | 2023-03-27 16:39 | ECG_ITS ---
Measurements Intervals [place] Rate: 88 P: DC: 0 QRS: -16 QRSD: 93 T: 0 QT: 367 QTc: 444 Interpretive Statements ATRIAL FIBRILLATION INFERIOR MYOCARDIAL INFARCTION , PROBABLY OLD [40+ ms Q WAVE AND/OR ST/T ABNORMALITY IN II/aVF] COMPARED TO ECG 01/08/2022 12:58:40 MYOCARDIAL INFARCT FINDING NOW PRESENT Electronically Signed On 03-28-2023 8:54:41 [employer] by Marylin Logan M.D.
[2023-03-27 16:58] LABS: Basophils Percent Auto 0.3 % (0.2-1.2); Eosinophils Absolute Auto 0.2 K/mm3 (0-0.3); Eosinophils Percent Auto 2.1 % (0-4.4); Hematocrit 40.1 % (42.0-52.0); Hemoglobin 12.4 g/dL (14.0-18.0); Immature Granulocyte Absolute 0.03 K/mm3 (0.00-0.031); Immature Granulocyte Percent A 0.3 % (0-0.5); Lymphocytes Absolute Auto 1.91 K/mm3 (0.9-3.2); Lymphocytes Percent Auto 19.5 % (18.3-44.2); Mean Corpuscular HGB Conc 30.9 g/dl (32-36); Mean Corpuscular Hemoglobin 27.8 pg (26-34); Mean Corpuscular Volume 89.9 fl (80-100); Monocytes Absolute Auto 1.4 K/mm3 (0.1-0.6); Monocytes Percent Auto 13.9 % (2.6-8.5); Neutrophils Absolute Auto 6.3 K/mm3 (1.3-6.7); Neutrophils Percent Auto 63.9 % (45.5-73.1); Platelet Count Result 266 k/mm3 (150-375); Red Blood Count 4.46 M/mm3 (4.6-6.20); Red Cell Distribution Width 14.3 % (11.5-14.5); White Blood Count 9.8 K/mm3 (4.5-10.0)
[2023-03-27 17:08] LABS: Alanine Aminotransferase 36 U/L (6-50); Albumin Level 3.7 g/dL (3.5-5.1); Alkaline Phosphatase 100 U/L (38-126); Anion Gap 9 mmol/L (8-16); Aspartate Amino Transferase 56 U/L (17-59); Bilirubin,Total 0.8 mg/dL (0.2-1.3); Blood Urea Nitrogen 33 mg/dL (9-20); Carbon Dioxide 29 mmol/L (22-30); Chloride 102 mmol/L (98-107); Estimated Glomerular Filt Rate 54; Glucose 193 mg/dL (65-110); Potassium 4.3 mmol/L (3.4-5.0); Sodium 140 mmol/L (137-145)
[2023-03-27 17:17] LABS: NT Pro B Type Natriuretic Pept 903 pg/mL (19.9-100)
--- NOTE | 2023-03-27 18:21 | PCCCNOTE ---
CC called to the ED to talk with pt about going to rehab. Met with pt and his , they would like pt to go to [facility]. Pt had been there ~a year ago and was pleased with his therapy. Call placed to Armida at [facility] and a referral was made. They do not have any beds today, pt being admitted for possible placement there this weekend, if he qualifies. Pt and , Linda ([phone]), given a list of SNf incase pt does not qualify for [facility]. was very teary and said unable to pay out of pocket for him to go, but she can't lift him, unsure what they will do if he can not be placed at [facility].
--- NOTE | 2023-03-27 19:15 | PC.NURSE ---
Report received from MARLEY Ramos. Assumed care of patient at this time.
--- NOTE | 2023-03-27 19:36 | PC.NURSE ---
Shayy Attempted to call report, was told RN will call back or this RN to call back in a few minutes.
--- NOTE | 2023-03-27 21:13 | PM.IMHP ---
H&P: HPI History of Present Illness Date/Time: 03/27/23 21:13 Chief Complaint: Knee Pain, Reduced Mobility Narrative: 77 y/o M presents here with with knee pain (R worse than L) and reduced mobility with PMH of combined S/D CHF, CVA, throat cancer, AFib, bladder cancer, HLD, HTN, hypothyroidism, knee surgery bilateral. Patient presents here with bilateral knee pain, right worse than left, post-fall on Friday 03/23. Patient states that he was transferring into a chair in his kitchen when his right knee gave out and he fell onto his right hip. Denies head strike or loss of consciousness. Patient had to position himself onto his hands and knees and back himself into a chair to get up. Patient was then able to ambulate with a walker after that fall. However the next day he was unable to ambulate due to the severity of pain in his right knee. Then over the last few days he has also developed increased pain in his left knee. Reports that he has been immobile despite his daughter being a physical therapist who has been working with him daily for the past 3 weeks on mobility. In addition to the knee pain, he reports increased swelling to his bilateral lower extremities that also started around Thursday. Denies any increased shortness of breath or abdominal distension. Now also has redness, tenderness, and weeping from his right haider/calf that worsened in the last 24 hours. Currently denies any chest pain, palpitations, increased shortness of breath, fever, chills, focal weakness, numbness or tingling. Review of Systems Review of Systems: All systems reviewed & are unremarkable except as noted in HPI and below [facility] Past Medical History Medical History Acute on chronic combined systolic (congestive) and diastolic (congestive) heart failure Atrial fibrillation BPH (benign prostatic hyperplasia) Congestive heart failure CVA (cerebral vascular accident) Former cigarette smoker History of throat cancer Hx of bladder cancer Hyperlipidemia Hypertension Hypothyroidism Obesity Obstructive sleep apnea Type 2 diabetes mellitus Surgical History Surgical History H/O knee surgery telly History of bladder surgery History of removal of pigmented skin lesion History of throat surgery S/P TURP Family History Family History Sibling Family history of lung cancer, Onset Age: 62 Family history of malignant neoplasm of breast sister Father Family history of primary malignant neoplasm of liver Social History Social History Social History: The patient lives with his lucille. He states that he has three children . 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 He used to drink heavily when he was younger. Code staus : DNR Smoking packs per day: 1 Smoking cigarettes per day: 20.0 Years smoked: 55 Smoking pack-years: 55.00 Smoking status: Former smoker Second hand tobacco smoke exposure: No Alcohol intake: former Substance use: never Substance use type: does not use Do You Feel Safe in your Home?: Yes Lack of Transportation: No Lack of Food: Never True Current Housing: I Have Housing Concerned About Future Housing: No Difficulty Paying Gas/Electric Bills: No Difficulty Paying for Meds: No Currently Unemployed: No Education: High School Diploma/GED Difficulty w/ Childcare or Family Care: No Living arrangements: with family Spiritual care concerns: No Meds Home Medications and Allergies Home Medications Medication Instructions Recorded Confirmed Type finasteride 5 mg tablet 5 mg PO DAILY 03/16/19 03/27/23 History atorvastatin 40 mg tablet 40 mg PO DAILY #90 tabs 10/30/21 03/27/23 Rx aspirin 81 mg tablet,delayed 81
[2023-03-28] VITALS (7 sets, daily range): BP systolic 135–161; BP diastolic 74–100; PULSE 93–105; RESP 16–20; TEMP 36.4–37.6; O2SAT 95–96
--- NOTE | 2023-03-28 | ECHO_ITS ---
Patient Info Name: Evan Wright Age: 77 years : 1945 Gender: Male Ht: 74 in Wt: 324 lbs BSA: 2.83 m2 HR: 96 bpm BP: 150 / 95 mmHg Heart Rhythm: Sinus Arrhythmia Technical Quality: Good Exam Date: 03/28/2023 8:54 AM Exam Location: Echo Lab Patient Status: Inpatient Admit Date: 03/27/2023 Staff Ordering Physician: Gaby Herzog APRN Director Of Sports Performance: Rosario Orellana RDCS Attending Provider: Nick Linda MD Referring Physician: Rosenda LIZAMA; Exam Type: CA echo doppler color flow Study Info Indications - c/f acute on chronic chf Complete two-dimensional, color flow and Doppler transthoracic echocardiogram is performed. Summary 1. Complete two-dimensional, color flow and Doppler transthoracic echocardiogram is performed. 2. Mild left ventricular enlargement with mild concentric hypertrophy, and sigmoid hypertrophy as well. Overall good left ventricular systolic function with no segmental wall motion abnormalities, ejection fraction 60-65%. Grade 2 diastolic dysfunction is present. 3. Left atrial chamber dimension is moderately enlarged. 4. Mild pulmonary hypertension, estimated pulmonary arterial systolic pressure is 43 mmHg. 5. No significant valve disease. 6. Atrial fibrillation with heart rate in the 90s. Left Ventricle Left ventricular chamber dimension is mildly enlarged. Left ventricular systolic function is normal, estimated at 60-65%. There is mild asymmetric septal increased left ventricular wall thickness. Left ventricular septal wall motion is normal. The left ventricular diastolic function is grade II diastolic dysfunction. Right Ventricle Right ventricular chamber dimension is normal. Right ventricular systolic function is normal. Left Atria Left atrial chamber dimension is moderately enlarged. Right Atria Right atrial chamber dimension is normal. Aortic Valve The aortic valve is trileaflet. There is mild aortic valve sclerosis. There is no aortic valve stenosis. There is no aortic valve regurgitation. Pulmonic Valve The pulmonic valve is normal. There is no pulmonic valve stenosis. There is no pulmonic regurgitation. Mitral Valve The mitral valve has normal leaflets. There is no mitral valve stenosis. There is trace mitral valve regurgitation. Tricuspid Valve The tricuspid valve leaflets are normal. There is no significant tricuspid valve stenosis. There is trace tricuspid valve regurgitation. Mild pulmonary hypertension, estimated pulmonary arterial systolic pressure is 43 mmHg. Pericardium/Pleural The pericardium appears normal. There is no pericardial effusion. Inferior Vena Cava Normal inferior vena cava with >50% collapse upon inspiration consistent with Empty right atrial pressure, 10 mmHg. Aorta The aortic root size at the sinus of Valsalva is normal. The prox ascending aorta size is normal. Left Ventricular Outflow Tract Name Value Normal LVOT 2D LVOT Diameter 2.5 cm LVOT Doppler LVOT Peak Gradient 5 mmHg LVOT Mean Gradient 3 mmHg LVOT VTI 23 cm LVOT VTI/AV VTI Ratio 0.9 LVOT Stroke Volume
[2023-03-28] MEDS: ceFAZolin 1 GM/NS 50 ML 1 GM/50 ML BAG IVPB ×4 (00:12→22:15)
[2023-03-28] MEDS: HYDROcodone/acetaminophen (*CRX) 5-325 MG TABLET 1 TAB PO ×2 (02:22→14:08)
[2023-03-28] MEDS: FUROSEMIDE 40 MG TABLET PO (02:23)
[2023-03-28] MEDS: LEVOTHYROXINE SODIUM 125 MCG TABLET PO (05:35)
[2023-03-28 06:48] LABS: Basophils Absolute Auto 0.1 K/mm3 (0.0-0.1); Basophils Percent Auto 0.5 % (0.2-1.2); Eosinophils Absolute Auto 0.3 K/mm3 (0-0.3); Eosinophils Percent Auto 3.3 % (0-4.4); Hematocrit 39.4 % (42.0-52.0); Hemoglobin 12.6 g/dL (14.0-18.0); Immature Granulocyte Absolute 0.02 K/mm3 (0.00-0.031); Immature Granulocyte Percent A 0.2 % (0-0.5); Lymphocytes Absolute Auto 1.78 K/mm3 (0.9-3.2); Lymphocytes Percent Auto 18.8 % (18.3-44.2); Mean Corpuscular Hemoglobin 27.9 pg (26-34); Mean Corpuscular Volume 87.4 fl (80-100); Mean Platelet Volume 9.9 fl (7.4-10.4); Monocytes Absolute Auto 1.3 K/mm3 (0.1-0.6); Monocytes Percent Auto 13.4 % (2.6-8.5); Neutrophils Absolute Auto 6.1 K/mm3 (1.3-6.7); Neutrophils Percent Auto 63.8 % (45.5-73.1); Platelet Count Result 266 k/mm3 (150-375); Red Blood Count 4.51 M/mm3 (4.6-6.20); Red Cell Distribution Width 14.2 % (11.5-14.5); White Blood Count 9.5 K/mm3 (4.5-10.0)
[2023-03-28 07:20] LABS: Erythrocyte Sedimentation Rate 84 mm/hr (0-20)
[2023-03-28 07:33] LABS: Anion Gap 10 mmol/L (8-16); Blood Urea Nitrogen 28 mg/dL (9-20); CRP 8.2 mg/dL (<1.0); Carbon Dioxide 30 mmol/L (22-30); Chloride 101 mmol/L (98-107); Estimated CRCL calculation 73 ml/min; Estimated Glomerular Filt Rate 59; Glucose 148 mg/dL (65-110); Potassium 3.9 mmol/L (3.4-5.0); Sodium 141 mmol/L (137-145)
[2023-03-28 08:15] LABS: Glucose Point of Care 166 mg/dl (65-105)
[2023-03-28] MEDS: FINASTERIDE 5 MG TABLET PO (09:26)
[2023-03-28] MEDS: FELODIPINE 5 MG TAB CR PO (09:26)
[2023-03-28] MEDS: ASPIRIN 81 MG ENTERIC TABLET PO (09:26)
[2023-03-28] MEDS: FUROSEMIDE 20 MG TABLET PO (09:26)
[2023-03-28] MEDS: ATORVASTATIN 40 MG TABLET PO (09:27)
[2023-03-28] MEDS: METOPROLOL TARTRATE 25 MG TABLET PO ×2 (09:27→22:34)
[2023-03-28 11:36] LABS: Glucose Point of Care 222 mg/dl (65-105)
--- NOTE | 2023-03-28 12:35 | PM.CNOR ---
Assessment and Plan Assessment and plan (1) Cellulitis of leg, right: Code(s): L03.115 - Cellulitis of right lower limb Status: Acute (2) Effusion of knee joint right: Code(s): M25.461 - Effusion, right knee Status: Acute (3) Tricompartment degenerative joint disease of knee: Qualifiers: Laterality: bilateral Qualified Code(s): M17.0 - Bilateral primary osteoarthritis of knee Code(s): M17.10 - Unilateral primary osteoarthritis, unspecified knee Status: Acute Assessment and Plan: GERARDO IS HERE FOR INABILITY TO AMBULATE FROM EXACERBATION OF HIS SEVERE DJD IN MAINLY THE RIGHT KNEE. 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 HE HAS SEVERE DJD AND EFFUSION OF BOTH KNEES. HISTORY, EXAM AND RADIOGRAPHS REVIEWED WITH THE PATIENT. REFERRING PHYSICIAN RECORDS AND IMAGES REVIEWED. CONDITION, NATURE, ETIOLOGY AND COURSE OF NATURAL HISTORY REVIEWED. CONSERVATIVE AND OPERATIVE TREATMENT OPTIONS REVIEWED WELL THE RISKS AND BENEFITS OF EACH. RECOMMEND ASPIRATION AND INJECTION OF BOTH KNEES AND REHAB VS SNF PLACEMENT FOR PT. HE WILL F/U NEEDED IN THE OFFICE. RECOMMEND CONTINUING ANTIBIOTICS AND EDEMA CONTROL OF BILATERAL LOWER EXTREMITIES. THE RISKS OF INJECTION WERE REVIEWED INCLUDING BUT NOT LIMITED TO SKIN COLOR CHANGES, ATROPHY OF THE SOFT TISSUE, TENDON OR SOFT TISSUE RUPTURE, JOINT DEGENERATION, HYPER INFLAMMATORY RESPONSE, ALLERGIC REACTION, CONTINUED PAIN OR DYSFUNCTION. SPECIFIC RISKS OF THE PROCEDURE INCLUDING DEEP INFECTION OR SOFT TISSUE RUPTURE OR RECURRENCE OF SYMPTOMS REVIEWED. NO GUARANTEES WERE OFFERED. THE PATIENT UNDERSTANDS THE NEED FOR POSSIBLE FURTHER TREATMENT. History of Present Illness HPI Consult date: 03/28/23 Consult reason: joint pain Chief complaint: Unable to ambulate w/o assistant golf coach,Rehab Replacement Narrative: GERARDO IS HERE FOR C/O OF BILATERAL KNEE PAIN RIGHT WORSE THAN LEFT. 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 HE RECENTLY HAS HAD MULTIPLE FALLS. HE HAS A HISTORY OF SEVERE DJD BILATERAL KNEES. HIS RECENT FALL WAS A FEW DAYS AGO. HIS DAUGHTER IS A PHYSICAL THERAPIST AND HAS WORKED WITH HIM A LOT. HE WAS DOING WELL WITH A WALKER UNTIL HE HAD A TWISTING INJURY AND FELT THE RIGHT KNEE GIVE WAY. HE FELL TO THE GROUND. HE HAS NO HISTORY OF FRACTURE. HIS CURRENT RADIOGRAPHS SHOW SEVERE DJD BILATERAL KNEES AND NO FRACTURE. HE HAS A LARGE EFFUSION ON THE RIGHT KNEE AND MILD ON THE LEFT. 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 HIS EDEMA IN THE LOWER EXTREMITIES HAS ALSO IMPROVED ACCORDING TO FAMILY. HE DENIES ANY NEW ONSET BACK NECK OR HIP PAIN. HE DENIES ANY UPPER EXTREMITY PAIN. HE DENIES ANY CP SOB OR LOC. [facility] Past Medical History Medical History Acute on chronic combined systolic (congestive) and diastolic (congestive) heart failure Atrial fibrillation BPH (benign prostatic hyperplasia) Congestive heart failure CVA (cerebral vascular accident) Former cigarette smoker History of throat cancer Hx of bladder cancer Hyperlipidemia Hypertension Hypothyroidism Obesity Obstructive sleep apnea Type 2 diabetes mellitus Surgical History Surgical History H/O knee surgery telly History of bladder surgery History of removal of pigmented skin lesion History of throat surgery S/P TURP Family History Family History Sibling Family history of lung cancer, Onset Age: 62 Family history of malignant neoplasm of breast sister Father Family history of primary malignant neoplasm of liver Social History Social History Social History: The patient lives with his lucille. He states that h
[2023-03-28] MEDS: methylPREDNISolone ACETATE 80 MG/ML VIAL IM ×2 (14:07)
[2023-03-28] MEDS: LIDOCAINE HCL 1% LOCAL INJ 10 ML VIAL INFILTRATE (14:07)
--- NOTE | 2023-03-28 14:28 | PM.IMPN ---
Progress Note: A&P Assessment and Plan (1) Effusion of knee joint right: Code(s): M25.461 - Effusion, right knee Status: Acute Assessment and Plan: XR L knee: osteoarthritis without acute osseous abnormality. XR R knee: large knee joint effusion without acute osseous abnormality. Orthopedics consulted, awaiting recs. Will continue pain control in interim. Diagnostic arthrocentesis of R knee ordered. ESR and CRP in AM. started on broad spectrum atb for cellulitis of RLE. 03/28: Vancomycin added for cellulitis (2) Unable to ambulate: Code(s): R26.2 - Difficulty in walking, not elsewhere classified Status: Acute Assessment and Plan: PT and OT eval and treat. Has previously underwent rehab. Not currently able to ambulate with assistive devices. Awaiting further Ortho recommendations. (3) Congestive heart failure: Qualifiers: Heart failure chronicity: unspecified Heart failure type: combined systolic and diastolic Qualified Code(s): I50.40 - Unspecified combined systolic (congestive) and diastolic (congestive) heart failure Code(s): I50.9 - Heart failure, unspecified Status: Acute Assessment and Plan: CXR showed cardiomegaly with probable mild pulmonary edema. BNP 903. Physical exam showed extensive pitting edema to bilateral lower extremities extending to knees. Start daily weights and monitor I&Os. Currently on 20 of Lasix daily. Increase to 40 p.o. daily, assess daily for ability to reduce back to home dose. Continue to monitor renal function and electrolytes. Last echo in 2021, will update. (4) Cellulitis of leg, right: Code(s): L03.115 - Cellulitis of right lower limb Status: Acute Assessment and Plan: May be complicated by acute on chronic congestive heart failure with subsequent edema to bilateral lower extremities. Wound culture ordered. Started on Ancef. Discontinue PAVEL hose on right. 03/28: Vancomycin added. (5) Type 2 diabetes mellitus: Qualifiers: Diabetes mellitus fpc insulin use: without extermination supervisor use Diabetes mellitus complication status: with circulatory complication Code(s): E11.9 - Type 2 diabetes mellitus without complications Status: Acute Assessment and Plan: Hypoglycemia protocol POC blood glucose ACHS home medication resumed/held - metformin held correct regimen ordered - low dose TIDWM and HS A1C ordered (6) Hypothyroidism: Qualifiers: Hypothyroidism type: unspecified Qualified Code(s): E03.9 - Hypothyroidism, unspecified Code(s): E03.9 - Hypothyroidism, unspecified Status: Acute Assessment and Plan: Continue levothyroxine. Update TSH with reflex. Plan Home Meds/Chronic Conditions -HTN: continue metoprolol, felodipine, ASA -HLD: continue statin -BPH: continue proscar Diet: Heart healthy GI Prophylaxis: Not indicated DVT Prophylaxis: Continue Pavel hose on the left lower extremity, discontinue right due to cellulitis. Hold on pharmacological until post arthrocentesis. Lines: pIV Code Status: Full Code Time Spent With Patient Time with patient: 25 - 35 minutes Subjective Date/time seen: 03/28/23 14:28 Interval history: 03/27 H&P: 77 y/o M presents here with with knee pain (R worse than L) and reduced mobility with PMH of combined S/D CHF, CVA, throat cancer, AFib, bladder cancer, HLD, HTN, hypothyroidism, knee surgery bilateral. Patient presents here with bilateral knee pain, right worse than left, post-fall on Friday 03/23.? Patient states that he was transferring into a chair in his kitchen when his right knee gave out and he fell onto his right hip.? Denies head strike or loss of consciousness.? Patient had to position himself onto his hands and knees and back himself into a chair to get up.? Patient was then able to ambulate with a walker after that fall.? However the next day he was unable to ambul
[2023-03-28 16:49] LABS: Glucose Point of Care 187 mg/dl (65-105)
[2023-03-28] MEDS: VANCOMYCIN 1,500 MG/NS 500 ML 1,500 MG/500 ML BAG 175 MG IVPB (18:22)
[2023-03-28 18:48] LABS: Free T4 Free Thyroxine Reflex 1.44 ng/dL (0.78-2.19)
[2023-03-28 18:56] LABS: Hemoglobin A1C 7.2 % (<5.7)
[2023-03-28 20:38] LABS: Glucose Point of Care 281 mg/dl (65-105)
[2023-03-28 23:02] LABS: Total Triiodothyronine (T3) 0.82 NG/ML (0.97-1.69)
[2023-03-29] VITALS (9 sets, daily range): BP systolic 128–156; BP diastolic 45–107; PULSE 60–95; RESP 16–20; TEMP 35.9–36.7; O2SAT 94–97
[2023-03-29] MEDS: ceFAZolin 1 GM/NS 50 ML 1 GM/50 ML BAG IVPB ×3 (05:25→20:12)
[2023-03-29] MEDS: LEVOTHYROXINE SODIUM 125 MCG TABLET PO (05:25)
[2023-03-29] MEDS: METOPROLOL TARTRATE 25 MG TABLET PO ×2 (05:27→20:12)
[2023-03-29] MEDS: FELODIPINE 5 MG TAB CR PO (05:27)
[2023-03-29 06:19] LABS: Basophils Percent Auto 0.2 % (0.2-1.2); Hematocrit 40.9 % (42.0-52.0); Hemoglobin 12.6 g/dL (14.0-18.0); Immature Granulocyte Absolute 0.08 K/mm3 (0.00-0.031); Immature Granulocyte Percent A 0.7 % (0-0.5); Lymphocytes Absolute Auto 1.11 K/mm3 (0.9-3.2); Lymphocytes Percent Auto 9.7 % (18.3-44.2); Mean Corpuscular HGB Conc 30.8 g/dl (32-36); Mean Corpuscular Hemoglobin 27.4 pg (26-34); Mean Corpuscular Volume 88.9 fl (80-100); Mean Platelet Volume 9.9 fl (7.4-10.4); Monocytes Absolute Auto 0.5 K/mm3 (0.1-0.6); Monocytes Percent Auto 3.9 % (2.6-8.5); Neutrophils Absolute Auto 9.8 K/mm3 (1.3-6.7); Neutrophils Percent Auto 85.5 % (45.5-73.1); Platelet Count Result 276 k/mm3 (150-375); Red Cell Distribution Width 13.8 % (11.5-14.5); White Blood Count 11.5 K/mm3 (4.5-10.0)
[2023-03-29 06:49] LABS: Alanine Aminotransferase 41 U/L (6-50); Albumin Level 3.9 g/dL (3.5-5.1); Alkaline Phosphatase 100 U/L (38-126); Anion Gap 8 mmol/L (8-16); Aspartate Amino Transferase 47 U/L (17-59); Bilirubin,Total 0.8 mg/dL (0.2-1.3); Blood Urea Nitrogen 26 mg/dL (9-20); Carbon Dioxide 31 mmol/L (22-30); Chloride 100 mmol/L (98-107); Estimated CRCL calculation 73 ml/min; Estimated Glomerular Filt Rate 59; Glucose 234 mg/dL (65-110); Magnesium 2.1 mg/dL (1.6-2.3); Potassium 4.4 mmol/L (3.4-5.0); Sodium 139 mmol/L (137-145)
[2023-03-29 08:09] LABS: Glucose Point of Care 216 mg/dl (65-105)
[2023-03-29] MEDS: ASPIRIN 81 MG ENTERIC TABLET PO (08:45)
[2023-03-29] MEDS: FINASTERIDE 5 MG TABLET PO (08:45)
[2023-03-29] MEDS: FUROSEMIDE 20 MG TABLET PO (08:45)
[2023-03-29] MEDS: predniSONE 20 MG TABLET 60 MG PO (08:45)
[2023-03-29] MEDS: INSULIN ASPART (*BKC) 100 UNITS/ML SUB-Q (08:46)
[2023-03-29] MEDS: VANCOMYCIN 1,500 MG/NS 500 ML 1,500 MG/500 ML BAG 175 MG IVPB (08:47)
[2023-03-29] MEDS: ATORVASTATIN 40 MG TABLET PO (09:32)
[2023-03-29 11:56] LABS: Glucose Point of Care 261 mg/dl (65-105)
--- NOTE | 2023-03-29 13:37 | PM.IMPN ---
Progress Note: A&P Assessment and Plan (1) Effusion of knee joint right: Code(s): M25.461 - Effusion, right knee Status: Acute Assessment and Plan: XR L knee: osteoarthritis without acute osseous abnormality. XR R knee: large knee joint effusion without acute osseous abnormality. Orthopedics consulted, awaiting recs. Will continue pain control in interim. Diagnostic arthrocentesis of R knee ordered. ESR and CRP in AM. started on broad spectrum atb for cellulitis of RLE. 03/28: Vancomycin added for cellulitis (2) Unable to ambulate: Code(s): R26.2 - Difficulty in walking, not elsewhere classified Status: Acute Assessment and Plan: PT and OT eval and treat. Has previously underwent rehab. Not currently able to ambulate with assistive devices. Awaiting further Ortho recommendations. (3) Congestive heart failure: Qualifiers: Heart failure chronicity: unspecified Heart failure type: combined systolic and diastolic Qualified Code(s): I50.40 - Unspecified combined systolic (congestive) and diastolic (congestive) heart failure Code(s): I50.9 - Heart failure, unspecified Status: Acute Assessment and Plan: CXR showed cardiomegaly with probable mild pulmonary edema. BNP 903. Physical exam showed extensive pitting edema to bilateral lower extremities extending to knees. Start daily weights and monitor I&Os. Currently on 20 of Lasix daily. Increase to 40 p.o. daily, assess daily for ability to reduce back to home dose. Continue to monitor renal function and electrolytes. Last echo in 2021, will update. (4) Cellulitis of leg, right: Code(s): L03.115 - Cellulitis of right lower limb Status: Acute Assessment and Plan: May be complicated by acute on chronic congestive heart failure with subsequent edema to bilateral lower extremities. Wound culture ordered. Started on Ancef. Discontinue PAVEL hose on right. 03/28: Vancomycin added. (5) Type 2 diabetes mellitus: Qualifiers: Diabetes mellitus shelter insulin use: without ferry terminal supervisor use Diabetes mellitus complication status: with circulatory complication Code(s): E11.9 - Type 2 diabetes mellitus without complications Status: Acute Assessment and Plan: Hypoglycemia protocol POC blood glucose ACHS home medication resumed/held - metformin held correction regimen ordered - low dose TIDWM and HS A1C ordered 03/29: nursing reports patient insulin, A1c 7.2 (6) Hypothyroidism: Qualifiers: Hypothyroidism type: unspecified Qualified Code(s): E03.9 - Hypothyroidism, unspecified Code(s): E03.9 - Hypothyroidism, unspecified Status: Acute Assessment and Plan: Continue levothyroxine. Update TSH with reflex. Plan Home Meds/Chronic Conditions -HTN: continue metoprolol, felodipine, ASA -HLD: continue statin -BPH: continue proscar Diet: Heart healthy GI Prophylaxis: Not indicated DVT Prophylaxis: Continue Pavel hose on the left lower extremity, discontinue right due to cellulitis. Hold on pharmacological until post arthrocentesis. Lines: pIV Code Status: Full Code Time Spent With Patient Time with patient: 25 - 35 minutes Subjective Date/time seen: 03/29/23 13:37 Interval history: 03/27 H&P: 77 y/o M presents here with with knee pain (R worse than L) and reduced mobility with PMH of combined S/D CHF, CVA, throat cancer, AFib, bladder cancer, HLD, HTN, hypothyroidism, knee surgery bilateral. Patient presents here with bilateral knee pain, right worse than left, post-fall on Friday 03/23.? Patient states that he was transferring into a chair in his kitchen when his right knee gave out and he fell onto his right hip.? Denies head strike or loss of consciousness.? Patient had to position himself onto his hands and knees and back himself into a chair to get up.? Patient was then able to ambulate with a walker after t
[2023-03-29 16:52] LABS: Glucose Point of Care 314 mg/dl (65-105)
[2023-03-29 22:30] LABS: Glucose Point of Care 260 mg/dl (65-105)
[2023-03-30] VITALS (8 sets, daily range): BP systolic 116–167; BP diastolic 53–90; PULSE 78–92; RESP 16–18; TEMP 36.2–36.8; O2SAT 94–99
[2023-03-30] MEDS: VANCOMYCIN 1,500 MG/NS 500 ML 1,500 MG/500 ML BAG 250 MG IVPB ×2 (02:57→22:19)
[2023-03-30] MEDS: LEVOTHYROXINE SODIUM 125 MCG TABLET PO (05:26)
[2023-03-30] MEDS: ceFAZolin 1 GM/NS 50 ML 1 GM/50 ML BAG IVPB ×3 (06:00→21:29)
[2023-03-30 06:32] LABS: Basophils Percent Auto 0.1 % (0.2-1.2); Hematocrit 39.9 % (42.0-52.0); Hemoglobin 12.5 g/dL (14.0-18.0); Immature Granulocyte Absolute 0.05 K/mm3 (0.00-0.031); Immature Granulocyte Percent A 0.4 % (0-0.5); Lymphocytes Absolute Auto 1.57 K/mm3 (0.9-3.2); Lymphocytes Percent Auto 11.2 % (18.3-44.2); Mean Corpuscular HGB Conc 31.3 g/dl (32-36); Mean Corpuscular Hemoglobin 27.7 pg (26-34); Mean Corpuscular Volume 88.3 fl (80-100); Mean Platelet Volume 9.8 fl (7.4-10.4); Monocytes Percent Auto 7.1 % (2.6-8.5); Neutrophils Absolute Auto 11.4 K/mm3 (1.3-6.7); Neutrophils Percent Auto 81.2 % (45.5-73.1); Platelet Count Result 303 k/mm3 (150-375); Red Blood Count 4.52 M/mm3 (4.6-6.20); Red Cell Distribution Width 13.8 % (11.5-14.5)
[2023-03-30 06:45] LABS: Alanine Aminotransferase 28 U/L (6-50); Albumin Level 3.7 g/dL (3.5-5.1); Alkaline Phosphatase 86 U/L (38-126); Anion Gap 6 mmol/L (8-16); Aspartate Amino Transferase 36 U/L (17-59); Bilirubin,Total 0.6 mg/dL (0.2-1.3); Blood Urea Nitrogen 32 mg/dL (9-20); Calcium 8.9 mg/dL (8.4-10.2); Carbon Dioxide 31 mmol/L (22-30); Chloride 100 mmol/L (98-107); Estimated CRCL calculation 80 ml/min; Estimated Glomerular Filt Rate > 60; Glucose 228 mg/dL (65-110); Magnesium 2.2 mg/dL (1.6-2.3); Potassium 4.3 mmol/L (3.4-5.0); Sodium 137 mmol/L (137-145)
[2023-03-30 08:14] LABS: Glucose Point of Care 203 mg/dl (65-105)
[2023-03-30] MEDS: METOPROLOL TARTRATE 25 MG TABLET PO ×2 (08:37→21:28)
[2023-03-30] MEDS: FINASTERIDE 5 MG TABLET PO (08:37)
[2023-03-30] MEDS: FELODIPINE 5 MG TAB CR PO (08:37)
[2023-03-30] MEDS: ASPIRIN 81 MG ENTERIC TABLET PO (08:37)
[2023-03-30] MEDS: predniSONE 20 MG TABLET 60 MG PO (08:38)
[2023-03-30] MEDS: ATORVASTATIN 40 MG TABLET PO (08:38)
[2023-03-30] MEDS: FUROSEMIDE 20 MG TABLET PO (08:38)
--- NOTE | 2023-03-30 09:47 | PM.DS ---
DS: Admitting Diagnosis Discharge Date 03/30/2023 Admitting Diagnosis effusion right knee, unable to ambulate, congestive heart failure, cellulitis of right leg, type 2 diabetes mellitus, hypothyroidism DS: Discharge Diagnosis Discharge Diagnosis (1) Effusion of knee joint right: Code(s): M25.461 - Effusion, right knee Status: Acute (2) Unable to ambulate: Code(s): R26.2 - Difficulty in walking, not elsewhere classified Status: Acute (3) Congestive heart failure: Qualifiers: Heart failure chronicity: unspecified Heart failure type: combined systolic and diastolic Qualified Code(s): I50.40 - Unspecified combined systolic (congestive) and diastolic (congestive) heart failure Code(s): I50.9 - Heart failure, unspecified Status: Acute (4) Cellulitis of leg, right: Code(s): L03.115 - Cellulitis of right lower limb Status: Acute (5) Type 2 diabetes mellitus: Qualifiers: Diabetes mellitus emt intermediate insulin use: without emt intermediate use Diabetes mellitus complication status: with circulatory complication Code(s): E11.9 - Type 2 diabetes mellitus without complications Status: Acute (6) Hypothyroidism: Qualifiers: Hypothyroidism type: unspecified Qualified Code(s): E03.9 - Hypothyroidism, unspecified Code(s): E03.9 - Hypothyroidism, unspecified Status: Acute DS: Summary Hospital Course Reason for hospitalization: unable to ambulate, bilateral knee effusions Hospital Course: 77 y/o M presents here with with knee pain (R worse than L) and reduced mobility with PMH of combined S/D CHF, CVA, throat cancer, AFib, bladder cancer, HLD, HTN, hypothyroidism, knee surgery bilateral. Patient presents here with bilateral knee pain, right worse than left, post-fall on Friday 03/23.? Patient states that he was transferring into a chair in his kitchen when his right knee gave out and he fell onto his right hip.? Denies head strike or loss of consciousness.? Patient had to position himself onto his hands and knees and back himself into a chair to get up.? Patient was then able to ambulate with a walker after that fall.? However the next day he was unable to ambulate due to the severity of pain in his right knee.? Then over the last few days he has also developed increased pain in his left knee.? Reports that he has been immobile despite his daughter being a physical therapist who has been working with him daily for the past 3 weeks on mobility.? In addition to the knee pain, he reports increased swelling to his bilateral lower extremities that also started around Thursday.? Denies any increased shortness of breath or abdominal distension.? Now also has redness, tenderness, and weeping from his right haider/calf that worsened in the last 24 hours.? Currently denies any chest pain, palpitations, increased shortness of breath, fever, chills, focal weakness, numbness or tingling. 03/28:? Patient reports bilateral leg pain knee pain right worse than left.? Orthopedics has been consulted and Dr. Garber is currently at bedside to perform aspiration bilateral knee effusions and inject steroid into the knee joints.? Patient receiving treatment for right leg cellulitis.? Patient having trouble walking due to pain and has been falling.? Patient denies any other concerns.? PT and OT have ordered.? Likely scenario is acute rehab versus SNF on discharge. 03/29:? Patient reports that the knee joint drainage and injection of steroids has definitely helped.? He is still having difficulty ambulating though and is still anticipating going to rehab upon discharge.? Erythema and swelling the right lower extremity is improving.? Continue IV antibiotics and oral steroids at this time.? The oral steroids are causing his blood sugar to elevate and nursing staff notes that patient is refusing insulin.? He has been instructed that it is only temporary while he is in the hospital but he is st
[2023-03-30 11:48] LABS: Glucose Point of Care 257 mg/dl (65-105)
[2023-03-30 16:44] LABS: Glucose Point of Care 272 mg/dl (65-105)
[2023-03-30 21:08] LABS: Glucose Point of Care 319 mg/dl (65-105)
[2023-03-30 21:47] LABS: Vancomycin Trough 11.2 ug/mL (10.0-20.0)
[2023-03-31 05:45] VITALS: BP 160/98
[2023-03-31] MEDS: LEVOTHYROXINE SODIUM 125 MCG TABLET PO (05:57)
[2023-03-31] MEDS: ceFAZolin 1 GM/NS 50 ML 1 GM/50 ML BAG IVPB (05:58)
[2023-03-31 06:00] VITALS: BP 166/100; PULSE 77; RESP 16; TEMP 36.5; O2SAT 98
[2023-03-31 07:18] LABS: Glucose Point of Care 200 mg/dl (65-105)
[2023-03-31 08:54] VITALS: PULSE 72
[2023-03-31] MEDS: METOPROLOL TARTRATE 25 MG TABLET PO (08:54)
[2023-03-31 08:55] VITALS: O2SAT 98
[2023-03-31] MEDS: FELODIPINE 5 MG TAB CR PO (08:55)
[2023-03-31] MEDS: predniSONE 20 MG TABLET 60 MG PO (08:55)
[2023-03-31] MEDS: FINASTERIDE 5 MG TABLET PO (08:56)
[2023-03-31] MEDS: ATORVASTATIN 40 MG TABLET PO (08:56)
[2023-03-31] MEDS: ASPIRIN 81 MG ENTERIC TABLET PO (08:56)
[2023-03-31] MEDS: FUROSEMIDE 20 MG TABLET PO (08:56)
[2023-03-31 09:21] LABS: Basophils Percent Auto 0.1 % (0.2-1.2); Hematocrit 46.1 % (42.0-52.0); Hemoglobin 14.4 g/dL (14.0-18.0); Immature Granulocyte Absolute 0.12 K/mm3 (0.00-0.031); Immature Granulocyte Percent A 0.8 % (0-0.5); Lymphocytes Absolute Auto 1.85 K/mm3 (0.9-3.2); Lymphocytes Percent Auto 12.7 % (18.3-44.2); Mean Corpuscular HGB Conc 31.2 g/dl (32-36); Mean Corpuscular Hemoglobin 27.5 pg (26-34); Monocytes Percent Auto 6.7 % (2.6-8.5); Neutrophils Absolute Auto 11.6 K/mm3 (1.3-6.7); Neutrophils Percent Auto 79.7 % (45.5-73.1); Platelet Count Result 399 k/mm3 (150-375); Red Blood Count 5.24 M/mm3 (4.6-6.20); Red Cell Distribution Width 13.6 % (11.5-14.5); White Blood Count 14.5 K/mm3 (4.5-10.0)
[2023-03-31 09:36] LABS: Alanine Aminotransferase 26 U/L (6-50); Albumin Level 4.2 g/dL (3.5-5.1); Alkaline Phosphatase 105 U/L (38-126); Anion Gap 10 mmol/L (8-16); Aspartate Amino Transferase 32 U/L (17-59); Bilirubin,Total 0.7 mg/dL (0.2-1.3); Blood Urea Nitrogen 32 mg/dL (9-20); Calcium 9.5 mg/dL (8.4-10.2); Carbon Dioxide 33 mmol/L (22-30); Chloride 95 mmol/L (98-107); Estimated CRCL calculation 81 ml/min; Estimated Glomerular Filt Rate > 60; Glucose 272 mg/dL (65-110); Magnesium 2.3 mg/dL (1.6-2.3); Potassium 4.2 mmol/L (3.4-5.0); Sodium 138 mmol/L (137-145)
[2023-03-31 11:22] LABS: Glucose Point of Care 253 mg/dl (65-105)
--- NOTE | 2023-03-31 13:34 | PM.DS ---
DS: Summary Time Spent with Patient Time attestation: Total time spent providing and/or coordinating discharge services: DS: Data Data Completed and Pending Labs on day of discharge: Labs from last 24 hours 03/31/23 03/31/23 03/31/23 11:18 09:02 07:14 WBC 14.5 H RBC 5.24 Hgb 14.4 Hct 46.1 MCV 88.0 MCH 27.5 MCHC 31.2 L RDW 13.6 Plt Count 399 H MPV 10.0 Immature Gran % (Auto) 0.8 H Neut % (Auto) 79.7 H Lymph % (Auto) 12.7 L [place] % (Auto) 6.7 Eos % (Auto) 0.0 Baso % (Auto) 0.1 L Lymph # (Auto) 1.85 [place] # (Auto) 1.0 H Eos # (Auto) 0.0 Baso # (Auto) 0.0 Abs Immat Gran (auto) 0.12 H Absolute Neuts (auto) 11.6 H Absolute Nucleated RBC 0.0 Nucleated RBC % 0.0 Sodium 138 Potassium 4.2 Chloride 95 L Carbon Dioxide 33 H Anion Gap 10 BUN 32 H Creatinine 1.10 Estim Creat Clear Calc 81 Estimated GFR > 60 Glucose 272 H POC Capillary Glucose 253 H 200 H Calcium 9.5 Magnesium 2.3 Total Bilirubin 0.7 AST 32 ALT 26 Alkaline Phosphatase 105 Total Protein 8.0 Albumin 4.2 Vancomycin Trough 03/30/23 03/30/23 03/30/23 21:05 20:41 16:40 WBC RBC Hgb Hct MCV MCH MCHC RDW Plt Count MPV Immature Gran % (Auto) Neut % (Auto) Lymph % (Auto) [place] % (Auto) Eos % (Auto) Baso % (Auto) Lymph # (Auto) [place] # (Auto) Eos # (Auto) Baso # (Auto) Abs Immat Gran (auto) Absolute Neuts (auto) Absolute Nucleated RBC Nucleated RBC % Sodium Potassium Chloride Carbon Dioxide Anion Gap BUN Creatinine Estim Creat Clear Calc Estimated GFR Glucose POC Capillary Glucose 319 H 272 H Calcium Magnesium Total Bilirubin AST ALT Alkaline Phosphatase Total Protein Albumin Vancomycin Trough 11.2 Discharge Plan Discharge Attending physician on discharge: Darci Triplett Consulting providers: Ron Garber Discharging Clinician: Kevin Narvaez Anticipated Discharge Date/Time: 12/25/23 14:46 Patient Disposition: [facility] Activity: as tolerated Diet: diabetic Discharge Instructions: Activity as tolerated, per PT/OT Cephalexin 500 mg q 6 hours for 7 days doxycycline 100 mg q 12 hours for 7 days Follow-up/Referrals: Ron Garber MD [Physician] - Savage Ye DO [Primary Care Provider] - Discharge Medications: New doxycycline hyclate 100 mg capsule 100 mg PO Q12H Qty: 14 0RF cephalexin 500 mg capsule 500 mg PO Q6H Qty: 28 0RF hydrocodone-acetaminophen 5-325 mg tablet 1 tablet PO Q6H PRN (Reason: pain) Qty: 12 0RF Continued aspirin [Adult Low Dose Aspirin] 81 mg tablet,delayed release (DR/EC) 81 mg PO DAILY metformin 500 mg tablet extended release 24 hr 500 mg PO DAILY felodipine 5 mg tablet extended release 24 hr 5 mg PO DAILY furosemide 20 mg tablet 20 mg PO DAILY finasteride 5 mg tablet 5 mg PO DAILY atorvastatin 40 mg tablet 40 mg PO DAILY Qty: 90 1RF metoprolol tartrate 25 mg tablet 25 mg PO Q12HR Qty: 180 3RF levothyroxine 125 mcg tablet 125 mcg PO DAILY Qty: 90 1RF Date of admission: 03/28/23 18:15 Primary Care Provider: Savage Ye Admitting Provider: Nick Linda Attending physician on admission: Darci Triplett Condition: Stable
--- NOTE | 2023-03-31 15:51 | PC.NURSE ---
Pt is A&O4 male who was anxious to discharge so that he could get home. Pt participated and contributed in plan of care. Pt denies any pain and expresses no needs. Pt is discharging to [facility] transporting patient. Pt compliant with care. Pt IV was removed prior to discharge. Pt was educated on discharge instructions. Pt agrees with and accepts teaching. Pt refused insulin while here stating that he just wants to try diet change and changes to life habits before taking more medication. Pt educated on importance of taking medication as prescribe. Pt continues to refuse medication. Provider notified. Pt was monitored for any changes in status while here.
== END 2023-03-31 14:00 | DRG 602 ==
LOC: ANHED 17:39 → ANH3MEDSUR 18:42
PROVIDERS: Family Medicine; Student in an Organized Health Care Education/Training Program; Admitting Provider Hospitalist; Emergency Provider Emergency Medicine; PCP Internal Medicine; Visit Provider Nurse Practitioner
DX: L03.115 Cellulitis of right lower limb (principal); I50.43 Acute on chronic combined systolic (congestive) and diastolic (congestive) heart failure; I48.20 Chronic atrial fibrillation, unspecified; M25.461 Effusion, right knee; M17.11 Unilateral primary osteoarthritis, right knee; M17.12 Unilateral primary osteoarthritis, left knee; I87.8 Other specified disorders of veins; I11.0 Hypertensive heart disease with heart failure; E03.9 Hypothyroidism, unspecified; E78.5 Hyperlipidemia, unspecified; E66.9 Obesity, unspecified; E11.9 Type 2 diabetes mellitus without complications; N40.0 Benign prostatic hyperplasia without lower urinary tract symptoms; R26.2 Difficulty in walking, not elsewhere classified; W19.XXXA Unspecified fall, initial encounter; Z86.73 Personal history of transient ischemic attack (TIA), and cerebral infarction without residual deficits; Z85.51 Personal history of malignant neoplasm of bladder; Z85.819 Personal history of malignant neoplasm of unspecified site of lip, oral cavity, and pharynx; Z87.891 Personal history of nicotine dependence
CPT/HCPCS: 36415; 71045; 73562; 80048; 80053; 80202; 82948; 83036; 83735; 83880; 84439; 84443; 84480; 85025; 85652; 86140; 93005; 93306; 96372; 97110; 97116; 97161; 97166; 97530; 97535; 99285; A9270; G0378; J0690; J1040; J1815; J3370; J7512

== ENCOUNTER 2023-10-15 10:19 | Outpatient (CLI) | payer MEDICARE, SELFPAY ==
--- NOTE | ~2023-10-15 | CT_ITS ---
CT Scan of the Chest without Contrast: Clinical Indication: Lung cancer screening, nicotine dependence Technique: Contiguous sections were acquired throughout the chest without intravenous contrast. Dose reduction technique was used on this scan by utilizing automated exposure control and iterative recon struction technique. The dose-length product (DLP) was 486.13 mGy-cm. COMPARISON: 10/13/2022 Findings: There is no evidence of any significant mediastinal, hilar or axillary lymphadenopathy. There are ath erosclerotic calcifications of the aorta and coronary arteries. There is no evidence of pleural or pericardial effusion. Large calcified right basilar pleural plaque present. Additional probable calcified pleural plaque along the left lower lobe region. The lungs are clear. No pulmonary nodules or infiltrates are noted. Images through the upper abdomen reveal no abnormalities. Impression: Lung RADS 1: Negative. 12 month follow-up screening CT advised. Calcified pleural plaques suggest prior asbestos exposure. Reviewed, dictated and finalized at [facility]. Impression: Lung RADS 1: Negative. 12 month follow-up screening CT advised. Calcified pleural plaques suggest prior asbestos exposure.
== END 2023-10-15 10:20 | disposition home or self-care (01) ==
PROVIDERS: PCP Internal Medicine; Visit Provider Physician Assistant
DX: Z12.2 Encounter for screening for malignant neoplasm of respiratory organs (principal); Z87.891 Personal history of nicotine dependence
CPT/HCPCS: 71271

== ENCOUNTER 2024-04-13 22:15 | HOS | payer OTHER, MEDICARE, SELFPAY ==
[2024-04-13] VITALS (16 sets, daily range): BP systolic 96–147; BP diastolic 53–99; PULSE 60–113; RESP 22–34; TEMP 36.3–36.8; O2SAT 88–99
--- NOTE | ~2024-04-13 | XR_ITS ---
CHEST RADIOGRAPH CLINICAL HISTORY: sob . COMPARISON: 03/27/2023 TECHNIQUE: Single portable view of the chest. FINDINGS The cardiomediastinal silhouette is enlarged and partially obscured. Large bilateral pleural effusions are identified with consolidation of the right upper lobe. The bilateral apices are clear. IMPRESSION: Large bilateral pleural effusions with right upper lobe consolidation. Only the apices are aerated. Reviewed, dictated and finalized at location A. [facility]
[2024-04-13 16:54] LABS: Alveolar/Arterial O2 Gradient 467.7 mmHg; Base Excess ABG 8.8 mEq/l (+/-2.0); Carboxyhemoglobin 1.6 % THb (0-2.0); Fractional Inspired Oxygen 100 %; HCO3 ABG 45.2 mEq/l (22.0-26.0); Methemoglobin ABG 0.4 %THb (0-1.5); Oxygen Saturation ABG 90.5 % (95.0-100.0); Oxyhemoglobin 93.1 % THb (90.0-100.0); PO2 ABG 86.5 mmHg (80.0-100.0); PO2 FiO2 Ratio Arterial Blood 0.87 %; Reduced Hemoglobin 4.9 %THb (0-5.0); Total Hemoglobin 14.5 g/dL (12.0-18.0)
[2024-04-13 16:56] LABS: Device NON-REBREATHER MASK; Modified Allen's Test Pass; PCO2 ABG 158.8 mmHg (35.0-45.0); Site Drawn RIGHT RADIAL; pH ABG 7.072 (7.350-7.450)
[2024-04-13] MEDS: ALBUTEROL SULFATE NEB 2.5 MG/3 ML INH 10 MG INHALATION (17:05)
[2024-04-13] MEDS: IPRATROPIUM BR 0.02% INH SOLN 0.5 MG/2.5 ML VIAL 1 MG INHALATION (17:05)
[2024-04-13] MEDS: IPRATROPIUM 0.5 MG/ALBUTEROL SULFATE 2.5 MG AMPUL.NEB 3 ML (17:05)
[2024-04-13 17:10] LABS: Hematocrit 47.9 % (42.0-52.0); Mean Corpuscular HGB Conc 29.2 g/dl (32-36); Mean Corpuscular Hemoglobin 28.2 pg (26-34); Mean Corpuscular Volume 96.6 fl (80-100); Mean Platelet Volume 10.3 fl (7.4-10.4); Platelet Count Result 237 k/mm3 (150-375); Red Blood Count 4.96 M/mm3 (4.6-6.20); Red Cell Distribution Width 14.6 % (11.5-14.5); White Blood Count 12.4 K/mm3 (4.5-10.0)
[2024-04-13 17:22] LABS: INR 1.1; Prothrombin Time 14.6 Seconds (11.1-14.7)
[2024-04-13 17:23] LABS: Partial Thromboplastin Time 30.2 Seconds (22.3-36.8)
[2024-04-13 17:31] LABS: Alanine Aminotransferase 28 U/L (6-50); Albumin Level 4.1 g/dL (3.5-5.1); Alkaline Phosphatase 91 U/L (38-126); Aspartate Amino Transferase 31 U/L (17-59); Bilirubin,Total 0.9 mg/dL (0.2-1.3); Blood Urea Nitrogen 26 mg/dL (9-20); Calcium 8.5 mg/dL (8.4-10.2); Chloride 98 mmol/L (98-107); Estimated CRCL calculation 73 ml/min; Estimated Glomerular Filt Rate 59; Glucose 236 mg/dL (65-110); NT Pro B Type Natriuretic Pept 1490 pg/mL (19.9-100); Potassium 4.9 mmol/L (3.4-5.0); Sodium 143 mmol/L (137-145)
[2024-04-13 17:39] LABS: Carbon Dioxide > 40 mmol/L (22-30); Troponin I 0.013 ng/mL (0.000-0.034)
[2024-04-13 17:50] LABS: Band Neutrophils Percent 2 % (0-6); Eosinophils Absolute Manual 0.24 K/mm3 (0.02-0.50); Eosinophils Percent Manual 2 % (0-4); Lymphocytes Absolute Manual 1.36 K/mm3 (1.1-4.5); Monocytes Absolute Manual 0.74 K/mm3 (0.1-0.90); Monocytes Percent Manual 6 % (3-9); Neutrophils Absolute Manual 10.04 K/mm3 (1.3-6.7); Neutrophils Percent Manual 79 % (46-73); Platelet Estimate Adequate (Adequate); Schistocytes None Seen; Total Cells Counted 100
[2024-04-13 17:51] LABS: Hypochromasia 1+
[2024-04-13 17:52] LABS: Atypical Lymphocytes Present
--- NOTE | 2024-04-13 17:52 | ED.SOB ---
HPI - SOB/Dyspnea General Chief Complaint: Shortness of Breath/Dyspnea Stated Complaint: SOB Time Seen by Provider: 04/13/24 16:59 History of Present Illness HPI Narrative: 78-year-old male with a past medical history including prior stroke, congestive heart failure, atrial fibrillation, obstructive sleep apnea, morbid obesity. Patient presents to the emergency department via EMS in respiratory distress. EMS was called to patient's household where he was having shortness of breath, wears 2 L at home oxygen baseline but was found to be hypoxic in the 80s despite non-rebreather. Patient is a known DNR, DNI, has a history of throat cancer and lung resection. Patient has audible wheezes and appears very edematous with fluid throughout his lung gonzalez, extremities and facial features. He presents via EMS and was brought back to room H2 for resuscitation. Patient is encephalopathic at this time not able to provide me any details. Related Data Home Medications ?Medication ?Instructions ?Recorded ?Confirmed ?Last Taken ?Type finasteride 5 mg tablet 5 mg PO DAILY 03/16/19 02/23/24 03/27/23 History aspirin 81 mg tablet,delayed 81 mg PO DAILY 07/09/22 02/23/24 Unknown History release (Adult Low Dose Aspirin) Allergies Allergy/AdvReac Type Severity Reaction Status Date / Time No Known Allergies Allergy Verified 02/23/24 08:50 Review of Systems Review of Systems: ROS unobtainable: Yes unobtainable due to mental status PMFSH Past Medical History Medical History Type 2 diabetes mellitus History of throat cancer Hx of bladder cancer Obstructive sleep apnea Former cigarette smoker Atrial fibrillation Congestive heart failure CVA (cerebral vascular accident) BPH (benign prostatic hyperplasia) Hypothyroidism Obesity Hyperlipidemia Hypertension Surgical History Surgical History H/O knee surgery telly History of throat surgery History of bladder surgery S/P TURP History of removal of pigmented skin lesion Family History Family History Sibling Family history of lung cancer, Onset Age: 62 Family history of malignant neoplasm of breast sister Father Family history of primary malignant neoplasm of liver Social History Social History Social History: The patient lives with his lucille. He states that he has three children . 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 He used to drink heavily when he was younger. Code staus : DNR Smoking packs per day: 1 Smoking cigarettes per day: 20.0 Years smoked: 55 Smoking pack-years: 55.00 Smoking status: Former smoker Tobacco type: cigarettes Second hand tobacco smoke exposure: No Alcohol intake: former Substance use: never Substance use type: does not use Do You Feel Safe in your Home?: Yes Lack of Transportation: No Lack of Food: Never True Current Housing: I Have Housing Concerned About Future Housing: No Difficulty Paying Gas/Electric Bills: No Difficulty Paying for Meds: No Currently Unemployed: No Education: High School Diploma/GED Difficulty w/ Childcare or Family Care: No Living arrangements: with family Spiritual care concerns: No Exam Narrative: GENERAL: Encephalopathic, respiratory distress, markedly fluid overloaded and morbidly obese HEAD: [Normocephalic, atraumatic.] EYES: [PERRLA and EOMI.] Fluid around the facial features and around the eyes with puffy face ENT: Nares clear, no rhinorrhea or epistaxis. Mucous membranes moist. NECK: Supple. CHEST: Coarse breath sounds throughout all lung gonzalez, respiratory distress with tachypnea and shallow breathing HEART: Tachycardic rate, regular rhythm. No murmur heard. [Normal peripheral pulses.] ABDOMEN: [Soft, nondistended], [nontender], [No rigidity or guarding] EXTREMITIES: Normal range of motion. 2+ edema throughout the arms and legs SKIN: Warm, dry, no rash. NEURO: Unable to fully assess, patient is alert to his name but not able to provide details or collateral formation, not following commands, occasionally nod yes or no PSYCH: Unable to assess Course Vital Signs Vital signs: Vital Signs Temperature 36.8 C 04/13/24 16:29 Pulse Rate 96 04/13/24 16:29 Respiratory Rate 28 H 04/13/24 16:29 Blood Pressure 125/69 04/13/24 16:29 Pulse Oximetry 95 04/13/24 16:29 Oxygen Delivery Non-Rebreather Mask 04/13/24 16:29 Oxygen Flow Rate 10 04/13/24 16:29 Temperature 36.8 C 04/13/24 16:29 Pulse Rate 94 04/13/24 19:42 Respiratory Rate 27 H 04/13/24 19:42 Blood Pressure 96/65 L 04/13/24 19:42 Pulse Oximetry 92 04/13/24 19:49 Oxygen Delivery High Flow Therapy with Nasal Cannula 04/13/24 19:49 Oxygen Flow Rate 40 04/13/24 19:49 Fraction of Inspired Oxygen 85 04/13/24 19:49 MDM - SOB/Dyspnea MDM Narrative Medical decision making narrative: 78-year-old male with history of congestive heart failure, throat cancer, lung resection and baseline hypoxic respiratory failure requiring oxygen at home presenting in respiratory distress. He is a known DNR DNI and his provides collateral formation and states that he has been to tearing over last several days to weeks. Patient is alert to his name but encephalopathic and not able to answer questions appropriately. Examination shows marked edema throughout both arms and legs, fluid overload signs coarse breath sounds throughout all lung gonzalez and tachycardic rate with tachypnea. He is saturating 95 on non-rebreather. Given his level of respiratory distress respiratory therapy was called to bedside for assistance. He was placed on BiPAP after verbally agreeing with patient's that he would benefit at this time. Patient's states that he does not tolerate BiPAP for CPAP therapy well and is adamant about his DNR DNI status. His initial ABG shows significant respiratory acidosis with a pH of 7.0, pCO2 of 160, bicarb of 45 indicative of an acute on chronic hypoxic, hypercapnic respiratory failure. Patient is critical at this time with his level of acidosis. We had marciano discussions at bedside with patient's about prognosis and if he does not tolerate BiPAP therapy there is not much we can offer him in terms of respiratory support based on his living will and wishes. Family member agrees and states that patient's wishes would be to more comfortably and he does not want anything extraordinary or invasive, patient has been dealing with respiratory issues for a long time and feels like he is ready to pass. I offered hospice consultation to the patient and family and they verbally agreed. Hospice was called over the phone and will, evaluated at bedside. We will go ahead and treat him with temporizing measures including BiPAP therapy, treatments for his respiratory status including DuoNeb inhalation, Solu-Medrol, magnesium and diuretic therapy with Lasix. Awaiting hospice consultation at this time. Patient was re-evaluated after BiPAP was initiated. He had improvement and his mental status has improved significantly. He expresses wishing to stop BiPAP therapy and wishes to pass peacefully. Family in agreement, hospice coordination has been conducted and they are on their way to discuss inpatient hospitalization with hospice care. Family in agreement at bedside, p.r.n. Ativan and p.r.n. morphine for anxiety and air hunger or ordered. Patient is placed on nasal cannula and his medications have been discontinued. Patient states he feels much better and is happy that we are letting him go on his own terms. Hospice has arrived and after considerations with the patient and the family members have agreed to accept him to inpatient hospice under the hospitalist service. I discussed the case with Dr. Garcia the current hospitalist and we went over patient's care plan, clinical presentation and hospice wishes. She agreed to accept the patient to hospice care at this time inpatient. Differential Diagnosis Differential diagnosis: Likely acute exacerbation of chronic obstructive airways disease, congestive heart failure, community acquired pneumonia, asthma with exacerbation, pulmonary embolism and other Medical Records Attestation: I reviewed the patient's medical records. Lab Data Attestation: I reviewed the patient's lab results. 04/13/24 17:00 04/13/24 17:00 Labs: Lab Results 04/13/24 04/13/24 Range/Units 16:50 17:00 WBC 12.4 H (4.5-10.0) K/mm3 RBC 4.96 (4.6-6.20) M/mm3 Hgb 14.0 (14.0-18.0) g/dL Hct 47.9 (42.0-52.0) % MCV 96.6 (80-100) fl MCH 28.2 (26-34) pg MCHC 29.2 L (32-36) g/dl RDW 14.6 H (11.5-14.5) % Plt Count 237 (150-375) k/mm3 MPV 10.3 (7.4-10.4) fl Immature Gran % (Auto) Not Reportable Neut % (Auto) Not Reportable Lymph % (Auto) Not Reportable [place] % (Auto) Not Reportable Eos % (Auto) Not Reportable Baso % (Auto) Not Reportable Lymph # (Auto) Not Reportable [place] # (Auto) Not Reportable Eos # (Auto) Not Reportable Baso # (Auto) Not Reportable Abs Immat Gran (auto) Not Reportable Absolute Neuts (auto) Not Reportable Absolute Nucleated RBC Not Reportable Total Counted 100 Neutrophils % (Manual) 79 H (46-73) % Band Neutrophils % 2 (0-6) % Lymphocytes % (Manual) 11.0 L (18-44) % Monocytes % (Manual) 6 (3-9) % Eosinophils % (Manual) 2 (0-4) % Nucleated RBC % Not Reportable Abs Neuts (Manual) 10.04 H (1.3-6.7) K/mm3 Abs Lymphs (Manual) 1.36 (1.1-4.5) K/mm3 Abs Monocytes (Manual) 0.74 (0.1-0.90) K/mm3 Absolute Eos (Manual) 0.24 (0.02-0.50) K/mm3 Atypical Lymphocytes Present Platelet Estimate Adequate (Adequate) Hypochromasia 1+ Schistocytes None seen PT 14.6 (11.1-14.7) Seconds INR 1.1 APTT 30.2 (22.3-36.8) Seconds Methemoglobin 0.4 (0-1.5) %THb Sodium 143 (137-145) mmol/L Potassium 4.9 (3.4-5.0) mmol/L Chloride 98 (98-107) mmol/L Carbon Dioxide > 40 H (22-30) mmol/L Anion Gap (4-12) mmol/L BUN 26 H D (9-20) mg/dL Creatinine 1.20 (0.7-1.3) mg/dL Estim Creat Clear Calc 73 ml/min Estimated GFR 59 (59 - ) Glucose 236 H (65-110) mg/dL Calcium 8.5 (8.4-10.2) mg/dL Total Bilirubin 0.9 (0.2-1.3) mg/dL AST 31 (17-59) U/L ALT 28 (6-50) U/L Alkaline Phosphatase 91 (38-126) U/L Troponin I 0.013 (0.000-0.034) ng/mL NT-Pro-B Natriuret Pep 1490 H (19.9-100) pg/mL Total Protein 7.0 (6.3-8.2) g/dL Albumin 4.1 (3.5-5.1) g/dL ABG Data ABG results: 04/13/24 16:50 Puncture Site Right radial ABG pH 7.072 L* ABG pCO2 158.8 H* ABG pO2 86.5 ABG PO2/FiO2 Ratio 0.87 ABG HCO3 45.2 H ABG O2 Saturation 90.5 L ABG O2 Content 19.0 ABG Base Excess 8.8 A-a Gradient 467.7 Oxyhemoglobin 93.1 Carboxyhemoglobin 1.6 Reduced Hemoglobin 4.9 Total Hemoglobin 14.5 O2 Delivery Device Non-rebreather mask O2 Liters/Min 15.0 FiO2 100 Imaging Data Attestation: I personally reviewed and interpreted this imaging study as follows: My impression: Impressions Chest X-Ray 04/13/24 17:44 IMPRESSION: Large bilateral pleural effusions with right upper lobe consolidation. Only the apices are aerated. Critical Care Time Critical Care Time Critical Care Time: Yes Total Critical Care Time: 75 Discharge Plan Discharge Clinical Impression: Acute respiratory failure with hypoxia and hypercapnia, Admission for hospice care, Respiratory acidosis Congestive heart failure Qualifiers: Heart failure type: combined systolic and diastolic Heart failure chronicity: unspecified Qualified Code(s): I50.40 - Unspecified combined systolic (congestive) and diastolic (congestive) heart failure Patient Disposition: Hospice [facility] Inpatient Condition: Serious Patient Language: Korean Prescriptions: No Action aspirin [Adult Low Dose Aspirin] 81 mg tablet,delayed release (DR/EC) 81 mg PO DAILY hydrocodone-acetaminophen 5-325 mg tablet 1 tablet PO Q6H PRN (Reason: pain) Qty: 12 0RF finasteride 5 mg tablet 5 mg PO DAILY atorvastatin 40 mg tablet 40 mg PO DAILY Qty: 90 1RF felodipine 5 mg tablet extended release 24 hr See Rx Instructions .ROUTE .COMPLEX Qty: 90 3RF Dose Instruction: TAKE 1 TABLET BY MOUTH DAILY Rx Instructions: TAKE 1 TABLET BY MOUTH DAILY levothyroxine 125 mcg tablet 125 mcg PO DAILY Qty: 90 3RF metoprolol tartrate 25 mg tablet 25 mg PO Q12HR Qty: 180 3RF metformin 500 mg tablet extended release 24 hr 500 mg PO BID Qty: 180 3RF furosemide 20 mg tablet 20 mg PO DAILY Qty: 90 2RF benzonatate 200 mg capsule 200 mg PO TID PRN (Reason: cough) Qty: 30 0RF Follow-up/Referrals: Savage Ye DO [Primary Care Provider] - Time of Disposition: 20:58
--- NOTE | 2024-04-13 18:05 | PCCCNOTE ---
Called to the ED to speak with pt and his regarding Hospice. Pt is unable to be taken care of at home, due to him being too weak and ill at this time, his is unable to physically do it. Pt is requiring BIPAP at this time. I called [facility] to come evaluate the pt for GIP. Awaiting return call, referral sent.
[2024-04-13] MEDS: FUROSEMIDE INJ 40 MG/4 ML VIAL IV PUSH (18:14)
[2024-04-13] MEDS: MAGNESIUM SULF 2 GM/WATER 50ML 2 GM/50 ML BAG IVPB (18:15)
[2024-04-13] MEDS: methylPREDNISolone SOD SUCC 125 MG VIAL IV PUSH (18:15)
--- NOTE | 2024-04-13 18:44 | PC.NURSE ---
Per pt and family request pt taken off of BIPAP and placed on nasal canula
--- NOTE | 2024-04-13 19:17 | PCCCNOTE ---
Aniya with [facility] called back saying that the nurse will be on his way.
--- NOTE | 2024-04-13 21:22 | P.HP_ITS ---
H&P: HPI History of Present Illness Date/Time: 04/13/24 21:22 Chief Complaint: Shortness of breath Narrative: This is a 78-year-old male with past medical history significant for morbid obesity, type 2 diabetes mellitus, obstructive sleep apnea, atrial fibrillation, congestive heart failure, COPD/emphysema. Patient comes to the emergency room due to shortness of breath preliminary workup significant for a pH of 7.02 pCO2 158 patient declining treatment and wants comfort care measures only. Patient has been made hospice and admitted to the regular medical floor under hospice. CHEST RADIOGRAPH CLINICAL HISTORY: sob . COMPARISON: 03/27/2023 TECHNIQUE: Single portable view of the chest. FINDINGS The cardiomediastinal silhouette is enlarged and partially obscured. Large bilateral pleural effusions are identified with consolidation of the right upper lobe. The bilateral apices are clear. IMPRESSION: Large bilateral pleural effusions with right upper lobe consolidation. Only the apices are aerated. Review of Systems Review of Systems: Shortness of breath PMFSH Past Medical History Medical History Type 2 diabetes mellitus History of throat cancer Hx of bladder cancer Obstructive sleep apnea Former cigarette smoker Atrial fibrillation Congestive heart failure CVA (cerebral vascular accident) BPH (benign prostatic hyperplasia) Hypothyroidism Obesity Hyperlipidemia Hypertension Surgical History Surgical History H/O knee surgery telly History of throat surgery History of bladder surgery S/P TURP History of removal of pigmented skin lesion Family History Family History Sibling Family history of lung cancer, Onset Age: 62 Family history of malignant neoplasm of breast sister Father Family history of primary malignant neoplasm of liver Social History Social History Social History: The patient lives with his lucille. He states that he has three children . 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 He used to drink heavily when he was younger. Code staus : DNR Smoking packs per day: 1 Smoking cigarettes per day: 20.0 Years smoked: 55 Smoking pack-years: 55.00 Smoking status: Former smoker Tobacco type: cigarettes Second hand tobacco smoke exposure: No Alcohol intake: former Substance use: never Substance use type: does not use Do You Feel Safe in your Home?: Yes Lack of Transportation: No Lack of Food: Never True Current Housing: I Have Housing Concerned About Future Housing: No Difficulty Paying Gas/Electric Bills: No Difficulty Paying for Meds: No Currently Unemployed: No Education: High School Diploma/GED Difficulty w/ Childcare or Family Care: No Living arrangements: with family Spiritual care concerns: No Meds Home Medications and Allergies Home Medications ?Medication ?Instructions ?Recorded ?Confirmed ?Type finasteride 5 mg tablet 5 mg PO DAILY 03/16/19 04/13/24 History atorvastatin 40 mg tablet 40 mg PO DAILY #90 tabs 10/30/21 04/13/24 Rx aspirin 81 mg tablet,delayed 81 mg PO DAILY 07/09/22 04/13/24 History release (Adult Low Dose Aspirin) felodipine 5 mg tablet,extended See Rx Instructions .Route 06/15/23 04/13/24 Rx release 24 hr .COMPLEX #90 tabs levothyroxine 125 mcg tablet 125 mcg PO DAILY #90 tabs 06/21/23 04/13/24 Rx metoprolol tartrate 25 mg tablet 25 mg PO Q12HR #180 tabs 08/31/23 04/13/24 Rx metformin 500 mg tablet,extended 500 mg PO BID #180 tabs 03/11/24 04/13/24 Rx release 24 hr furosemide 20 mg tablet 20 mg PO DAILY #90 tabs 03/21/24 04/13/24 Rx Allergies Allergy/AdvReac Type Severity Reaction Status Date / Time No Known Allergies Allergy Verified 02/23/24 08:50 Vital Signs Vital Signs - 24 hr 04/13/24 16:29 04/13/24 16:58 04/13/24 16:58 Temperature 98.2 F Pulse Rate 96 84 Respiratory Rate 28 H Blood Pressure 125/69 Pulse Oximetry 95 97 Oxygen Delivery Non-Rebreather Mask Non-Rebreather Mask Oxygen Flow Rate 10 10 Fraction of Inspired Oxygen 04/13/24 16:58 04/13/24 17:00 04/13/24 17:00 Temperature Pulse Rate 93 98 98 Respiratory Rate 34 H 28 H 28 H Blood Pressure 130/88 Pulse Oximetry 97 96 Oxygen Delivery BiPAP Oxygen Flow Rate Fraction of Inspired Oxygen 01/08/25 17:12 04/13/24 17:17 04/13/24 17:32 Temperature Pulse Rate 94 95 Respiratory Rate 26 H 28 H Blood Pressure 138/87 147/99 H Pulse Oximetry 97 97 99 Oxygen Delivery BiPAP Oxygen Flow Rate Fraction of Inspired Oxygen 55 04/13/24 17:39 04/13/24 17:47 04/13/24 18:21 Temperature Pulse Rate 101 H 113 H 103 H Respiratory Rate 28 H 30 H 30 H Blood Pressure 125/71 99/53 L Pulse Oximetry 98 92 Oxygen Delivery Oxygen Flow Rate Fraction of Inspired Oxygen 04/13/24 18:45 04/13/24 19:42 04/13/24 19:49 Temperature Pulse Rate 94 Respiratory Rate 27 H Blood Pressure 96/65 L Pulse Oximetry 90 91 92 Oxygen Delivery Nasal Cannula High Flow Therapy with Na Oxygen Flow Rate 7 40 Fraction of Inspired Oxygen 85 Exam Narrative: Patient is sitting in a stretcher Const: General: comfortable, no acute distress, well developed, alert, awake and average body habitus Nutritional Appearance: obese morbidly obese Orientation/consciousness: patient oriented x3 Other: Ill-appearing, patient is on oxygen. HENMT: Head: normal to inspection, normocephalic and atraumatic Ears: hearing grossly normal bilaterally Face/Nose/Sinus: normal facial exam Face and sinus: normal facial exam Eyes: General: appearance normal, both eyes and all related structures Pupils: Equal, round and reactive pupils present EOM: EOMs intact bilaterally Neck: Neck: full ROM, no lymphadenopathy and no JVD Thyroid: thyroid normal Lymphatic: no lymphadenopathy noted Resp: Effort & Inspection: normal respiratory effort and able to speak in complete sentences Auscultation: rales and diminished lung sounds Cardio: Jugular venous distension: no JVD Rate: regular rate Rhythm: regular rhythm Heart sounds: S1 normal heart sound present and S2 normal heart sound present GI: Inspection: Pannus present and obesity GI Palp: Yes Soft to palpation and Yes No hepatosplenomegaly present : General: Yes deferred Skin: Rashes: no rashes Wounds: no wounds Neuro: General: patient oriented x3 and CN's II-XI intact bilaterally Cranial nerves: Yes CN's II-XII intact bilaterally and Yes Equal, round and reactive pupils present Cognition (Neuro): normal cognition Speech: normal speech Gait exam (Neuro): Unable to assess gait Motor exam (neuro): 5/5 motor strength present throughout Extrem: General: edema bilateral (3+) H&P: Results Labs Labs: Short CBC 04/13/24 Range/Units 17:00 WBC 12.4 H (4.5-10.0) K/mm3 Hgb 14.0 (14.0-18.0) g/dL Hct 47.9 (42.0-52.0) % Plt Count 237 (150-375) k/mm3 BMP 04/13/24 17:00 Sodium 143 Potassium 4.9 Chloride 98 Carbon Dioxide > 40 H BUN 26 H D Creatinine 1.20 Glucose 236 H Calcium 8.5 Cardiac Enzymes 04/13/24 Range/Units 17:00 Troponin I 0.013 (0.000-0.034) ng/mL Liver Function 04/13/24 Range/Units 17:00 Total Bilirubin 0.9 (0.2-1.3) mg/dL AST 31 (17-59) U/L ALT 28 (6-50) U/L Alkaline Phosphatase 91 (38-126) U/L Albumin 4.1 (3.5-5.1) g/dL Assessment and Plan Assessment and plan (1) Admission for hospice care: Code(s): Z51.5 - Encounter for palliative care Status: Acute Assessment and Plan: Comfort care measures only (2) Congestive heart failure: Qualifiers: Heart failure chronicity: unspecified Heart failure type: combined systolic and diastolic Qualified Code(s): I50.40 - Unspecified combined systolic (congestive) and diastolic (congestive) heart failure Code(s): I50.9 - Heart failure, unspecified Status: Acute (3) Acute on chronic diastolic congestive heart failure: Code(s): I50.33 - Acute on chronic diastolic (congestive) heart failure Status: Acute (4) Type 2 diabetes mellitus: Qualifiers: Diabetes mellitus insurance account representative insulin use: without nursing home use Diabetes mellitus complication status: with circulatory complication Code(s): E11.9 - Type 2 diabetes mellitus without complications Status: Acute (5) Morbid obesity with BMI of 40.0-44.9, adult: Code(s): E66.01 - Morbid (severe) obesity due to excess calories; Z68.41 - Body mass index [BMI] 40.0-44.9, adult Status: Acute (6) Respiratory acidosis: Code(s): E87.29 - Other acidosis Status: Acute (7) Acute respiratory failure with hypoxia and hypercapnia: Code(s): J96.01 - Acute respiratory failure with hypoxia; J96.02 - Acute respiratory failure with hypercapnia Status: Acute (8) Debilitated: Code(s): R53.81 - Other malaise Status: Acute (9) Unable to ambulate: Code(s): R26.2 - Difficulty in walking, not elsewhere classified Status: Acute (10) Unstable gait: Code(s): R26.81 - Unsteadiness on feet Status: Acute (11) Lower extremity edema: Code(s): R60.0 - Localized edema Status: Acute Plan Patient has opted for hospice care and comfort measures only Hospitalist MIPS Advance Care Plan I have confirmed that the patient's Advanced Care Plan is present, code status is documented, or surrogate decision maker is listed in patient medical record.: Yes Medication Reconciliation I have utilized all available resources to obtain, update and review the patients current medications (includes all prescriptions, OTC, herbals, cannabis, and nutritional supplements).: Yes
[2024-04-13] MEDS: MORPHINE 50 MG/NS 100ML (*CRX) 50 MG/100 ML BAG IV CONT (23:03)
[2024-04-14] MEDS: HYOSCYAMINE SULFATE SOLN 0.125 MG/ML ORAL SYRINGE PO ×3 (07:44→17:27)
[2024-04-14 08:00] VITALS: BP 128/52; PULSE 89; RESP 18; TEMP 36.7; O2SAT 100
--- NOTE | 2024-04-14 08:00 | P.PNIM_ITS ---
Progress Note: A&P Assessment and Plan (1) Acute respiratory failure with hypoxia and hypercapnia: Code(s): J96.01 - Acute respiratory failure with hypoxia; J96.02 - Acute respiratory failure with hypercapnia Status: Acute Assessment and Plan: * patient presented with acute respiratory failure with hypoxia and hypercapnia. PH initially 7.072, pCO2 158.8. Patient has known history of throat cancer, lung cancer with resection, bladder cancer * patient is a DNR DNI * plan for comfort/inpatient hospice * chest x-ray showing bilateral large pleural effusion * continue Morphine infusion and ativan for comfort * Turn and reposition as needed for comfort * Oral care for comfort. * [facility] following (2) Acute on chronic diastolic congestive heart failure: Code(s): I50.33 - Acute on chronic diastolic (congestive) heart failure Status: Acute Assessment and Plan: * patient made comfort/ hospice * see above (3) Admission for hospice care: Code(s): Z51.5 - Encounter for palliative care Status: Acute Assessment and Plan: * Comfort care measures only Time Spent With Patient Time with patient: 25 - 35 minutes Subjective Date/time seen: 04/14/24 08:00 Interval history: interval history: this is a 78-year-old male a significant past medical history of throat cancer, Lung cancer with resection, type 2 diabetes mellitus, bladder cancer, sleep apnea, AFib, CHF, CVA, BP hypothyroidism, hyperlipidemia, hypertension who presented to the hospital With acute respiratory distress. EMS was called to the patient's house for shortness a breath. He wears 2 L of oxygen at baseline was found to be hypoxic in the 80s on a non-rebreather. Work hospital included a chest x-ray which shown large bilateral pleural effusions with right consolidation, only the apices are aerated. Initial labs shown a white blood cell count of 12.4, bicarb greater than 40, proBNP 1490, troponin negative. ABG showed a pH of 7.072, pCO2 of 158.8, bicarb 45.2. patient is a known DNR DNI. Family wanting hospice / comfort measures only. He is being admitted for inpatient hospice subjective: Patient appears uncomfortable in the bed, constantly trying to reposition himself. Family at bedside. Labs and imaging reviewed. Review of Systems Review of Systems: ROS unobtainable: Yes unobtainable due to mental status Exam Narrative: General: well nourished Head: atraumatic, no encephalopathy Eyes: PERRLA, sclera clear ENT: moist mucous membranes, nasal passages clear Neck: supple, no JVD, no adenopathy, trachea midline Cardiac: Normal S1 and S2. No murmur, gallops or friction rubs, peripheral pulses intact. Respiratory:Very course bilaterally, use of accessory muscles, currently on Airvo, appears in distress Gastrointestinal: soft, non-distended, non-tender, normoactive bowel sounds. : voiding without difficulty. Extremities: moves all extremities well Neuro: Alert and oriented x4, cranial nerves intact, no neuro deficits. Objective Data Vital Signs Vital Signs: Vital Signs - 24 hr 04/13/24 16:29 04/13/24 16:58 04/13/24 16:58 Temperature 98.2 F Pulse Rate 96 84 Respiratory Rate 28 H Blood Pressure 125/69 Pulse Oximetry 95 97 Oxygen Delivery Non-Rebreather Mask Non-Rebreather Mask Oxygen Flow Rate 10 10 Fraction of Inspired Oxygen 04/13/24 16:58 04/13/24 17:00 04/13/24 17:00 Temperature Pulse Rate 93 98 98 Respiratory Rate 34 H 28 H 28 H Blood Pressure 130/88 Pulse Oximetry 97 96 Oxygen Delivery BiPAP Oxygen Flow Rate Fraction of Inspired Oxygen 04/13/24 17:12 04/13/24 17:17 04/13/24 17:32 Temperature Pulse Rate 94 95 Respiratory Rate 26 H 28 H Blood Pressure 138/87 147/99 H Pulse Oximetry 97 97 99 Oxygen Delivery BiPAP Oxygen Flow Rate Fraction of Inspired Oxygen 55 04/13/24 17:39 04/13/24 17:47 04/13/24 18:21 Temperature Pulse Rate 101 H 113 H 103 H Respiratory Rate 28 H 30 H 30 H Blood Pressure 125/71 99/53 L Pulse Oximetry 98 92 Oxygen Delivery Oxygen Flow Rate Fraction of Inspired Oxygen 04/13/24 18:45 04/13/24 19:42 04/13/24 19:49 Temperature Pulse Rate 94 Respiratory Rate 27 H Blood Pressure 96/65 L Pulse Oximetry 90 91 92 Oxygen Delivery Nasal Cannula High Flow Therapy with Na Oxygen Flow Rate 7 40 Fraction of Inspired Oxygen 85 04/13/24 21:28 04/13/24 21:46 04/13/24 22:30 Temperature Pulse Rate 100 101 H Respiratory Rate 25 H 25 H Blood Pressure 116/78 136/67 Pulse Oximetry 93 96 88 L Oxygen Delivery Non-Rebreather Mask Oxygen Flow Rate 9 Fraction of Inspired Oxygen 04/13/24 22:33 Temperature 97.3 F L Pulse Rate 60 Respiratory Rate 22 H Blood Pressure 103/86 Pulse Oximetry 88 L Oxygen Delivery Oxygen Flow Rate Fraction of Inspired Oxygen Intake/Output Intake/Output: Intake & Output 04/11/24 04/12/24 04/13/24 04/14/24 23:59 23:59 23:59 23:59 Intake Total 50 17.7 Balance 50 17.7 Meds/Results Medications: Active Medications Generic Name Dose Route Start Last Admin Trade Name Freq PRN Reason Stop Dose Admin Albuterol/Ipratropium 3 ml 04/13/24 22:45 04/14/24 03:03 Ipratropium 0.5 Mg/Albuterol Sulfate 2.5 Mg Ampul.Neb 3 Ml INHALATION Not Given Q4H JOSEFA Hyoscyamine 0.125 mg 04/13/24 22:41 04/14/24 07:44 Hyoscyamine Sulfate Soln 0.125 Mg/Ml Oral Syringe PO 0.125 mg Q4H PRN Administration secretions Morphine Sulfate 50 mg in 100 mls @ 2 mls/hr 04/13/24 22:45 04/14/24 07:54 IV CONT 1 mg/hr .Q24H JOSEFA 2 mls/hr Infusion 1 MG/HR Lorazepam 2 mg 04/13/24 18:54 Lorazepam Inj (*Crx) 2 Mg/Ml Vial IV PUSH Q2H PRN Anxiety/Comfort Lorazepam 0.5 mg 04/13/24 22:41 Lorazepam Inj (*Crx) 2 Mg/Ml Vial IV PUSH Q4H PRN Anxiety Morphine Sulfate 2 mg 04/13/24 18:54 Morphine Sulfate (*Crx) 2 Mg/Ml Inj IV PUSH Q30M PRN COMFORT Senna/Docusate Sodium 1 tab 04/14/24 21:00 Senna/Docusate Sodium Tablet PO [facility] Radiology Results: ITS Impressions Chest X-Ray 04/13/24 17:44 IMPRESSION: Large bilateral pleural effusions with right upper lobe consolidation. Only the apices are aerated. Labs Labs: Laboratory Results - last 24 hr 04/13/24 04/13/24 16:50 17:00 WBC 12.4 H RBC 4.96 Hgb 14.0 Hct 47.9 MCV 96.6 MCH 28.2 MCHC 29.2 L RDW 14.6 H Plt Count 237 MPV 10.3 Immature Gran % (Auto) Not Reportable Neut % (Auto) Not Reportable Lymph % (Auto) Not Reportable Real % (Auto) Not Reportable Eos % (Auto) Not Reportable Baso % (Auto) Not Reportable Lymph # (Auto) Not Reportable Real # (Auto) Not Reportable Eos # (Auto) Not Reportable Baso # (Auto) Not Reportable Abs Immat Gran (auto) Not Reportable Absolute Neuts (auto) Not Reportable Absolute Nucleated RBC Not Reportable Total Counted 100 Neutrophils % (Manual) 79 H Band Neutrophils % 2 Lymphocytes % (Manual) 11.0 L Monocytes % (Manual) 6 Eosinophils % (Manual) 2 Nucleated RBC % Not Reportable Abs Neuts (Manual) 10.04 H Abs Lymphs (Manual) 1.36 Abs Monocytes (Manual) 0.74 Absolute Eos (Manual) 0.24 Atypical Lymphocytes Present Platelet Estimate Adequate Hypochromasia 1+ Schistocytes None seen PT 14.6 INR 1.1 APTT 30.2 Puncture Site Right radial ABG pH 7.072 L* ABG pCO2 158.8 H* ABG pO2 86.5 ABG PO2/FiO2 Ratio 0.87 ABG HCO3 45.2 H ABG O2 Saturation 90.5 L ABG O2 Content 19.0 ABG Base Excess 8.8 A-a Gradient 467.7 Oxyhemoglobin 93.1 Carboxyhemoglobin 1.6 Methemoglobin 0.4 Reduced Hemoglobin 4.9 Total Hemoglobin 14.5 O2 Delivery Device Non-rebreather mask O2 Liters/Min 15.0 FiO2 100 Sodium 143 Potassium 4.9 Chloride 98 Carbon Dioxide > 40 H Anion Gap BUN 26 H D Creatinine 1.20 Estim Creat Clear Calc 73 Estimated GFR 59 Glucose 236 H Calcium 8.5 Total Bilirubin 0.9 AST 31 ALT 28 Alkaline Phosphatase 91 Troponin I 0.013 NT-Pro-B Natriuret Pep 1490 H Total Protein 7.0 Albumin 4.1 Quality If No VTE Prophylaxis Answer both mechanical and pharmacologic: Reason no mechanical VTE proph: low risk/not indicated ( comfort/hospice)
[2024-04-14] MEDS: MORPHINE SULFATE (*CRX) 2 MG/ML INJ IV PUSH ×2 (09:00→10:46)
[2024-04-14 20:00] VITALS: BP 57/44; PULSE 91; RESP 10; TEMP 36; O2SAT 84
[2024-04-14] MEDS: GLYCOPYRROLATE INJ (*SP) 0.2 MG/ML VIAL IV PUSH (21:40)
[2024-04-14] MEDS: MORPHINE 50 MG/NS 100ML (*CRX) 50 MG/100 ML BAG 6 MG IV CONT (23:38)
[2024-04-14] MEDS: ATROPINE SULFATE 1% OPHTH SOLN 5 ML BOTTLE 1 DROP SUBLINGUAL (23:38)
[2024-04-15] MEDS: MORPHINE SULFATE (*CRX) 2 MG/ML INJ IV PUSH (01:45)
[2024-04-15] MEDS: ATROPINE SULFATE 1% OPHTH SOLN 5 ML BOTTLE 1 DROP SUBLINGUAL ×2 (05:31→10:27)
[2024-04-15] MEDS: LORazepam INJ (*CRX) 2 MG/ML VIAL IV PUSH (05:37)
[2024-04-15 07:45] VITALS: PULSE 78; RESP 10; O2SAT 88
[2024-04-15 08:00] VITALS: BP 42/26; PULSE 78; RESP 8; TEMP 35.6; O2SAT 81
--- NOTE | 2024-04-15 16:58 | P.DN_ITS ---
Discharge Summary Date and Time Date of : 04/15/24 Time of : 11:28 Provider Pronounced By: 2 RNs Name of First RN That Pronounced: Kristen Chaudhry RN Name of Second RN That Pronounced: Mckenzie Serra RN Probable Cause of Probable Cause of : Hx of Throat cancer Hx of Lung resection Acute on chronic respiratory failure with hypoxia and hypercapnia Bilateral large pleural effusions Acute on chronic Congestive heart failure Impaired gas exchange Summary Hospital Course: This is a 78-year-old male a significant past medical history of throat cancer, lung cancer with resection, type 2 diabetes mellitus, bladder cancer, sleep apnea, AFib, CHF, CVA, BP hypothyroidism, hyperlipidemia, hypertension who presented to the hospital With acute respiratory distress. EMS was called to the patient's house for shortness a breath. He wears 2 L of oxygen at baseline was found to be hypoxic in the 80s on a non-rebreather. Work up in hospital included a chest x-ray which shown large bilateral pleural effusions with right consolidation, only the apices are aerated. Initial labs shown a white blood cell count of 12.4, bicarb greater than 40, proBNP 1490, troponin negative. ABG showed a pH of 7.072, pCO2 of 158.8, bicarb 45.2. patient is a known DNR DNI. Family wanting hospice / comfort measures only. He is being admitted for inpatient hospice with [facility]. He was started on Morphine infusion and was increased over the course of the day yesterday until he was more comfortable. He also received Ativan for anxiety and restlessness per hospice guidelines. Family was present at the bedside. He was on 40L 80% Airvo and was transitioned to 2L NC when made more comfortable. 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
== END 2024-04-15 11:28 | disposition expired | DRG 951 ==
LOC: ANH3MEDSUR 22:54
PROVIDERS: Physician Assistant; Student in an Organized Health Care Education/Training Program; Admitting Provider Internal Medicine; PCP Internal Medicine; Visit Provider Nurse Practitioner Acute Care
DX: Z51.5 Encounter for palliative care (principal); I50.33 Acute on chronic diastolic (congestive) heart failure; J96.22 Acute and chronic respiratory failure with hypercapnia; J96.21 Acute and chronic respiratory failure with hypoxia; E11.9 Type 2 diabetes mellitus without complications; I11.0 Hypertensive heart disease with heart failure; Z85.21 Personal history of malignant neoplasm of larynx; Z90.2 Acquired absence of lung [part of]; Z85.118 Personal history of other malignant neoplasm of bronchus and lung; Z85.51 Personal history of malignant neoplasm of bladder; Z66 Do not resuscitate; Z87.891 Personal history of nicotine dependence
CPT/HCPCS: 36415; 36600; 71045; 80053; 82375; 82805; 83050; 83880; 84484; 85018; 85025; 85610; 85730; 93005; 94640; 96365; 96375; 99285; A9270; J1596; J1940; J2060; J2270; J2919; J3475